=== PATIENT | female | born 1945 | race Caucasian/White ===

== ENCOUNTER → 2019-03-06 11:23 | Outpatient (CLI) | payer MEDICARE, OTHER, SELFPAY ==
--- NOTE | 2019-03-06 11:25 | DI.RAD.S_ITS ---
PROCEDURE: FL UPPER GI SERIES INDICATIONS: dysphagia COMPARISON: None. FINDINGS: Single contrast examination was performed due to limited patient mobility, body habitus and shortness of breath. KUB: Preprocedural histology specialist film demonstrates a normal bowel gas pattern. No suspicious abdominal calcifications. Visualized solid organ contours appear normal. Bony structures appear unremarkable. Esophagus: There is mildly decreased esophageal peristalsis. No strictures, extrinsic mass effects, or diverticula. There is gastroesophageal reflux to the level of the midesophagus. No hiatal hernia. Stomach: Stomach is normally distensible, without extrinsic mass effects. Pylorus and duodenal bulb demonstrate normal single-contrast morphology. There is ready transit of contrast through the gastric outlet into the small bowel. IMPRESSION: Spontaneous gastroesophageal reflux and mild esophageal dysmotility. No gross stricture identified. Dictated by: Gui Blair M.D. on 03/06/2019 at 13:25 Approved by: Gui Blair M.D. on 03/06/2019 at 13:26
[2019-03-06 12:00] LABS: Blood Urea Nitrogen 24 mg/dL (7-17); Estimated Glomerular Filt Rate > 60.0 mL/min (>60)
--- NOTE | 2019-03-06 12:08 | DI.CT.S_ITS ---
PROCEDURE: CT ABDOMEN PELVIS W CON INDICATIONS: dysphagia TECHNIQUE: After the administration of intravenous contrast, 5 mm thick sections acquired from the diaphragm to the symphysis. 5 mm coronal and sagittal reformats were acquired. For radiation dose reduction, the following was used: automated exposure control, adjustment of mA and/or kV according to patient size. COMPARISON: [facility], RG, CT ABDOMEN/PELVIS WITHOUT CONTRAST, 11/26/2015, 11:46. FINDINGS: Image quality: Excellent. ABDOMEN: Lung bases: No acute consolidation. Scattered subsegmental atelectasis and/or scarring. Heart size is normal. Solid organs: Hepatic steatosis. No focal hepatic lesion identified. Gallbladder unremarkable. Biliary system is non dilated. Pancreas enhances normally. Spleen is normal in size and enhancement. Multiple bilateral adrenal nodules measuring up to 1.5 cm on the left and 2.6 cm on the right, which are unchanged since 11/26/15. Therefore, statistically adenomas. No hydronephrosis. Bilateral renal cysts, with simple appearance although some of these are technically too small to characterize accurately. Peritoneum and bowel: No free fluid or free air. No evidence of bowel obstruction. There is question of distal stomach/proximal duodenal wall thickening however evaluation is suboptimal due to partially collapsed state. Also this may be grossly unchanged since 11/26/15 although difficult exact comparison of the presence of oral contrast material on the prior study. If necessary, upper endoscopy to could be performed to further investigate. Rectum is grossly unremarkable. Intra-abdominal postsurgical changes Nodes and vessels: No retroperitoneal or mesenteric adenopathy by size criteria. Infrarenal abdominal aortic aneurysm measuring 4.0 x 3.4 cm in cross-sectional dimensions and there is intraluminal thrombus. This has increased/developed since the prior study and consider surgical consultation/clinical management. Continued surveillance with ultrasound or CT recommended Miscellaneous: No ventral hernias. PELVIS: Genitourinary: Bladder wall thickness is normal. Miscellaneous: No inguinal hernias or adenopathy. Bones: No suspicious bony lesions. Lumbar vertebral body presumed bone island, unchanged No vertebral body compression fractures. IMPRESSION: Possible distal gastric and proximal duodenal wall thickening although technically uncertain clinical significance and etiology. If clinically necessary, this can be further investigated with upper endoscopy. Interval development of 4 cm infrarenal aortic aneurysm with intraluminal thrombus. Recommend surgical consultation/clinical management. Continued surveillance with ultrasound or CT could be performed. Bilateral renal cysts. Hepatic steatosis. Status post cholecystectomy. Unchanged bilateral adrenal adenomas Dictated by: Gui Blair M.D. on 03/06/2019 at 12:44 Approved by: Gui Blair M.D. on 03/06/2019 at 12:59
== END ==
PROVIDERS: PCP Nurse Practitioner Gerontology; Visit Provider Surgery
DX: R13.10 Dysphagia, unspecified (principal); N28.1 Cyst of kidney, acquired; K76.0 Fatty (change of) liver, not elsewhere classified; I71.4 Abdominal aortic aneurysm, without rupture; D35.02 Benign neoplasm of left adrenal gland; D35.01 Benign neoplasm of right adrenal gland; K21.9 Gastro-esophageal reflux disease without esophagitis; K22.4 Dyskinesia of esophagus; Z90.49 Acquired absence of other specified parts of digestive tract
CPT/HCPCS: 36415; 74177; 74240; 82565; 84520; Q9967

== ENCOUNTER 2019-05-22 13:51 | Day surgery (SDC) | payer MEDICARE, OTHER, SELFPAY ==
--- NOTE | 2019-05-22 | PATH_ITS ---
[facility] Accession Number: [id number] . 01 Material submitted: . PART A: gastrointestinal site - ANTRUM BIOPSIES PART B: esophagus - ESOPHAGEAL BIOPSIES PART C: colon - TRANSVERSE COLON PART D: colon - SPLENIC FLEXURE . 02 Diagnosis: A. Biopsies, Gastric Antrum: Mucosal hyperemia without associated significant inflammation involving the antral mucosa. Negative for evidence of Helicobacter on the H/E stain. Negative for intestinal metaplasia. Negative for dysplasia and malignancy. . B. Esophageal Biopsies: Fragments of squamocolumnar junction mucosa negative for specialized metaplasia of Jensen's-type esophagus. Negative for dysplasia and malignancy. Negative for squamous intraepithelial eosinophils. . C. Biopsy, Transverse Colon: Tubular adenoma. . D. Biopsy, Splenic Flexure: Tubular adenoma involving all biopsy fragments. [facility]/05/24/2019 . 02 Electronically signed: . Viraj Diego MD, Pathologist NPI- [id number] . 01 Gross description: . Part A: ANTRUM BIOPSIES: Received in formalin is 1 fragment(s) of ritchie, soft tissue measuring 0.5 x 0.3 x 0.1 cm submitted entirely in 1 cassette(s) Part B: ESOPHAGEAL BIOPSIES: Received in formalin are 2 fragment(s) of ritchie, soft tissue measuring 0.2 x 0.2 x 0.2 cm to 0.1 x 0.1 x 0.1 cm submitted entirely in 1 cassette(s) Part C: TRANSVERSE COLON: Received in formalin is 1 fragment(s) of ritchie, soft tissue measuring 0.7 x 0.4 x 0.3 cm submitted entirely in 1 cassette(s) Part D: SPLENIC FLEXURE: Received in formalin are multiple fragment(s) of ritchie, soft tissue measuring 0.7 x 0.4 x 0.1 cm in aggregate submitted entirely in 1 cassette(s) /CKI /CKI . 02 Pathologist provided ICD-10: D12.3 . 02 CPT . 858681, 671538, 617199, 738236 Performed at: 01 [facility] [address] [id number] MD Dawood Sosa MD Phone: [phone] Performed at: 02 [facility] [address] [place] [id number] MD Deb Luna MD Phone: [phone]
[2019-05-22 14:39] VITALS: BMI 34.4
[2019-05-22 14:46] VITALS: BP 168/90; PULSE 84; RESP 32; TEMP 36.7; O2SAT 94
--- NOTE | 2019-05-22 15:21 | P.HP_ITS ---
History of Present Illness Date Patient Seen: 05/22/19 Time Patient Seen: 15:21 Chief complaint: [id number] Narrative: 73yo F with extensive past medical and surgical history. She is an obese, active and adamant smoker. She has COPD and is s/p partial lung resection; on 2LNC at home. Has had cardiac bypass surgery. She has DM with a recent HbA1c of 6.7%. Her abd surgical history includes a remote DENA via midline laparotomy, tubal ligation via pfannenstiel incision, an apparent open cholecystectomy, an appendectomy, and two ventral hernia repairs using mesh. She says she has [address] currently. She also says she has had 'a lot of' her intestines removed but is unclear when or why. She says they always find polyps on her colonoscopies, last being in 2017 with a plan for 5 year follow up. Her current complaints are the 'ballooning' of her abdomen, increases as the day goes on, is uncomfortable and throws her off balance. She also says she feels food get stuck in her 'sternum, like it is hitting a wall' and it makes her worried to keep eating. Has never vomited or choked. This happens intermittently and she is not sure of any correlations. Does have a long- standing history of heartburn and takes a daily omeprazole which mostly but not entirely controls it. Does not recall having an EGD. No weight loss reported other than minimally because she is trying to improve her health. 03/22- FU after imaging. No current complaints of dysphagia or heartburn. UGI shows mild GERD and mild esophageal dysmotility. CT shows no hernia but diastasis of the abdominal wall. An infrarenal AAA with clot is noted, as is possible wall thickening of the distal stomach and proximal duodenum. When explaining that pt had no hernia, she asked what then was making 'the pain in my sternum' especially when laying supine. I explained this is likely due to reflux. When discussing endoscopy, she says she thinks she is due for a colonoscopy and last time 28 polyps were taken out. Mentions in passing as we end the interview that she is supposed to be on oxygen and is waiting for a mobile pack. 05/22- for procedures, no changes Patient History Family History Mother Hypertension Father Heart disease Grandmother Diabetes mellitus Grandfather Cancer Social History Smoking Status: Current every day smoker Family & Social History Family History Mother Hypertension Father Heart disease Grandmother Diabetes mellitus Grandfather Cancer Tobacco & Substance use: Smoking Status Current every day smoker Meds Home Medications Medication Instructions Recorded Confirmed Type aspirin 81 mg tablet,delayed 81 mg PO DAILY 02/14/19 05/22/19 History release atorvastatin 80 mg tablet 80 mg PO DAILY 02/14/19 05/22/19 History budesonide-formoterol HFA 160 2 puff INHALATION BID 02/14/19 05/22/19 History mcg-4.5 mcg/actuation aerosol inhaler cetirizine 10 mg capsule 10 mg PO DAILY cap 02/14/19 05/22/19 History ezetimibe 10 mg tablet 10 mg PO DAILY 02/14/19 05/22/19 History furosemide 40 mg tablet 40 mg PO DAILY 02/14/19 05/22/19 History insulin glargine (U-100) 100 35 unit SUBCUT DAILY 02/14/19 05/22/19 History unit/mL (3 mL) subcutaneous pen isosorbide mononitrate ER 30 mg 30 mg PO BID tab 02/14/19 05/22/19 History tablet,extended release 24 hr lorazepam 0.5 mg tablet 0.5 mg PO QD-BID PRN 02/14/19 05/22/19 History metoprolol succinate ER 50 mg 50 mg PO BID each 02/14/19 05/22/19 History capsule sprinkle, ext. release 24 hr insulin aspart U-100 [Novolog 3 unit SUBCUT QPM 05/22/19 05/22/19 History Flexpen U-100 Insulin] levalbuterol tartrate [Xopenex HFA] 1 puff INHALATION PRN PRN 05/22/19 05/22/19 History nitroglycerin 0.4 mg SUBLINGUAL Q5-15M PRN 05/22/19 05/22/19 History omeprazole 1 tab PO DAILY 05/22/19 05/22/19 History Allergies Allergy/AdvReac Type Severity Reaction Status Date / Time latex Allergy Unknown Rash Verified 05/22/19 14:52 Sulfa (Sulfonamide Allergy Unknown vomiting, Verified 05/22/19 14:52 Antibiotics) rash Review of Systems Constitutional Constitutional: Reports as per HPI Exam Vital Signs (past 8 hours): - 05/22/19 14:46 Temperature 98.1 F Pulse Rate 84 Respiratory Rate 32 H Blood Pressure 168/90 H Pulse Oximetry 94 Oxygen Delivery Method Room Air Narrative Exam Narrative: AAO, NAD, obese female EOMI, MMM, no scleral icterus mildly labored RA soft, nd has rolling walker Assessment & Plan (1) Dysphagia: Current visit: Yes Status: Acute Assessment & Plan narrative: - reflux and esophageal dysmotility, also wall thickening on CT --> plan for EGD with biopsies, hold PPI --> all R/B/A discussed and pt wishes to proceed --> propofol due to co-morbid conditions - due for surveillance colonoscopy per our records so will do at same time
[2019-05-22] MEDS: LACTATED RINGERS 1,000 ML 42 ML IV (15:44)
[2019-05-22] MEDS: TETRACAINE/BENZOCAINE/BUTAMBEN (CETACAINE) BOTTLE 1 SPRAY TOP (16:18)
[2019-05-22 17:01] VITALS: BP 111/38; PULSE 78; RESP 22; TEMP 36.2; O2SAT 95
--- NOTE | 2019-05-22 17:03 | P.OP.ENDO_ITS ---
Operative Date/Time/Diagnoses Date of procedure: 05/22/19 Time of procedure: 17:02 Pre-op diagnosis: 1. GERD 2. History of colon polyps Post-op diagnosis: same Procedure & Clinicians Study performed: 1. EGD with biopsies 2. Surveillance colonoscopy Same procedure as scheduled: Yes Indications: 73yo F with extensive medical co-morbid conditions including angina, COPD, AAA, and high smoking history with need for dx EGD for GERD and epigastric pain as well as a surveillance colonoscopy for history of 'extensive polyp removal.' I have asked anesthesia to be involved for her high risk sedation. Surgeon: Radha Caballero Procedure Notes SCOAP/Timeout: 1606 Procedure in detail: After obtaining informed consent, the patient was brought to the GI suite and placed in the right lateral decubitus position due to her comfort on the examination table. After placement of appropriate monitors, the patient was induced until an appropriate level of sedation was achieved. A time out was held per SCOAP protocol. A bite block was gently placed between the patient's teeth. The endoscope was lubricated and then passed into the patient's posterior oropharynx. Pt had a severe coughing response and had copious secretions requiring brief cessation of endoscopy and suctioning. Then the esophagus was cannulated under direct vision and the scope was passed to the second portion of the duodenum without difficulty. The scope was then withdrawn with careful examination of all areas of the upper GI tract and mucosa. In the stomach, the instrument was retroflexed and the GE junction examined. The scope was straightened and the procedure continued with examination of the remainder of the upper GI tract. Findings include chronic gastritis changes and an antral biopsy is sent for h pylori. Also noted is a 1cm discolored pale patch of mucosa at 15cm in the proximal esophagus- this was biopsied. Air was aspirated from the stomach and the endoscope gently removed from the esophagus. The examination table was tu rned, patient placed in left lateral decubitus, and we continued with the colonoscopy. A digital rectal examination was performed and did not reveal any masses or obstructing lesions. The colonoscope was gently passed into the patient's anus and the entire colon navigated to the level of the ileocolic anastomosis, which patient had not reported to us, with minimal difficulty. Prep was poor. Then the scope was slowly withdrawn being sure to go before and beyond all mucosal folds and prominences as able to get a thorough examination. Two 1cm polyps are noted, in the transverse colon (75cm) and the splenic flexure (65cm). The first was removed for biopsy and the second incompletely removed for biopsy. A diminutive rectal polyp is noted on retroflexion. At the level of the rectal vault, the scope was retroflexed and the internal anal canal was examined. The scope was straightened and air aspirated from the colon. The instrument was removed from the patient's body and the procedure was concluded. The patient was allowed to awaken from sedation without difficulty and taken to the post-anesthesia care unit in good condition. Scope withdrawal time: 18 min Sedation minutes: 47 Findings: gastritis, polyp (1. Transverse colon polyp- 75cm (<1cm), removed for biopsy 2. Splenic flexure polyp- 65cm (<1cm), incompletely removed for biopsy ) and other findings (1. proximal esophagus mucosal discoloration (at 15cm, 1cm patch of pale mucosa, soft on biopsy) ) Specimen(s): other (1. Antral biopsy for H pylor 2. Proximal esophageal biopsy 3. Transverse colon polyp- 75cm (<1cm), removed for biopsy 4. Splenic flexure polyp- 65cm (<1cm), incompletely removed for biopsy ) Complications: other (extensive coughing, secretions, and initial hypoxia at start of EGD which resolved with suctioning and anesthesia adjustments) Impression: 1. Chronic gastritis 2. Discolored mucosa in proximal esophagus- biopsied 3. Ileocolic anastomosis 4. Poor prep 5. Transverse colon polyp at 75cm- removed for biopsy 6. Splenic flexure polyp at 65 cm- incompletely removed for biopsy 7. Diminutive polyp in rectum noted on retroflexion, not removed Recommendations: Colonscopy in 5 years (pending path and medical condition ) and Continue medication(s) Follow up: weeks Disposition: PACU
[2019-05-22 17:06] VITALS: BP 108/69; PULSE 76; RESP 23; O2SAT 95
[2019-05-22 17:11] VITALS: BP 127/76; PULSE 74; RESP 36; O2SAT 96
[2019-05-22 17:52] VITALS: BP 121/79; PULSE 77; RESP 32; TEMP 36.4; O2SAT 95
== END 2019-05-22 17:45 | disposition home or self-care (01) ==
PROVIDERS: PCP Nurse Practitioner Gerontology; Visit Provider Surgery
PROC: 0DJ08ZZ Inspection of Upper Intestinal Tract, Via Natural or Artificial Opening Endoscopic (ICD-10-PCS; CPT 43235; principal; 2019-05-22 16:30)
PROC: 0DJD8ZZ Inspection of Lower Intestinal Tract, Via Natural or Artificial Opening Endoscopic (ICD-10-PCS; CPT 45378; 2019-05-22 16:30)
DX: Z86.010 Personal history of colon polyps (principal); K21.9 Gastro-esophageal reflux disease without esophagitis; F17.210 Nicotine dependence, cigarettes, uncomplicated; J44.9 Chronic obstructive pulmonary disease, unspecified; E11.9 Type 2 diabetes mellitus without complications; E66.9 Obesity, unspecified; Z79.4 Long term (current) use of insulin; K29.70 Gastritis, unspecified, without bleeding; R09.02 Hypoxemia; D12.3 Benign neoplasm of transverse colon
CPT/HCPCS: 45380; 43239; 88305; 99152; 99153; J2704; J3010

== ENCOUNTER → 2019-06-11 07:19 | Outpatient (CLI) | payer MEDICARE, OTHER, SELFPAY ==
--- NOTE | 2019-06-11 15:35 | PM.TREADMILL ---
Cardiac Stress Test Report Referral & Results Date Patient Seen: 06/11/19 Requesting provider: Ernst Moran Indication: Coronary disease Rest ECG: Unremarkable Procedure Note: After both written and verbal informed consent the patient had an IV started by the diagnostic imaging RN, and then was hooked up to the treadmill monitoring system. The Lexiscan material, and then the Cardiolite tracer, were administered sequentially. An additional 3 min was spent monitoring the patient while supine on the gurney. The patient had a normal response to all infused materials. She did become quite dyspneic with the Lexiscan infusion but this resolved (mostly resolved anyway) prior to the termination of the monitoring period. Impression: Response to infuse materials as above Please see perfusion imaging for details regarding possible ischemia Please note: Actual ECG tracings can be found in the PACS system.
--- NOTE | 2019-06-11 21:58 | DI.NM.S_ITS ---
DATE OF SERVICE: 06/11/2019 PROCEDURE: Pharmacological perfusion study. INDICATIONS: Interscapular pain with known history of coronary artery disease, status post single-vessel bypass surgery with GALEAS graft in 2001, hypertension, hyperlipidemia, diabetes mellitus, COPD, abdominal aortic aneurysm. RADIOPHARMACEUTICAL: 24.7 mCi technetium-99m Myoview IV was injected at stress and 14.9 mCi technetium-99m Myoview IV was injected at rest. CARDIAC STRESS: Patient underwent IV Lexiscan perfusion study under the supervision of an attending staff. Patient remained hemodynamically stable. Blood pressure is 180/100. Baseline rhythm was sinus with frequent PACs. I don't see obvious atrial fibrillation. There was asymmetrical anterolateral T- wave inversion. During stress, there was no new convincing ischemic changes. Patient remained to have frequent PACs as well as some PVCs without any ventricular tachycardia. RAW DATA: There was breast shadow seen. GATED STUDY: Stress LV ejection fraction 81% without any obvious wall motion abnormalities. I don't see any significant wall motion abnormalities. No transient ischemic dilatation. TID ratio is 0.93, which is within normal limits. Resting LV end-diastolic volume is 61 mL. Lung/heart ratio is 0.37, which is within normal limits. MYOCARDIAL PERFUSION SCAN: Please note that this patient does not have any prone images. Stress supine images were compared to with resting supine images. It appears to be that patient has predominantly fixed, moderate-sized severely decreased perfusion involving [id number] anterior wall and anterior apex without any reversible ischemia on visual inspection. CONCLUSION: 1. No obvious reversible ischemia. 2. Patient has predominantly fixed, moderate-sized severely decreased perfusion of [id number] anterior wall and anterior apex. On gated study, preserved left ventricular (LV) function without any wall motion abnormalities in those segments. On gated study, breast shadow was seen. In absence of prone images, difficult to distinguish whether it's a breast tissue attenuation artifact or previous myocardial infarction. Patient had perfusion study in 02/2015; at that time also she had similar perfusion defect. However, normal wall motion goes against the diagnosis of previous transmural myocardial infarction. Patient has baseline frequent premature atrial contractions (PACs). I don't see obvious atrial fibrillation. Baseline blood pressure was 180/100. Sum stress score is 6 and sum resting score is 4; however, on my visual inspection, I don't see any significant reversible ischemia. It's a predominantly fixed perfusion defect. Patient's weight is 230 pounds. Clinical correlation is recommended. Angie Swartz - JOANA/katherine/ doc#: [id number]/job#: [id number] dd: 06/11/2019 16:56:00 dt: 06/11/2019 17:42:00 DICTATING MD/COPIES TO: Festus Acevedo MD COPIES MNE: QUIN
== END ==
PROVIDERS: Family Provider Nurse Practitioner Gerontology; PCP Nurse Practitioner Gerontology; Visit Provider Internal Medicine Cardiovascular Disease
DX: I25.10 Atherosclerotic heart disease of native coronary artery without angina pectoris (principal); M25.519 Pain in unspecified shoulder; I10 Essential (primary) hypertension; E78.5 Hyperlipidemia, unspecified; E11.9 Type 2 diabetes mellitus without complications; J44.9 Chronic obstructive pulmonary disease, unspecified; I71.4 Abdominal aortic aneurysm, without rupture
CPT/HCPCS: 78452; 93016; 93017; 93018; A9502; J2785

== ENCOUNTER 2020-06-09 16:39 | Emergency (ER) | payer MEDICARE, OTHER, SELFPAY ==
[2020-06-09] VITALS (10 sets, daily range): BP systolic 144–167; BP diastolic 63–101; PULSE 73–103; RESP 20–39; TEMP 36.9; O2SAT 96–98
[2020-06-09] MEDS: ALBUTEROL HFA 200 PUFF/18 GM INH (COVID POS/VENT PTS) INH (17:17)
[2020-06-09 17:36] LABS: Add Manual Diff / Slide Review NO; Basophils Absolute Auto 100 /uL (0-100); Basophils Percent Auto 0.5 % (0-2); Eosinophils Absolute Auto 700 /uL (0-450); Eosinophils Percent Auto 4.8 % (2-4); Hematocrit 51.4 % (36-46); Hemoglobin 17.4 g/dL (12.0-16.0); Lymphocytes Absolute Auto 1600 /uL (1100-4500); Mean Corpuscular HGB Conc 33.9 % (30-36); Mean Corpuscular Hemoglobin 33.2 PG (26-34); Monocytes Absolute Auto 900 /uL (0-900); Monocytes Percent Auto 6.1 % (3-14); Neutrophils Absolute Auto 11100 /uL (1500-7000); Neutrophils Percent Auto 77.6 % (50-75); Platelet Count 191 X10^3/uL (150-400); Red Blood Cell Count 5.24 X10^6/uL (4.0-5.2); Red Cell Distribution Width 13.3 % (11.6-14.8); White Blood Cell Count 14.4 X10^3/uL (4.5-11.0)
[2020-06-09 18:06] LABS: Alanine Aminotransferase 34 IU/L (<35); Albumin 4.2 g/dL (3.5-5.0); Albumin Globulin Ratio 1.5 (1.0-2.8); Alkaline Phosphatase 136 U/L (38-126); Aspartate Aminotransferase 30 IU/L (14-36); BUN Creatinine Ratio 20.9 (6-22); Bilirubin Total 0.7 mg/dL (0.2-1.3); Blood Urea Nitrogen 24 mg/dL (7-17); Calcium 10.8 mg/dL (8.4-10.2); Carbon Dioxide 34 mmol/L (22-32); Chloride 101 mmol/L (98-107); Creatine Kinase 60 U/L (30-135); Globulin 2.8 g/dL (1.7-4.1); Glucose 131 mg/dL (80-110); HEMOLYSIS < 15 (0-50); Potassium 4.3 mmol/L (3.4-5.1); Sodium 140 mmol/L (137-145)
[2020-06-09 18:07] LABS: C-Reactive Protein Quant < 0.5 mg/dL (<1.0)
[2020-06-09 18:16] LABS: NT-proBNP (BNP-Adult 18+) 294 pg/mL (<450); Troponin I < 0.012 ng/mL (0.01-0.034)
[2020-06-09 18:20] LABS: Procalcitonin < 0.05 ng/mL (<0.5)
--- NOTE | 2020-06-09 18:30 | ED_ITS ---
HPI - SOB/Dyspnea General Chief Complaint: Shortness of Breath/Dyspnea Stated Complaint: shortness of breath w/ cough Time Seen by Provider: 06/09/20 16:47 Source: patient and EMS Mode of arrival: EMS Limitations: no limitations History of Present Illness HPI Narrative: Patient is a 74-year-old female. Has a history of COPD. Has oxygen at home. Uses 2-3 L at night and some oxygen during the day if needed. States that for the past couple days she has had some problems breathing and wheezing. She has been using her Symbicort and Xopenex and albuterol nebulizer. She states that earlier today she started coughing and despite all of these prior interventions could not catch her breath. Denies any fevers. Called EMS. Prior to arrival here in the emergency department she did receive Solu-Medrol IV by EMS and also albuterol nebs. Patient states she has had no contact with anyone that his presenting symptoms of COVID-19. She has been taking all the rest of her medications. She is still smoking. Denies any chest pain. The time my evaluation patient states she feels much better but this was after the interventions that I just described. Related Data Home Medications Medication Instructions Recorded Confirmed aspirin 81 mg tablet,delayed 81 mg PO DAILY 02/14/19 05/22/19 release atorvastatin 80 mg tablet 80 mg PO DAILY 02/14/19 05/22/19 budesonide-formoterol HFA 160 2 puff INHALATION BID 02/14/19 05/22/19 mcg-4.5 mcg/actuation aerosol inhaler cetirizine 10 mg capsule 10 mg PO DAILY cap 02/14/19 05/22/19 ezetimibe 10 mg tablet 10 mg PO DAILY 02/14/19 05/22/19 furosemide 40 mg tablet 40 mg PO DAILY 02/14/19 05/22/19 insulin glargine 100 unit/mL (3 35 unit SUBCUT DAILY 02/14/19 05/22/19 mL) subcutaneous pen isosorbide mononitrate 30 mg 30 mg PO BID tab 02/14/19 05/22/19 tablet,extended release 24 hr lorazepam 0.5 mg tablet 0.5 mg PO QD-BID PRN 02/14/19 05/22/19 metoprolol succinate 50 mg capsule 50 mg PO BID each 02/14/19 05/22/19 sprinkle, ext. release 24 hr Novolog Flexpen U-100 Insulin 3 unit SUBCUT QPM 05/22/19 05/22/19 levalbuterol tartrate 1 puff INHALATION PRN PRN 05/22/19 05/22/19 nitroglycerin 0.4 mg SUBLINGUAL Q5-15M PRN 05/22/19 05/22/19 omeprazole 1 tab PO DAILY 05/22/19 05/22/19 Previous Rx's Medication Instructions Recorded levofloxacin 750 mg PO DAILY 4 Days #4 tab 06/09/20 Allergies Allergy/AdvReac Type Severity Reaction Status Date / Time latex Allergy Unknown Rash Verified 05/22/19 14:52 Sulfa (Sulfonamide Allergy Unknown vomiting, Verified 05/22/19 14:52 Antibiotics) rash Review of Systems Constitutional Constitutional: Denies fever(s) and Denies headache(s) ENT Ears, Nose, Mouth, and Throat: Denies headache(s) Cardiovascular Cardiovascular: Denies chest pain and Reports dyspnea Respiratory Respiratory: Reports cough and Reports dyspnea Gastrointestinal Gastrointestinal: Denies abdominal pain, Denies nausea and Denies vomiting Musculoskeletal Musculoskeletal: Denies arthralgias and Denies myalgias Integumentary/Breasts Skin/Breast: Denies rash Neurologic Neurologic: Denies behavioral changes and Denies headache(s) Psychiatric Psychiatric: Denies behavioral changes Hematologic/Lymphatic Hematologic/Lymphatic: Denies easy bleeding and Denies easy bruising Allergic/Immunologic Allergic/Immunologic: Denies urticaria Patient History Medical History COPD (chronic obstructive pulmonary disease) (Acute) Diabetes (Acute) Family History Mother Hypertension Father Heart disease Grandmother Diabetes mellitus Grandfather Cancer Social History Smoking Status: Current every day smoker Smoking Status: Current every day smoker Exam Initial Vital Signs Initial Vital Signs: Vital Signs Temperature 98.4 F 06/09/20 17:27 Pulse Rate 73 06/09/20 17:27 Respiratory Rate 20 06/09/20 17:27 Blood Pressure 167/72 H 06/09/20 17:27 Pulse Oximetry 97 06/09/20 17:27 Const General: cooperative and comfortable Limitations: mental status not altered HENMT Head: normal to inspection and normocephalic Resp Effort & Inspection: normal respiratory effort, not labored and tachypneic Auscultation: clear to auscultation bilaterally and no wheezes Cardio Rate: regular rate Rhythm: regular rhythm GI Inspection: non-distended Palpation: soft Skin Lesions: no lesions Rashes: no rashes Neuro General: patient alert, patient awake and patient oriented x3 Cognition: normal cognition Speech: speech normal Extrem General: normal to inspection and capillary refill normal Psych Appearance: grossly normal and well kempt Scores GCS [place] coma scale eye opening: Spontaneous [place] coma scale verbal response: Orientated [place] coma scale motor response: Obey commands [place] coma scale total score: 15 Course Orders Ordered: ED Orders 06/09/20 16:47 Procalcitonin Stat 06/09/20 16:48 High flow/High humidity nasal NOW 06/09/20 17:10 C-Reactive Protein Quant Stat Complete Blood Count AUTO DIFF Stat Comprehensive Metabolic Panel Stat Ferritin Stat NT-proBNP (BNP-Adult 18+) Stat Troponin & CK Cardiac Panel Stat 06/09/20 18:30 XR chest 1V Stat Discontinued Medications Albuterol (Ventolin Hfa (Vent/Covid R/O)) 2 puff INH Q4H PRN PRN Reason: Shortness Of Breath Last Admin: 06/09/20 17:17 Dose: 2 puff Documented by: ROBIN Levofloxacin (Levaquin) 750 mg PO NOW ONE Stop: 06/09/20 19:23 Last Admin: 06/09/20 19:34 Dose: 750 mg Documented by: SAMMI Methylprednisolone (Solu-Medrol 125 Mg Vial) 125 mg IV NOW ONE Stop: 06/09/20 18:42 Last Admin: 06/09/20 19:53 Dose: Not Given Documented by: DESHAWN Vital Signs Vital signs: Vital Signs - 8 hr 06/09/20 17:27 06/09/20 17:28 06/09/20 18:07 Temperature 98.4 F Pulse Rate 73 103 H 96 H Respiratory Rate 20 22 24 Blood Pressure 167/72 H Pulse Oximetry 97 96 96 06/09/20 18:09 06/09/20 18:12 06/09/20 18:31 Temperature Pulse Rate 98 H 100 H 101 H Respiratory Rate 24 39 H 39 H Blood Pressure 152/66 H 152/66 H 148/101 H Pulse Oximetry 97 97 06/09/20 19:00 06/09/20 19:01 06/09/20 19:30 Temperature Pulse Rate 98 H 97 H 93 H Respiratory Rate 38 H 34 H 29 H Blood Pressure 144/78 H Pulse Oximetry 98 97 97 06/09/20 19:31 Temperature Pulse Rate 92 H Respiratory Rate 25 H Blood Pressure 149/63 H Pulse Oximetry 97 MDM - SOB/Dyspnea Medical Records Attestation: I reviewed the patient's medical records. Lab Data Attestation: I reviewed the patient's lab results. Result diagrams: 06/09/20 17:10 06/09/20 17:10 Labs: Lab Results 06/09/20 06/09/20 06/09/20 Range/Units 14:10 16:47 17:10 WBC 14.4 H (4.5-11.0) X10^3/uL RBC 5.24 H (4.0-5.2) X10^6/uL Hgb 17.4 H (12.0-16.0) g/dL Hct 51.4 H (36-46) % MCV 98.0 (80-100) fL MCH 33.2 (26-34) PG MCHC 33.9 (30-36) % RDW 13.3 (11.6-14.8) % Plt Count 191 (150-400) X10^3/uL Neut % (Auto) 77.6 H (50-75) % Lymph % (Auto) 11.0 L (25-40) % Meagher % (Auto) 6.1 (3-14) % Eos % (Auto) 4.8 H (2-4) % Baso % (Auto) 0.5 (0-2) % Neut # (Auto) 91014 H (2033-5969) /uL Lymph # (Auto) 1600 (0362-8615) /uL Meagher # (Auto) 900 (0-900) /uL Eos # (Auto) 700 H (0-450) /uL Baso # (Auto) 100 (0-100) /uL Sodium (137-145) mmol/L Potassium (3.4-5.1) mmol/L Chloride (98-107) mmol/L Carbon Dioxide (22-32) mmol/L BUN (7-17) mg/dL Creatinine (0.52-1.04) mg/dL Estimated GFR (>60) mL/min BUN/Creatinine Ratio (6-22) Glucose (80-110) mg/dL Calcium (8.4-10.2) mg/dL Ferritin (11-264) ng/mL Total Bilirubin (0.2-1.3) mg/dL AST (14-36) IU/L ALT (<35) IU/L Alkaline Phosphatase (38-126) U/L Total Creatine Kinase (30-135) U/L CK-MB (CK-2) CK-MB (CK-2) Rel Index Troponin I (0.01-0.034) ng/mL C-Reactive Protein (<1.0) mg/dL NT-Pro-B Natriuret Pep (<450) pg/mL Total Protein (6.3-8.2) g/dL Albumin (3.5-5.0) g/dL Globulin (1.7-4.1) g/dL Albumin/Globulin Ratio (1.0-2.8) Procalcitonin < 0.05 (<0.5) ng/mL COVID-19 PCR Cancelled 06/09/20 06/09/20 Range/Units 17:10 17:10 WBC (4.5-11.0) X10^3/uL RBC (4.0-5.2) X10^6/uL Hgb (12.0-16.0) g/dL Hct (36-46) % MCV (80-100) fL MCH (26-34) PG MCHC (30-36) % RDW (11.6-14.8) % Plt Count (150-400) X10^3/uL Neut % (Auto) (50-75) % Lymph % (Auto) (25-40) % Meagher % (Auto) (3-14) % Eos % (Auto) (2-4) % Baso % (Auto) (0-2) % Neut # (Auto) (8855-5174) /uL Lymph # (Auto) (0037-4084) /uL Meagher # (Auto) (0-900) /uL Eos # (Auto) (0-450) /uL Baso # (Auto) (0-100) /uL Sodium 140 (137-145) mmol/L Potassium 4.3 (3.4-5.1) mmol/L Chloride 101 (98-107) mmol/L Carbon Dioxide 34 H (22-32) mmol/L BUN 24 H (7-17) mg/dL Creatinine 1.15 H (0.52-1.04) mg/dL Estimated GFR 46.0 L (>60) mL/min BUN/Creatinine Ratio 20.9 (6-22) Glucose 131 H (80-110) mg/dL Calcium 10.8 H (8.4-10.2) mg/dL Ferritin 50 (11-264) ng/mL Total Bilirubin 0.7 (0.2-1.3) mg/dL AST 30 (14-36) IU/L ALT 34 (<35) IU/L Alkaline Phosphatase 136 H (38-126) U/L Total Creatine Kinase 60 (30-135) U/L CK-MB (CK-2) TNP CK-MB (CK-2) Rel Index TNP Troponin I < 0.012 (0.01-0.034) ng/mL C-Reactive Protein < 0.5 (<1.0) mg/dL NT-Pro-B Natriuret Pep 294 (<450) pg/mL Total Protein 7.0 (6.3-8.2) g/dL Albumin 4.2 (3.5-5.0) g/dL Globulin 2.8 (1.7-4.1) g/dL Albumin/Globulin Ratio 1.5 (1.0-2.8) Procalcitonin (<0.5) ng/mL COVID-19 PCR Negative Point of Care Testing Glucose POC 104 Imaging Data Chest x-ray: Radiologist's Impression: [address] [address] XRay Report Signed Patient: Angie Swartz RMR#: [id number] : 4Acct:[id number] Age/Sex: 74 / FDate of Service: 06/09/20 Loc: ED Accession Number: [id number] Procedure: XR chest 1V Ordering Provider: Jason Mccray D.O. PROCEDURE: XR CHEST 1V INDICATIONS: Shortness of breath TECHNIQUE: One view of the chest was acquired. COMPARISON: [facility], RG, CT THORAX WITH CONTRAST, 12/21/2018, 12:01. FINDINGS: Surgical changes and devices: Chain sutures in the left lung. Lungs and pleura: Small left pleural effusion with overlying atelectasis/consolidation. The right lung and pleural space are clear. Mediastinum: Aortic atherosclerosis. Mediastinal contours appear normal. Heart size is normal. Bones and chest wall: No suspicious bony lesions. Overlying soft tissues appear unremarkable. IMPRESSION: Small left pleural effusion with overlying atelectasis and consolidation. Dictated by: Alexsander Saleh M.D. on 06/09/2020 at 18:57 Approved by: Alexsander Saleh M.D. on 06/09/2020 at 18:58 ECG Data Attestation: I personally reviewed and interpreted this ECG as follows: Prior ECG tracings: not available for review Interpretation: Sinus rhythm Normal axis Ventricular rate of 99 Occasional PVC Normal QTC Nonspecific ST T wave changes MDM Narrative Medical decision making narrative: Patient's code was negative. The time my evaluation she had received albuterol nebs and also steroids. Patient reports that she was feeling much better. She was on less than 3 L of oxygen by nasal cannula which she has at home and uses occasionally. Chest x-ray does have some concerning findings for pneumonia however she reports no increasing cough or sputum production. She does have a leukocytosis. I do not think that this leukocytosis is secondary to the steroids that she received just a short time prior to arrival here in the ER. I feel that given the findings on the chest x- ray the coughing and the leukocytosis that treating her with antibiotics is not unreasonable. She is given a 1st dose here in the ER. Will send home with a prescription. Patient states she does have prednisone at home that she was given by her knurling machine operator to take if needed. She has not been taking these over the past couple days. I did advise her to start taking them as directed which is 40 mg a day for the next 5 days. Patient denies any chest pain. She is back to baseline with regard to her respiratory status. We did discuss steroids and healthy help in her disease process. She did not understand exactly how these medications helped her. We discussed return precautions and follow-up instructions. She expressed understanding and agreement. Discharge Plan Departure Patient Disposition: Home Clinical Impression: COPD exacerbation Pneumonia Qualifiers: Pneumonia type: due to unspecified organism Laterality: left Lung location: unspecified part of lung Qualified Code(s): J18.9 - Pneumonia, unspecified organism Discharge Date/Time: 06/09/20 20:20 Instructions: Chronic Obstructive Pulmonary Disease Activity Restrictions/Additional Instructions: Continue all of your medications as directed. I do recommend that tomorrow you start taking the prednisone that was prescribed to you by your lung doctor as directed. You were given your 1st dose of antibiotics here in the emergency department. Your next dose will be Tuesday06/10/20. Return to the emergency department for any new or worsening symptoms. Your prescription was electronically transmitted to [facility] pharmacy in [place]. Prescriptions: New levofloxacin 750 mg tablet 750 mg PO DAILY 4 Days Qty: 4 RF: 0 No Action ezetimibe [Zetia] 10 mg tablet 10 mg PO DAILY RF: 0 Symbicort 160-4.5 mcg/actuation HFA aerosol inhaler 2 puff INHALATION BID RF: 0 furosemide 40 mg tablet 40 mg PO DAILY RF: 0 metoprolol succinate 50 mg capelina,ER 24hr dose pack 50 mg PO BID RF: 0 isosorbide mononitrate 30 mg tablet extended release 24 hr 30 mg PO BID RF: 0 atorvastatin 80 mg tablet 80 mg PO DAILY RF: 0 lorazepam 0.5 mg tablet 0.5 mg PO QD-BID PRN (Reason: Anxiety) RF: 0 aspirin 81 mg tablet,delayed release (DR/EC) 81 mg PO DAILY RF: 0 cetirizine 10 mg capsule 10 mg PO DAILY RF: 0 Lantus Solostar U-100 Insulin 100 unit/mL (3 mL) insulin pen 35 unit SUBCUT DAILY RF: 0 omeprazole 20 mg capsule,delayed release(DR/EC) 1 tab PO DAILY RF: 0 nitroglycerin 0.4 mg Tablet, Sublingual 0.4 mg SUBLINGUAL Q5-15M PRN (Reason: Chest Pain) RF: 0 levalbuterol tartrate 45 mcg/actuation HFA aerosol inhaler 1 puff inhalation PRN PRN (Reason: Dyspnea) RF: 0 Novolog Flexpen U-100 Insulin 100 unit/mL (3 mL) Insulin Pen 3 unit SUBCUT QPM RF: 0 Referrals: Deb Martin ARNP [Primary Care Provider] -
[2020-06-09 18:38] LABS: Ferritin 50 ng/mL (11-264)
[2020-06-09 18:56] LABS: COVID19 -Nasal RAPID Negative (Negative)
[2020-06-09] MEDS: levoFLOXacin 250 MG TABLET 750 MG PO (19:34)
== END 2020-06-09 20:20 | disposition home or self-care (01) ==
PROVIDERS: Emergency Medicine; Emergency Provider Emergency Medicine; Family Provider Nurse Practitioner Gerontology; PCP Nurse Practitioner Gerontology
DX: J44.1 Chronic obstructive pulmonary disease with (acute) exacerbation (principal); J18.9 Pneumonia, unspecified organism
CPT/HCPCS: 36415; 71045; 80053; 82550; 82728; 83880; 84145; 84484; 85025; 86140; 87635; 93005; 93010; 94640; 99284; 99285; A9270

== ENCOUNTER 2020-06-19 16:54 | Observation (INO) | payer MEDICARE, OTHER, SELFPAY ==
[2020-06-19] VITALS (14 sets, daily range): BP systolic 133–186; BP diastolic 66–86; PULSE 66–80; RESP 16–31; TEMP 36.1–36.9; O2SAT 91–97; BMI 33.3; BMI 34.5
--- NOTE | 2020-06-19 17:07 | DI.RAD.S_ITS ---
PROCEDURE: XR CHEST 2V INDICATIONS: shortness of breath TECHNIQUE: 2 views of the chest were acquired. COMPARISON: [facility], , XR CHEST 1V, 06/09/2020, 18:43. FINDINGS: Surgical changes and devices: None. Lungs and pleura: Lungs are clear. No pleural effusions or pneumothorax. Pleural scar is redemonstrated at the left costophrenic sulcus. Mediastinum: Mediastinal contours are normal. Heart size is enlarged, as before. Atheromatous calcifications are present at the thoracic aortic arch. Bones and chest wall: No suspicious bony abnormalities. Soft tissues appear unremarkable. IMPRESSION: No acute cardiopulmonary findings. Dictated by: Tricia Gastelum M.D. on 06/19/2020 at 16:58 Approved by: Tricia Gastelum M.D. on 06/19/2020 at 16:59
[2020-06-19 17:23] LABS: Add Manual Diff / Slide Review NO; Basophils Absolute Auto 0 /uL (0-100); Basophils Percent Auto 0.3 % (0-2); Eosinophils Absolute Auto 400 /uL (0-450); Eosinophils Percent Auto 3.8 % (2-4); Hematocrit 47.3 % (36-46); Hemoglobin 16.3 g/dL (12.0-16.0); Lymphocytes Absolute Auto 1000 /uL (1100-4500); Lymphocytes Percent Auto 9.8 % (25-40); Mean Corpuscular HGB Conc 34.6 % (30-36); Mean Corpuscular Hemoglobin 33.6 PG (26-34); Monocytes Absolute Auto 900 /uL (0-900); Neutrophils Absolute Auto 7800 /uL (1500-7000); Neutrophils Percent Auto 77.1 % (50-75); Platelet Count 152 X10^3/uL (150-400); Red Blood Cell Count 4.87 X10^6/uL (4.0-5.2); Red Cell Distribution Width 13.8 % (11.6-14.8); White Blood Cell Count 10.1 X10^3/uL (4.5-11.0)
--- NOTE | 2020-06-19 17:25 | ED.SOB ---
HPI - SOB/Dyspnea General Chief Complaint: Shortness of Breath/Dyspnea Stated Complaint: States Pnuemonia not getting better Time Seen by Provider: 06/19/20 17:06 Source: patient Mode of arrival: Wheelchair Limitations: no limitations History of Present Illness HPI Narrative: The patient is a 74-year-old female history of COPD presenting with increasing shortness of breath. She was seen evaluated here 06/09/2020 diagnosed with pneumonia and a small left pleural effusion. She was placed on antibiotics followed up with her primary care provider who then extended the antibiotics for longer. She presented today to his office for re-evaluation in he said she continues to have increasing shortness of breath with exertion. She has been using Xopenex inhaler at home and albuterol nebulizers at home as well without any relief. She continues to have significant sputum production she says is abnormal for her. And she feels like her chest is tight and she cannot take a deep breath. Patient denies any fever. She does have oxygen at home however they are trying to get an oxygen concentrator for her for some reason the company is unable to do so. She has been on Levaquin and 5 day course of prednisone. MD Complaint: shortness of breath Context: recent illness Relieving factors: rest and bronchodilators Known history of: COPD Related Data Home oxygen amount: 2 liters Home Medications Medication Instructions Recorded Confirmed aspirin 81 mg tablet,delayed 81 mg PO DAILY 02/14/19 05/22/19 release atorvastatin 80 mg tablet 80 mg PO DAILY 02/14/19 05/22/19 budesonide-formoterol HFA 160 2 puff INHALATION BID 02/14/19 05/22/19 mcg-4.5 mcg/actuation aerosol inhaler cetirizine 10 mg capsule 10 mg PO DAILY cap 02/14/19 05/22/19 ezetimibe 10 mg tablet 10 mg PO DAILY 02/14/19 05/22/19 furosemide 40 mg tablet 40 mg PO DAILY 02/14/19 05/22/19 insulin glargine 100 unit/mL (3 35 unit SUBCUT DAILY 02/14/19 05/22/19 mL) subcutaneous pen isosorbide mononitrate 30 mg 30 mg PO BID tab 02/14/19 05/22/19 tablet,extended release 24 hr lorazepam 0.5 mg tablet 0.5 mg PO QD-BID PRN 02/14/19 05/22/19 metoprolol succinate 50 mg capsule 50 mg PO BID each 02/14/19 05/22/19 sprinkle, ext. release 24 hr Novolog Flexpen U-100 Insulin 3 unit SUBCUT QPM 05/22/19 05/22/19 levalbuterol tartrate 1 puff INHALATION PRN PRN 05/22/19 05/22/19 nitroglycerin 0.4 mg SUBLINGUAL Q5-15M PRN 05/22/19 05/22/19 omeprazole 1 tab PO DAILY 05/22/19 05/22/19 Allergies Allergy/AdvReac Type Severity Reaction Status Date / Time latex Allergy Unknown Rash Verified 06/19/20 17:05 Sulfa (Sulfonamide Allergy Unknown vomiting, Verified 06/19/20 17:05 Antibiotics) rash Review of Systems Constitutional Constitutional: Denies chills, Denies fever(s), Denies lethargy and Denies weakness Eyes Eyes: Denies change in vision, Denies eye discharge, Denies irritation and Denies loss of vision Cardiovascular Cardiovascular: Reports chest pain (thightness), Reports dyspnea and Reports dyspnea on exertion Respiratory Respiratory: Reports cough, Reports excessive phlegm production, Reports dyspnea, Reports dyspnea on exertion and Reports wheezing Gastrointestinal Gastrointestinal: Denies abdominal pain, Denies change in bowel habits, Denies diarrhea, Denies nausea and Denies vomiting Musculoskeletal Musculoskeletal: Denies back pain and Denies deformity Integumentary/Breasts Skin/Breast: Denies pruritus, Denies erythema, Denies rash and Denies wounds Neurologic Neurologic: Denies loss of vision and Denies weakness Allergic/Immunologic Allergic/Immunologic: Reports wheezing Patient History Medical History COPD (chronic obstructive pulmonary disease) (Acute) Coronary artery disease (Acute) Diabetes (Acute) Family History Mother Hypertension Father Heart disease Grandmother Diabetes mellitus Grandfather Cancer Social History Smoking Status: Current every day smoker Smoking Status: Current every day smoker Exam Initial Vital Signs Initial Vital Signs: Vital Signs Temperature 98.5 F 06/19/20 17:05 Pulse Rate 80 06/19/20 17:05 Respiratory Rate 18 06/19/20 17:05 Pulse Oximetry 95 06/19/20 17:05 GENERAL: Alert female and in no acute distress. HEENT: Head atraumatic,EOMI, pupils reactive, face symmetric, moist mucous membranes CARDIOVASCULAR: Regular rate and rhythm without murmurs, rubs or gallops. RESPIRATORY: Decreased breath sounds by laterally speaks in full sentences without any respiratory distress ABDOMEN: Soft, nontender. Normoactive bowel sounds all 4 quadrants. No guarding or rebound. EXTREMITIES: Normal range of motion, no clubbing or edema. Neurovascularly intact NEUROLOGICAL: Alert and oriented x4.Normal gait and speech. Cranial nerves II through XII grossly intact. SKIN: Warm, dry, no laceration, no petechiae, no rashes or lesions. Course Orders Ordered: ED Orders 06/19/20 17:06 EKG-12 Lead Stat 06/19/20 17:07 XR chest 2V Stat RT Consult Eval and Treat Now 06/19/20 17:10 Complete Blood Count AUTO DIFF Stat Comprehensive Metabolic Panel Stat 06/19/20 17:49 Lactate (Lactic Acid) Stat NT-proBNP (BNP-Adult 18+) Stat Procalcitonin Stat Troponin & CK Cardiac Panel Stat 06/19/20 19:34 Arterial Blood Gas Stat Discontinued Medications Albuterol (Ventolin Hfa Prepack) 1 box MISC SEEINSTR ONE Stop: 06/19/20 17:22 Last Admin: 06/19/20 17:26 Dose: 1 box Documented by: DAVONTE Ceftriaxone Sodium/Dextrose (Rocephin) 2 gm in 50 mls @ 100 mls/hr IV NOW ONE Stop: 06/19/20 19:15 Last Admin: 06/19/20 19:05 Dose: 100 mls/hr Documented by: GIUSEPPE Azithromycin 500 mg/ Dextrose 250 mls @ 250 mls/hr IV NOW ONE Stop: 06/19/20 18:47 Last Admin: 06/19/20 19:32 Dose: 250 mls/hr Documented by: GIUSEPPE Methylprednisolone (Solu-Medrol 125 Mg Vial) 125 mg IV NOW ONE Stop: 06/19/20 17:23 Last Admin: 06/19/20 17:44 Dose: 125 mg Documented by: KEVIN Ondansetron HCl (Zofran) 4 mg IV NOW ONE Stop: 06/19/20 18:18 Last Admin: 06/19/20 18:21 Dose: 4 mg Documented by: GIUSEPPE Vital Signs Vital signs: Vital Signs - 8 hr 06/19/20 17:05 06/19/20 17:08 06/19/20 17:30 Temperature 98.5 F Pulse Rate 80 74 66 Respiratory Rate 18 24 Blood Pressure Pulse Oximetry 95 94 93 06/19/20 17:31 06/19/20 17:58 06/19/20 18:00 Temperature Pulse Rate 71 69 70 Respiratory Rate 20 Blood Pressure 161/75 H 170/80 H 172/86 H Pulse Oximetry 93 94 95 06/19/20 18:30 Temperature Pulse Rate 66 Respiratory Rate Blood Pressure 153/72 H Pulse Oximetry 93 MDM - SOB/Dyspnea Lab Data Attestation: I reviewed the patient's lab results. Result diagrams: 06/19/20 17:10 06/19/20 17:10 Labs: Lab Results 06/19/20 06/19/20 06/19/20 Range/Units 17:10 17:10 17:49 WBC 10.1 (4.5-11.0) X10^3/uL RBC 4.87 (4.0-5.2) X10^6/uL Hgb 16.3 H (12.0-16.0) g/dL Hct 47.3 H (36-46) % MCV 97.0 (80-100) fL MCH 33.6 (26-34) PG MCHC 34.6 (30-36) % RDW 13.8 (11.6-14.8) % Plt Count 152 (150-400) X10^3/uL Neut % (Auto) 77.1 H (50-75) % Lymph % (Auto) 9.8 L (25-40) % [place] % (Auto) 9.0 (3-14) % Eos % (Auto) 3.8 (2-4) % Baso % (Auto) 0.3 (0-2) % Neut # (Auto) 7800 H (4403-1242) /uL Lymph # (Auto) 1000 L (4644-8641) /uL [place] # (Auto) 900 (0-900) /uL Eos # (Auto) 400 (0-450) /uL Baso # (Auto) 0 (0-100) /uL Sodium 137 (137-145) mmol/L Potassium 3.7 (3.4-5.1) mmol/L Chloride 101 (98-107) mmol/L Carbon Dioxide 30 (22-32) mmol/L BUN 18 H (7-17) mg/dL Creatinine 0.88 (0.52-1.04) mg/dL Estimated GFR > 60.0 (>60) mL/min BUN/Creatinine Ratio 20.5 (6-22) Glucose 133 H (80-110) mg/dL Lactate 1.0 (0.7-2.1) mmol/L Calcium 10.0 (8.4-10.2) mg/dL Total Bilirubin 0.6 (0.2-1.3) mg/dL AST 23 (14-36) IU/L ALT 28 (<35) IU/L Alkaline Phosphatase 108 (38-126) U/L Total Creatine Kinase (30-135) U/L CK-MB (CK-2) CK-MB (CK-2) Rel Index Troponin I (0.01-0.034) ng/mL NT-Pro-B Natriuret Pep (<450) pg/mL Total Protein 6.4 (6.3-8.2) g/dL Albumin 3.6 (3.5-5.0) g/dL Globulin 2.8 (1.7-4.1) g/dL Albumin/Globulin Ratio 1.3 (1.0-2.8) Procalcitonin (<0.5) ng/mL 06/19/20 06/19/20 Range/Units 17:49 17:49 WBC (4.5-11.0) X10^3/uL RBC (4.0-5.2) X10^6/uL Hgb (12.0-16.0) g/dL Hct (36-46) % MCV (80-100) fL MCH (26-34) PG MCHC (30-36) % RDW (11.6-14.8) % Plt Count (150-400) X10^3/uL Neut % (Auto) (50-75) % Lymph % (Auto) (25-40) % [place] % (Auto) (3-14) % Eos % (Auto) (2-4) % Baso % (Auto) (0-2) % Neut # (Auto) (4430-5553) /uL Lymph # (Auto) (7762-5711) /uL [place] # (Auto) (0-900) /uL Eos # (Auto) (0-450) /uL Baso # (Auto) (0-100) /uL Sodium (137-145) mmol/L Potassium (3.4-5.1) mmol/L Chloride (98-107) mmol/L Carbon Dioxide (22-32) mmol/L BUN (7-17) mg/dL Creatinine (0.52-1.04) mg/dL Estimated GFR (>60) mL/min BUN/Creatinine Ratio (6-22) Glucose (80-110) mg/dL Lactate (0.7-2.1) mmol/L Calcium (8.4-10.2) mg/dL Total Bilirubin (0.2-1.3) mg/dL AST (14-36) IU/L ALT (<35) IU/L Alkaline Phosphatase (38-126) U/L Total Creatine Kinase 34 (30-135) U/L CK-MB (CK-2) TNP CK-MB (CK-2) Rel Index TNP Troponin I < 0.012 (0.01-0.034) ng/mL NT-Pro-B Natriuret Pep 479 H (<450) pg/mL Total Protein (6.3-8.2) g/dL Albumin (3.5-5.0) g/dL Globulin (1.7-4.1) g/dL Albumin/Globulin Ratio (1.0-2.8) Procalcitonin < 0.05 (<0.5) ng/mL Imaging Data Chest x-ray: Radiologist's Impression: PROCEDURE: XR CHEST 2V INDICATIONS: shortness of breath TECHNIQUE: 2 views of the chest were acquired. COMPARISON: [facility], CR, XR CHEST 1V, 06/09/2020, 18:43. FINDINGS: Surgical changes and devices: None. Lungs and pleura: Lungs are clear. No pleural effusions or pneumothorax. Pleural scar is redemonstrated at the left costophrenic sulcus. Mediastinum: Mediastinal contours are normal. Heart size is enlarged, as before. Atheromatous calcifications are present at the thoracic aortic arch. Bones and chest wall: No suspicious bony abnormalities. Soft tissues appear unremarkable. IMPRESSION: No acute cardiopulmonary findings. Dictated by: Tricia Gastelum M.D. on 06/19/2020 at 16:58 Approved by: Tricia Gastelum M.D. on 06/19/2020 at 16:59 ECG Data Attestation: I personally reviewed and interpreted this ECG as follows: Prior ECG tracings: available for review Interpretation: Normal sinus rhythm rate 78 p.r. interval [address] changes or T-wave inversions MDM Narrative Medical decision making narrative: Failed outpatient treatment with Levaquin and steroids. She had some improvement with albuterol inhaler. She continues to have symptoms of significant sputum production. Patient accepted to [facility]. Discharge Plan Departure Prescriptions: No Action ezetimibe [Zetia] 10 mg tablet 10 mg PO DAILY RF: 0 Symbicort 160-4.5 mcg/actuation HFA aerosol inhaler 2 puff INHALATION BID RF: 0 furosemide 40 mg tablet 40 mg PO DAILY RF: 0 metoprolol succinate 50 mg capelina,ER 24hr dose pack 50 mg PO BID RF: 0 isosorbide mononitrate 30 mg tablet extended release 24 hr 30 mg PO BID RF: 0 atorvastatin 80 mg tablet 80 mg PO DAILY RF: 0 lorazepam 0.5 mg tablet 0.5 mg PO QD-BID PRN (Reason: Anxiety) RF: 0 aspirin 81 mg tablet,delayed release (DR/EC) 81 mg PO DAILY RF: 0 cetirizine 10 mg capsule 10 mg PO DAILY RF: 0 Lantus Solostar U-100 Insulin 100 unit/mL (3 mL) insulin pen 35 unit SUBCUT DAILY RF: 0 omeprazole 20 mg capsule,delayed release(DR/EC) 1 tab PO DAILY RF: 0 nitroglycerin 0.4 mg Tablet, Sublingual 0.4 mg SUBLINGUAL Q5-15M PRN (Reason: Chest Pain) RF: 0 levalbuterol tartrate 45 mcg/actuation HFA aerosol inhaler 1 puff inhalation PRN PRN (Reason: Dyspnea) RF: 0 Novolog Flexpen U-100 Insulin 100 unit/mL (3 mL) Insulin Pen 3 unit SUBCUT QPM RF: 0
[2020-06-19] MEDS: ALBUTEROL HFA PREPACK 1 BOX MISC (17:26)
[2020-06-19 17:36] LABS: Alanine Aminotransferase 28 IU/L (<35); Albumin 3.6 g/dL (3.5-5.0); Albumin Globulin Ratio 1.3 (1.0-2.8); Alkaline Phosphatase 108 U/L (38-126); Aspartate Aminotransferase 23 IU/L (14-36); BUN Creatinine Ratio 20.5 (6-22); Bilirubin Total 0.6 mg/dL (0.2-1.3); Blood Urea Nitrogen 18 mg/dL (7-17); Carbon Dioxide 30 mmol/L (22-32); Chloride 101 mmol/L (98-107); Estimated Glomerular Filt Rate > 60.0 mL/min (>60); Globulin 2.8 g/dL (1.7-4.1); Glucose 133 mg/dL (80-110); HEMOLYSIS < 15 (0-50); Potassium 3.7 mmol/L (3.4-5.1); Sodium 137 mmol/L (137-145); Total Protein 6.4 g/dL (6.3-8.2)
[2020-06-19] MEDS: methylPREDNISolone 125 MG/2 ML VIAL IV (17:44)
[2020-06-19 18:14] LABS: Creatine Kinase 34 U/L (30-135)
[2020-06-19] MEDS: ONDANSETRON 4 MG/2 ML INJ IV (18:21)
[2020-06-19 18:26] LABS: NT-proBNP (BNP-Adult 18+) 479 pg/mL (<450); Troponin I < 0.012 ng/mL (0.01-0.034)
[2020-06-19 18:31] LABS: Procalcitonin < 0.05 ng/mL (<0.5)
[2020-06-19] MEDS: CEFTRIAXONE 2 GM/50 ML FROZ.PIGGY IV (19:05)
[2020-06-19] MEDS: AZITHROMYCIN 500 MG in DEXTROSE 5% IN WATER 250 ML IV (19:32)
[2020-06-19] MEDS: METOCLOPRAMIDE 10 MG/2 ML INJ IV (19:47)
[2020-06-19 20:16] LABS: HCO3 ABG 31 mmol/L (22-26); PO2 ABG 62 mmHg (80-100); pH ABG 7.39 (7.35-7.45)
[2020-06-19 20:17] LABS: Fractionated Inspired Oxygen 21; Oxygen Saturation ABG 91 % (95-100); TCO2 ABG 33 mmol/L (21-31)
[2020-06-19 20:34] LABS: COVID19 -Nasal RAPID Negative (Negative)
--- NOTE | 2020-06-19 21:52 | PC.NURSE ---
2039 - Pt to room from ER. Able to stand pivot transfer to bed. Denies hx of falls. Pt with a large purple area to left thigh/buttock area. She has a similar area to left elbow. Pt states it's a pressure ulcer, it doesn't go away. Pt got into bed and positioned herself on her left side. Pt reports that she always rests on that side. Discussed skin integrity, pt declined to off-load area. She reports feeling SOB with some dizziness. She wears home O2, intermittently throughout the day, it depends. and always at night. She reports a smoking history that began when she was 5 years old, she smoked up to 4 packs per day and now currently smokes 2 packs per day. She declines desire to quit. Pt oriented to room and routine. Educated to safety and call light use. Call light in reach.
--- NOTE | 2020-06-19 22:18 | PM.HP.1 ---
History of Present Illness History of Present Illness Date Patient Seen: 06/19/20 Time Patient Seen: 21:00 Chief complaint: States Pnuemonia not getting better Narrative: Alina Swartz is a 74-year-old female on home O2 and also a smoker who does not intend to quit, who was treated 10 days ago for a left lower lobe pneumonia with an x-ray that was positive for left pleural effusion. At that time she was discharged from the emergency department on 5 day course of Levaquin and instructed to follow-up with her PCP. She saw her PCP who extended her course of Levaquin and she continued to have shortness of breath so she presented to the emergency department today for further evaluation. She has a large oxygen concentrator at home when has a portable one that has not been working when she needs to leave her home. She states that she has been arguing with [employer]na about obtaining one that will not run out of air over 45 minutes. She states that they are holding her to a 5 year contract with her current equipment. She denies fevers sweats or chills, she does have postnasal drip the causes a dry cough, she denies palpitations or chest pain, she did have some nausea after taking the Levaquin, she denies dysuria or abdominal pain, she does have right-sided shoulder pain that she is seeing her PCP for. After being informed that today's chest x-ray was normal, the patient was asking whether she will be able to go home in the morning. In the emergency department they started her on IV ceftriaxone and IV azithromycin and 1 dose of IV Solu-Medrol 125 mg. Repeat chest x-ray was negative for any similar findings than the previous x-ray. Patient is afebrile, blood pressure 133/69, heart rate 75, respiratory rate 16, oxygen saturation 97% on 3 L, she weighs 103 kg with a BMI of 34.5. WBC 10.1 was previously 14 on June 09, RBC 4.87, hemoglobin 16.3, hematocrit 47.3, platelet count of 152, ABG is normal with mild CO2 retention with a pCO2 of 52 and an ABG total of 33, both slightly elevated, sodium 137, potassium 3.7, chloride 101, bicarb 30, BUN 18, creatinine 0.8, GFR greater than 60, glucose 133, lactate normal at 1.0, liver enzymes are within normal limits, proBNP is 479, procalcitonin 0.05, COVID-19 is negative. Patient History Medical History COPD (chronic obstructive pulmonary disease) (Acute) Coronary artery disease (Chronic) Diabetes (Acute) Diabetes type 2, controlled (Acute) GERD (gastroesophageal reflux disease) (Chronic) Hyperlipidemia (Chronic) Skin lesion of back (Chronic) Tobacco dependency (Acute) Surgical History History of bilateral inguinal hernia repair (Acute) History of bowel resection (Acute) History of coronary artery bypass graft (Acute) Family & Social History Family History Mother Hypertension Father Heart disease Grandmother Diabetes mellitus Grandfather Cancer Social History: household members children Prior Living Arrangements House Safety & Behavioral: Feels Safe in Current Yes Environment Been Physically Hurt or No Threatened By a Person Suicidal Ideation Description None Tobacco & Substance use: Tobacco type cigarettes Smoking Status Current every day smoker Smoking packs per day 2 alcohol intake never Substance Use Type does not use Meds Home Medications and Allergies Home Medications Medication Instructions Recorded Confirmed Type aspirin 81 mg tablet,delayed 81 mg PO BEDTIME 02/14/19 06/19/20 History release atorvastatin 80 mg tablet 80 mg PO 219902/14/19 06/19/20 History budesonide-formoterol HFA 160 2 puff INHALATION BID 02/14/19 06/19/20 History mcg-4.5 mcg/actuation aerosol inhaler cetirizine 10 mg capsule 10 mg PO DAILY cap 02/14/19 06/19/20 History ezetimibe 10 mg tablet 10 mg PO 219902/14/19 06/19/20 History furosemide 40 mg tablet 40 mg PO DAILY 02/14/19 06/19/20 History insulin glargine 100 unit/mL (3 42 unit SUBCUT 219902/14/19 06/19/20 History mL) subcutaneous pen isosorbide mononitrate 30 mg 30 mg PO BID tab 02/14/19 06/19/20 History tablet,extended release 24 hr lorazepam 0.5 mg tablet 0.5 mg PO QD-BID PRN 02/14/19 06/19/20 History metoprolol succinate 50 mg capsule 50 mg PO BID each 02/14/19 06/19/20 History sprinkle, ext. release 24 hr insulin aspart U-100 [Novolog 3 unit SUBCUT 1500 05/22/19 06/19/20 History Flexpen U-100 Insulin] levalbuterol tartrate [Xopenex HFA] 2 puff INHALATION PRN PRN 05/22/19 06/19/20 History nitroglycerin 0.4 mg SUBLINGUAL Q5-15M PRN 05/22/19 06/19/20 History omeprazole 1 tab PO DAILY 05/22/19 06/19/20 History Allergies Allergy/AdvReac Type Severity Reaction Status Date / Time latex Allergy Unknown Rash Verified 06/19/20 17:05 Sulfa (Sulfonamide Allergy Unknown vomiting, Verified 06/19/20 17:05 Antibiotics) rash Review of Systems Review of Systems ROS: Yes All systems reviewed with the patient and are negative except as otherwise documented Exam Vital Signs (past 8 hours): - 06/19/20 17:05 06/19/20 17:08 06/19/20 17:30 Temperature 98.5 F Pulse Rate 80 74 66 Respiratory Rate 18 24 Blood Pressure Pulse Oximetry 95 94 93 06/19/20 17:31 06/19/20 17:58 06/19/20 18:00 Temperature Pulse Rate 71 69 70 Respiratory Rate 20 Blood Pressure 161/75 H 170/80 H 172/86 H Pulse Oximetry 93 94 95 06/19/20 18:30 06/19/20 19:00 06/19/20 19:01 Temperature Pulse Rate 66 74 68 Respiratory Rate 31 H 26 H Blood Pressure 153/72 H 161/70 H Pulse Oximetry 93 92 92 06/19/20 19:30 06/19/20 19:31 Temperature Pulse Rate 72 70 Respiratory Rate 24 24 Blood Pressure 186/66 H Pulse Oximetry 91 92 Oxygen Delivery Method Room Air Narrative Exam Narrative: Gen: Alert, oriented, ill appearing 74 y.o. female, mildly anxious HEENT: normocephalic, atraumatic, conjunctiva clear, sclera non-icteric, oral mucosa pink and moist Neck: supple, full ROM, no JVD, trachea is midline Resp: Lungs sounds are tight, non-labored breathing CV: RRR, no murmur or rubs Abd: soft, non-tender, normoactive BTs Skin: round nodular lesion 1 cm diameter X 3mm high with a pigmented center appears to be a sebecous cyst with a nevus, dry and intact Neuro: Alert and oriented X 4 w/no focal deficits. Speech clear and coherent. Extremities: moves all 4 extremities, is ambulatory, negative Elmer?s sign Psyche: normal mood and affect. Objective Labs Result Diagrams: 06/19/20 17:10 06/19/20 17:10 Labs: Laboratory Results - last 24 hr 06/19/20 06/19/20 06/19/20 17:10 17:10 17:49 WBC 10.1 RBC 4.87 Hgb 16.3 H Hct 47.3 H MCV 97.0 MCH 33.6 MCHC 34.6 RDW 13.8 Plt Count 152 Neut % (Auto) 77.1 H Lymph % (Auto) 9.8 L [place] % (Auto) 9.0 Eos % (Auto) 3.8 Baso % (Auto) 0.3 Neut # (Auto) 7800 H Lymph # (Auto) 1000 L [place] # (Auto) 900 Eos # (Auto) 400 Baso # (Auto) 0 ABG pH ABG pCO2 ABG pO2 ABG HCO3 ABG Total CO2 ABG O2 Saturation ABG Base Excess FiO2 Sodium 137 Potassium 3.7 Chloride 101 Carbon Dioxide 30 BUN 18 H Creatinine 0.88 Estimated GFR > 60.0 BUN/Creatinine Ratio 20.5 Glucose 133 H Lactate 1.0 Calcium 10.0 Total Bilirubin 0.6 AST 23 ALT 28 Alkaline Phosphatase 108 Total Creatine Kinase CK-MB (CK-2) CK-MB (CK-2) Rel Index Troponin I NT-Pro-B Natriuret Pep Total Protein 6.4 Albumin 3.6 Globulin 2.8 Albumin/Globulin Ratio 1.3 Procalcitonin COVID-19 PCR 06/19/20 06/19/20 06/19/20 17:49 17:49 19:26 WBC RBC Hgb Hct MCV MCH MCHC RDW Plt Count Neut % (Auto) Lymph % (Auto) [place] % (Auto) Eos % (Auto) Baso % (Auto) Neut # (Auto) Lymph # (Auto) [place] # (Auto) Eos # (Auto) Baso # (Auto) ABG pH ABG pCO2 ABG pO2 ABG HCO3 ABG Total CO2 ABG O2 Saturation ABG Base Excess FiO2 Sodium Potassium Chloride Carbon Dioxide BUN Creatinine Estimated GFR BUN/Creatinine Ratio Glucose Lactate Calcium Total Bilirubin AST ALT Alkaline Phosphatase Total Creatine Kinase 34 CK-MB (CK-2) TNP CK-MB (CK-2) Rel Index TNP Troponin I < 0.012 NT-Pro-B Natriuret Pep 479 H Total Protein Albumin Globulin Albumin/Globulin Ratio Procalcitonin < 0.05 COVID-19 PCR Negative 06/19/20 19:48 WBC RBC Hgb Hct MCV MCH MCHC RDW Plt Count Neut % (Auto) Lymph % (Auto) [place] % (Auto) Eos % (Auto) Baso % (Auto) Neut # (Auto) Lymph # (Auto) [place] # (Auto) Eos # (Auto) Baso # (Auto) ABG pH 7.39 ABG pCO2 52.0 H ABG pO2 62 L ABG HCO3 31 H ABG Total CO2 33 H ABG O2 Saturation 91 L ABG Base Excess 6.0 H FiO2 21 Sodium Potassium Chloride Carbon Dioxide BUN Creatinine Estimated GFR BUN/Creatinine Ratio Glucose Lactate Calcium Total Bilirubin AST ALT Alkaline Phosphatase Total Creatine Kinase CK-MB (CK-2) CK-MB (CK-2) Rel Index Troponin I NT-Pro-B Natriuret Pep Total Protein Albumin Globulin Albumin/Globulin Ratio Procalcitonin COVID-19 PCR Assessment & Plan Assessment & Plan narrative: Angie Swartz is a 74-year-old smoker and home oxygen dependent female with a post infectious COPD exacerbation who will be placed into observation for further evaluation and treatment. Post infectious COPD exacerbation, acute, present on admission -she will receive DuoNebs and albuterol nebulizers as needed -will continue oral azithromycin for inflammatory benefit -RT consult requested Coronary artery disease, chronic -continue home dose of isosorbide mononitrate ER 30 mg p.o. b.i.d. -continue home dose of metoprolol 50 mg p.o. b.i.d. -Continue home dose of aspirin 81 mg p.o. daily Diabetes type 2 with a stated hemoglobin A1c of 6.8 -normally takes Lantus 42 units at bedtime, however there is a notation in the chart that she has not been taking this since April, the patient does state she takes it. I have given an initial 10 units and if for subsequent glucose indicates a very high glucose level will give her the balance and resume that home dose in the morning Tobacco dependence -Patient was counseled on continued COPD exacerbations and worsening trajectory of her disease burden, she is aware and does not want to quit smoking. Hyperlipidemia, chronic -continue home dose of atorvastatin 80 mg p.o. daily -Continue Zetia 10 mg p.o. Abnormal skin lesion, present on admission -patient wanted us to notify her PCP to address this Consults: none Patient is observation status as her stay is not likely to exceed 2 midnights. FEN: IV saline lock, carb control diet, BMP and magnesium in the am. VTE prophylaxis: Enoxaparin 40 mg subQ daily Dispo: probable discharge to home Code Status: DNR/DNI as discussed with patient COVID-19 COVID-19 status: Negative Result date/Date tested (Pos, Neg/Pending): 06/19/20 Quality VTE Deep Vein Thrombosis/Pulmonary Embolism Present on Admission: No
[2020-06-19] MEDS: INSULIN ASPART 100 UNIT/ML INSULN PEN SUBCUT (22:58)
[2020-06-19] MEDS: ISOSORBIDE MONONITRATE ER 30 MG TABLET PO (23:00)
[2020-06-20] VITALS (7 sets, daily range): BP systolic 114–153; BP diastolic 59–72; PULSE 65–87; RESP 12–20; TEMP 36.1–36.3; O2SAT 92–97
[2020-06-20] MEDS: INSULIN GLARGINE 100 UNIT/ML 3ML PEN 10 UNIT SUBCUT (01:00)
[2020-06-20] MEDS: METOPROLOL ER 50 MG TABLET PO ×2 (01:01→08:13)
[2020-06-20] MEDS: ASPIRIN EC 81 MG TABLET PO (01:02)
[2020-06-20] MEDS: ATORVASTATIN 20 MG TABLET 80 MG PO (01:02)
--- NOTE | 2020-06-20 04:51 | PC.NURSE ---
Pt rested well all shift. No c/o of SOB or BYRD or dizziness. Pt continues to exclusively rest on her left side despite educating her on the importance of moving her position. Pt states that areas on her back that look like pressure injury are in fact old scars from a lobectomy.
[2020-06-20 05:42] LABS: Add Manual Diff / Slide Review NO; Basophils Absolute Auto 0 /uL (0-100); Basophils Percent Auto 0.5 % (0-2); Eosinophils Absolute Auto 0 /uL (0-450); Hemoglobin 15.2 g/dL (12.0-16.0); Lymphocytes Absolute Auto 600 /uL (1100-4500); Lymphocytes Percent Auto 7.1 % (25-40); Mean Corpuscular HGB Conc 33.6 % (30-36); Mean Corpuscular Volume 98.2 fL (80-100); Monocytes Absolute Auto 200 /uL (0-900); Monocytes Percent Auto 2.3 % (3-14); Neutrophils Absolute Auto 7900 /uL (1500-7000); Neutrophils Percent Auto 90.1 % (50-75); Platelet Count 136 X10^3/uL (150-400); Red Blood Cell Count 4.59 X10^6/uL (4.0-5.2); Red Cell Distribution Width 13.8 % (11.6-14.8); White Blood Cell Count 8.8 X10^3/uL (4.5-11.0)
[2020-06-20 05:52] LABS: Blood Urea Nitrogen 20 mg/dL (7-17); Calcium 10.1 mg/dL (8.4-10.2); Carbon Dioxide 31 mmol/L (22-32); Chloride 101 mmol/L (98-107); Estimated Glomerular Filt Rate > 60.0 mL/min (>60); Glucose 192 mg/dL (80-110); HEMOLYSIS < 15 (0-50); Potassium 4.1 mmol/L (3.4-5.1); Sodium 135 mmol/L (137-145)
[2020-06-20] MEDS: PANTOPRAZOLE 20 MG TABLET PO (05:54)
[2020-06-20] MEDS: ALBUTEROL/IPRATROPIUM 3 ML AMPUL INH ×3 (06:01→12:54)
[2020-06-20] MEDS: INSULIN ASPART 100 UNIT/ML INSULN PEN SUBCUT ×2 (08:12→12:20)
[2020-06-20] MEDS: ISOSORBIDE MONONITRATE ER 30 MG TABLET PO (08:13)
[2020-06-20] MEDS: predniSONE 20 MG TABLET 40 MG PO (08:13)
[2020-06-20] MEDS: ENOXAPARIN 40 MG/0.4 ML SYRINGE SUBCUT (08:15)
[2020-06-20] MEDS: AZITHROMYCIN 250 MG TABLET 500 MG PO (08:25)
--- NOTE | 2020-06-20 13:48 | CM.IDA ---
Initial DCP Assessment Note Patient is a 74 yo female, resident of [place]. Patient presents w/SOB-COPD exacerbation, home O2 user and current everyday smoker. PCP: Dr Maura Marcelo: THOMAS/Damion lozano [facility] Met w/patient during morning multidisciplinary rounds, introduced role. Patient lives at home alone, mostly indp at baseline, and is eager to return home today. Returned this afternoon to complete more thorough of an assessment and patient was getting dressed to leave, stated a friend was going to pick her up. Patient denied needs from this RESIDENT MEDICAL OFFICER. Dr Sierra agrees, no barriers to return home, outpatient f/u recommended. ADEOLA Patterson
--- NOTE | 2020-06-20 14:38 | PC.NURSE ---
Day shift: Pt taken to car driven by family member. Taken by AMAIRANI Zimmerman in . Paperwork is signed and all questions answered. MD olivier called into her pharmacy per MD by this narrative writer. Scripts should be ready for pickup by the time she gets there. She has all her personal belongings.
--- NOTE | 2020-06-21 11:29 | P.DS_ITS ---
History of Present Illness History of Present Illness Date Patient Seen: 06/20/20 Chief complaint: States Pnuemonia not getting better Narrative: Alina Swartz is a 74-year-old female on home O2 and also a smoker who does not intend to quit, who was treated 10 days ago for a left lower lobe pneumonia with an x-ray that was positive for left pleural effusion. At that time she was discharged from the emergency department on 5 day course of Levaquin and instructed to follow-up with her PCP. She saw her PCP who extended her course of Levaquin and she continued to have shortness of breath so she presented to the emergency department today for further evaluation. She has a large oxygen concentrator at home when has a portable one that has not been working when she needs to leave her home. She states that she has been arguing with [facility] [place] about obtaining one that will not run out of air over 45 minutes. She states that they are holding her to a 5 year contract with her current equipment. She denies fevers sweats or chills, she does have postnasal drip the causes a dry cough, she denies palpitations or chest pain, she did have some nausea after taking the Levaquin, she denies dysuria or abdominal pain, she does have right-sided shoulder pain that she is seeing her PCP for. After being informed that today's chest x-ray was normal, the patient was asking whether she will be able to go home in the morning. In the emergency department they started her on IV ceftriaxone and IV azithromycin and 1 dose of IV Solu-Medrol 125 mg. Repeat chest x-ray was negative for any similar findings than the previous x-ray. Patient is afebrile, blood pressure 133/69, heart rate 75, respiratory rate 16, oxygen saturation 97% on 3 L, she weighs 103 kg with a BMI of 34.5. WBC 10.1 was previously 14 on June 09, RBC 4.87, hemoglobin 16.3, hematocrit 47.3, platelet count of 152, AB G is normal with mild CO2 retention with a pCO2 of 52 and an ABG total of 33, both slightly elevated, sodium 137, potassium 3.7, chloride 101, bicarb 30, BUN 18, creatinine 0.8, GFR greater than 60, glucose 133, lactate normal at 1.0, liver enzymes are within normal limits, proBNP is 479, procalcitonin 0.05, COVID-19 is negative. Discharge Providers Provider Date of admission: 06/19/20 19:46 Discharge Date: 06/20/20 Primary care physician: LAURE Tay Discharge provider: Alysha Sierra MD Summary Hospital Course Discharge Diagnosis: 1. Acute on Chronic Respiratory Failure 2. COPD 3. Acute Bronchitis 4. Tobacco Dependence 5. Type 2 Diabetes Mellitus 6 GERD Hospital Course: The patient was admitted to the hospital and placed on Ceftriaxone/Azithryomycin. She received 125 mg IV solumedrol in the ED. The following day her shortness of breath had improved, cough had improved, and she felt overall better. Her Chest Xray was clear. The patient was counselled about smoking cessation which she adamantly refused to quit. She had decreased breath sounds but overall was felt to be improved and deemed appropriate for discharge home. Exam Vital Signs (past 8 hours): Oxygen Delivery Method Room Air Oxygen Flow Rate 0 Narrative Exam Narrative: Pleasant female in no acute distress Lungs: decreased breath sounds bilaterally CV: RRR nl S1S2 Abd: soft/ non tender/ non distended Ext: no edema Objective Labs Result Diagrams: 06/20/20 05:10 06/20/20 05:10 Discharge Assessment & Plan Assessment and Plan Assessment: 1. Acute on Chronic Respiratory Failure 2. COPD 3. Acute bronchitis 4. Type 2 Diabetes mellitus 5. GERD 6. Hyperlipidemia Plan of Treatment: continue Zpack for 5 days Continue prednisone for 5 days Advised to quit smoking Follow up with PCP next week Discharge Plan Discharge Plan Patient Disposition: Home Discharge orders & Medications Prescriptions: New prednisone 20 mg Tablet 40 mg PO DAILY Qty: 5 RF: 0 azithromycin 250 mg tablet 250 mg PO DAILY 5 Days RF: 0 Continued ezetimibe [Zetia] 10 mg tablet 10 mg PO 2199 RF: 0 Symbicort 160-4.5 mcg/actuation HFA aerosol inhaler 2 puff INHALATION BID RF: 0 furosemide 40 mg tablet 40 mg PO DAILY RF: 0 metoprolol succinate 50 mg cap,sprinkle,ER 24hr dose pack 50 mg PO BID RF: 0 isosorbide mononitrate 30 mg tablet extended release 24 hr 30 mg PO BID RF: 0 atorvastatin 80 mg tablet 80 mg PO 2199 RF: 0 lorazepam 0.5 mg tablet 0.5 mg PO QD-BID PRN (Reason: Anxiety) RF: 0 aspirin 81 mg tablet,delayed release (DR/EC) 81 mg PO BEDTIME RF: 0 cetirizine 10 mg capsule 10 mg PO DAILY RF: 0 Lantus Solostar U-100 Insulin 100 unit/mL (3 mL) insulin pen 42 unit SUBCUT 2200 RF: 0 omeprazole 20 mg capsule,delayed release(DR/EC) 1 tab PO DAILY RF: 0 nitroglycerin 0.4 mg Tablet, Sublingual 0.4 mg SUBLINGUAL Q5-15M PRN (Reason: Chest Pain) RF: 0 levalbuterol tartrate [Xopenex HFA] 45 mcg/actuation HFA aerosol inhaler 2 puff inhalation PRN PRN (Reason: Dyspnea) RF: 0 insulin aspart U-100 [Novolog Flexpen U-100 Insulin] 100 unit/mL (3 mL) Insulin Pen 3 unit SUBCUT 1500 RF: 0 Follow up/Referrals: Deb Martin ARNP [Primary Care Provider] - Discharge Health Status Multidrug resistant organism: No MDRO Diet/Activity/Treatments Diet: Low-fat and Low-sodium Activity: as tolerated Skin/Wound/Dressing Care Report to your healthcare provider any signs of infection, such as:: chills, fever Visit Report/Discharge Packet Instructions: Chronic Obstructive Pulmonary Disease, DI for Chronic Obstructive Pulmonary Disease, DI for Pneumonia -- Adult, How to Prevent Falls, Prednisone, Azithromycin Visit Report Forms: Patient Portal/API, Stroke Signs & Symptoms Discharge Data Primary Care Provider: Deb Martin Attending Provider: Candis Blair Admit Date/Time: 06/19/20 19:46 Discharges patient from system. Discharge Date/Time: 06/20/20 14:40 Quality VTE Deep Vein Thrombosis/Pulmonary Embolism Present on Admission: No
== END 2020-06-20 14:40 | disposition home or self-care (01) ==
LOC: ED 19:01 → AC 19:57
PROVIDERS: Admitting Provider Nurse Practitioner Family; Emergency Provider Emergency Medicine; Family Provider Nurse Practitioner Gerontology; PCP Nurse Practitioner Gerontology; Referring Provider Emergency Medicine; Visit Provider Nurse Practitioner Family
DX: J96.20 Acute and chronic respiratory failure, unspecified whether with hypoxia or hypercapnia (principal); J44.0 Chronic obstructive pulmonary disease with (acute) lower respiratory infection; J20.9 Acute bronchitis, unspecified; F17.210 Nicotine dependence, cigarettes, uncomplicated; E11.9 Type 2 diabetes mellitus without complications; K21.9 Gastro-esophageal reflux disease without esophagitis; I25.10 Atherosclerotic heart disease of native coronary artery without angina pectoris; E78.5 Hyperlipidemia, unspecified; Z79.4 Long term (current) use of insulin; Z99.81 Dependence on supplemental oxygen; Z11.59 Encounter for screening for other viral diseases
CPT/HCPCS: 36415; 36600; 71046; 80048; 80053; 82550; 82805; 82962; 83605; 83735; 83880; 84145; 84484; 85025; 87635; 93005; 94640; 94760; 94762; 96365; 96367; 96372; 96375; 99284; G0378; J0696; J1650; J2405; J2765; J2930

== ENCOUNTER 2024-09-19 17:21 | Inpatient (IN) | payer MEDICARE, OTHER, SELFPAY ==
[2020-06-19 20:57] VITALS: BMI 34.5
[2024-09-19] VITALS (24 sets, daily range): BP systolic 136–199; BP diastolic 74–91; PULSE 78–90; RESP 18–46; TEMP 36.9; O2SAT 91–96; BMI 29.2; BMI 29.4
--- NOTE | 2024-09-19 17:48 | DI.RAD.S_ITS ---
PROCEDURE: XR CHEST 1V INDICATIONS: Shortness of breath TECHNIQUE: One view of the chest was acquired. COMPARISON: [facility], [place], XR CHEST 2V, 06/19/2020, 17:39. [facility], CR, XR CHEST 1V, 06/09/2020, 18:43. FINDINGS: Surgical changes and devices: None. Lungs and pleura: Lungs are clear. No pleural effusions or pneumothorax. Mediastinum: Mediastinal contours appear normal. Heart size is enlarged. Bones and chest wall: No suspicious bony lesions. Overlying soft tissues appear unremarkable. IMPRESSION: Patient is angulated, limiting evaluation. Cardiomegaly. No definite focal pulmonary consolidation. Dictated by: Aman Nunez M.D. on 09/19/2024 at 18:08 Approved by: Aman Nunez M.D. on 09/19/2024 at 18:08
[2024-09-19 17:56] LABS: Add Manual Diff / Slide Review NO; Basophils Absolute Auto 0 /uL (0-100); Basophils Percent Auto 0.5 % (0-2); Eosinophils Absolute Auto 100 /uL (0-450); Eosinophils Percent Auto 0.9 % (2-4); Hematocrit 48.1 % (36-46); Hemoglobin 16.2 g/dL (12.0-16.0); Lymphocytes Absolute Auto 700 /uL (1100-4500); Lymphocytes Percent Auto 6.5 % (25-40); Mean Corpuscular HGB Conc 33.6 % (30-36); Mean Corpuscular Volume 101.3 fL (80-100); Monocytes Absolute Auto 700 /uL (0-900); Monocytes Percent Auto 6.5 % (3-14); Neutrophils Absolute Auto 8900 /uL (1500-7000); Neutrophils Percent Auto 85.6 % (50-75); Platelet Count 151 X10^3/uL (150-400); Red Blood Cell Count 4.75 X10^6/uL (4.0-5.2); Red Cell Distribution Width 13.5 % (11.6-14.8); White Blood Cell Count 10.4 X10^3/uL (4.5-11.0)
[2024-09-19 18:01] LABS: Alanine Aminotransferase 24 IU/L (<35); Albumin 3.8 g/dL (3.5-5.0); Albumin Globulin Ratio 1.3 (1.0-2.8); Alkaline Phosphatase 118 U/L (38-126); Aspartate Aminotransferase 27 IU/L (14-36); BUN Creatinine Ratio 20.5 (6-22); Bilirubin Total 0.4 mg/dL (0.2-1.3); Blood Urea Nitrogen 24 mg/dL (7-17); Calcium 11.2 mg/dL (8.4-10.2); Carbon Dioxide 35 mmol/L (22-32); Chloride 102 mmol/L (98-107); Estimated Glomerular Filt Rate 47 mL/min (>60); Glucose 167 mg/dL (80-110); HEMOLYSIS < 15 (0-50); Lactate (Lactic Acid) 1.1 mmol/L (0.7-2.1); Sodium 140 mmol/L (137-145); Total Protein 6.8 g/dL (6.3-8.2)
[2024-09-19 18:05] LABS: Prothrombin Time 10.8 SECONDS (9.4-12.5)
[2024-09-19] MEDS: ALBUTEROL/IPRATROPIUM 3 ML AMPUL INH (18:09)
[2024-09-19 18:13] LABS: NT-proBNP (BNP-Adult 18+) 1720 pg/mL (<450); Troponin I < 0.012 ng/mL (0.01-0.034)
--- NOTE | 2024-09-19 18:44 | EKG_ITS ---
[facility] [address] [place] [address] Test Date: 2024-09-19 Pat Name: Angie Swartz Department: [facility] Room: Gender: Female Retail Account Executive: SHANTEL : 1945 Requested By: Order Number: [id number] Reading MD: John Pat Measurements Intervals [place] Rate: 87 P: 93 AR: 130 QRS: 77 QRSD: 76 T: 102 QT: 346 QTc: 416 Interpretive Statements Sinus rhythm with occasional premature ventricular complexes Minimal voltage criteria for LVH, may be normal variant ( Sokolow-Mathew ) Nonspecific ST and T wave abnormality Electronically Signed On 09-20-2024 17:32:22 PST by John Pat
--- NOTE | 2024-09-19 18:53 | ED.GENADULT ---
HPI - General Adult General Chief complaint: Shortness of Breath/Dyspnea Stated complaint: SOB Time Seen by Provider: 09/19/24 18:00 Source: patient and EMS Mode of arrival: EMS History of Present Illness HPI narrative: patient was an 79-year-old female. Is a smoker. Has a history of COPD. Is on oxygen at 3 L at baseline. Has had progressive worsening shortness of breath with exertion and a productive cough over the past several weeks. Was seen at an outside walk-in clinic at the end of last week. Had a chest x-ray. Was told that she had a nodule on her lung and needed a follow-up CT scan. She was also prescribed Amoxicillin. She has been taking the amoxicillin. She states her symptoms are not improving. She was a productive cough. No fevers. Short of breath when she was sitting but very short of breath when she was up moving around. Decreased exercise tolerance from her baseline. No lower extremity swelling. No chest pain. No vomiting. Related Data Home Medications Medication Instructions Recorded Confirmed aspirin 81 mg tablet,delayed 81 mg PO BEDTIME 02/14/19 06/19/20 release atorvastatin 80 mg tablet 80 mg PO 219902/14/19 06/19/20 budesonide-formoterol HFA 160 2 puff inhalation BID 02/14/19 06/19/20 mcg-4.5 mcg/actuation aerosol inhaler (Symbicort) cetirizine 10 mg capsule 10 mg PO DAILY 02/14/19 06/19/20 ezetimibe 10 mg tablet (Zetia) 10 mg PO 0 02/14/19 06/19/20 furosemide 40 mg tablet 40 mg PO DAILY 02/14/19 06/19/20 insulin glargine 100 unit/mL (3 42 unit SUBCUT 219902/14/19 06/19/20 mL) subcutaneous pen (Lantus Solostar U-100 Insulin) isosorbide mononitrate 30 mg 30 mg PO BID 02/14/19 06/19/20 tablet,extended release 24 hr lorazepam 0.5 mg tablet 0.5 mg PO QD-BID PRN Anxiety 02/14/19 06/19/20 metoprolol succinate 50 mg capsule 50 mg PO BID 02/14/19 06/19/20 sprinkle, ext. release 24 hr insulin aspart U-100 100 unit/mL 3 unit SUBCUT 1500 05/22/19 06/19/20 (3 mL) subcutaneous pen (Novolog FlexPen U-100 Insulin aspart) levalbuterol tartrate 45 2 puff inhalation PRN PRN Dyspnea 05/22/19 06/19/20 mcg/actuation aerosol inhaler (Xopenex HFA) nitroglycerin 0.4 mg sublingual 0.4 mg sublingual Q5-15M PRN Chest 05/22/19 06/19/20 tablet Pain omeprazole 20 mg capsule,delayed 1 tab PO DAILY 05/22/19 06/19/20 release Previous Rx's Medication Instructions Recorded prednisone 20 mg tablet 40 mg (2 x 20 mg) PO DAILY #5 tabs 06/20/20 Allergies Allergy/AdvReac Type Severity Reaction Status Date / Time latex Allergy Unknown Rash Verified 06/19/20 17:05 Sulfa (Sulfonamide Allergy Unknown vomiting, Verified 06/19/20 17:05 Antibiotics) rash Review of Systems Review of Systems ROS Unobtainable: All systems reviewed & are unremarkable except as noted in HPI and below Patient History Medical History GERD (gastroesophageal reflux disease) Skin lesion of back Hyperlipidemia Coronary artery disease Tobacco dependency Diabetes type 2, controlled Diabetes COPD (chronic obstructive pulmonary disease) Surgical History History of bilateral inguinal hernia repair History of bowel resection History of coronary artery bypass graft Family History Mother Hypertension Father Heart disease Grandmother Diabetes mellitus Grandfather Cancer Social History household members: children Smoking Status: Current every day smoker alcohol intake: never Smoking Status: Current every day smoker Substance Use Type: does not use Exam Initial Vital Signs Initial Vital Signs: Vital Signs Temperature 98.4 F 09/19/24 17:25 Pulse Rate 90 09/19/24 17:25 Respiratory Rate 30 H 09/19/24 17:25 Blood Pressure 199/91 H 09/19/24 17:25 Pulse Oximetry 91 09/19/24 17:25 Oxygen Delivery Method Room Air 09/19/24 17:25 Const General: cooperative and No ill appearing HENTX Head: normal to inspection and normocephalic Resp Effort & Inspection: cough, labored, no nasal flaring, pursed lip breathing, no retractions and tachypneic Auscultation: rhonchi and wheezes Cardio Rate: regular rate Rhythm: regular rhythm GI Inspection: normal to inspection and non-distended Skin General: no rashes or lesions noted Neuro General: patient alert, patient awake, patient oriented x3 and moves all extremities Extrem General: normal to inspection Course Orders Ordered: ED Orders 09/19/24 17:32 Complete Blood Count AUTO DIFF Stat Comprehensive Metabolic Panel Stat Lactate (Lactic Acid) Stat NT-proBNP (BNP-Adult 18+) Stat Prothrombin Time INR Stat Troponin I Stat 09/19/24 17:48 XR chest 1V Stat EKG-12 Lead Stat Measure peak expiratory flow ONCE RT Consult Eval and Treat NOW 09/19/24 18:30 Respiratory Panel (Film Array) Stat 09/19/24 18:34 Sputum Culture Stat 09/19/24 18:53 CT angio chest PE protocol Stat Levofloxacin (Levaquin) 500 mg in 100 mls @ 100 mls/hr IV NOW ONE Stop: 09/19/24 21:32 Last Admin: 09/19/24 20:48 Dose: 100 mls/hr Documented By: ROSAMARIA Discontinued Medications Albuterol/Ipratropium (Albuterol/Ipratropium 3 Ml Ampul) 3 ml INH NOW ONE Stop: 09/19/24 18:01 Last Admin: 09/19/24 18:09 Dose: 3 ml Documented By: DS Furosemide (Furosemide 40 Mg/4 Ml Vial) 40 mg IV NOW ONE Stop: 09/19/24 20:48 Last Admin: 09/19/24 21:17 Dose: 40 mg Documented By: ROSAMARIA Lorazepam (Lorazepam 0.5 Mg Tablet) 0.5 mg PO NOW ONE Stop: 09/19/24 18:54 Last Admin: 09/19/24 19:09 Dose: 0.5 mg Documented By: MARIAN Methylprednisolone (Methylprednisolone 125 Mg/2 Ml Vial) 125 mg IV NOW ONE Stop: 09/19/24 20:32 Last Admin: 09/19/24 20:47 Dose: 125 mg Documented By: ROSAMARIA Vital Signs Vital signs: Vital Signs - 8 hr 09/19/24 17:25 09/19/24 17:30 09/19/24 17:31 Temperature 98.4 F Pulse Rate 90 88 Respiratory Rate 30 H Blood Pressure 199/91 H Pulse Oximetry 91 94 93 Oxygen Delivery Method Room Air Oxygen Flow Rate 09/19/24 17:31 09/19/24 18:00 09/19/24 18:10 Temperature Pulse Rate 86 86 Respiratory Rate 18 33 H Blood Pressure 199/91 H Pulse Oximetry 96 96 Oxygen Delivery Method Nasal Cannula Oxygen Flow Rate 3 09/19/24 18:12 09/19/24 18:12 09/19/24 18:30 Temperature Pulse Rate 84 86 Respiratory Rate 18 32 H Blood Pressure 171/82 H Pulse Oximetry 96 96 Oxygen Delivery Method Oxygen Flow Rate 09/19/24 18:31 09/19/24 18:31 09/19/24 19:00 Temperature Pulse Rate 85 85 Respiratory Rate 39 H 18 Blood Pressure 183/86 H Pulse Oximetry 96 96 Oxygen Delivery Method Oxygen Flow Rate 09/19/24 19:01 09/19/24 19:01 09/19/24 19:30 Temperature Pulse Rate 84 85 Respiratory Rate 20 18 Blood Pressure 168/74 H Pulse Oximetry 96 91 Oxygen Delivery Method Oxygen Flow Rate Medical Decision Making Lab Data Lab results reviewed: Yes I reviewed the patient's lab results. 09/19/24 17:32 09/19/24 17:32 Labs: Lab Results 09/19/24 09/19/24 Range/Units 17:32 18:30 WBC 10.4 (4.5-11.0) X10^3/uL RBC 4.75 (4.0-5.2) X10^6/uL Hgb 16.2 H (12.0-16.0) g/dL Hct 48.1 H (36-46) % MCV 101.3 H (80-100) fL MCH 34.0 (26-34) PG MCHC 33.6 (30-36) % RDW 13.5 (11.6-14.8) % Plt Count 151 (150-400) X10^3/uL Neut % (Auto) 85.6 H (50-75) % Lymph % (Auto) 6.5 L (25-40) % [place] % (Auto) 6.5 (3-14) % Eos % (Auto) 0.9 L (2-4) % Baso % (Auto) 0.5 (0-2) % Neut # (Auto) 8900 H (5215-7381) /uL Lymph # (Auto) 700 L (0899-8333) /uL [place] # (Auto) 700 (0-900) /uL Eos # (Auto) 100 (0-450) /uL Baso # (Auto) 0 (0-100) /uL PT 10.8 (9.4-12.5) SECONDS INR 1.0 (0.9-1.3) Sodium 140 (137-145) mmol/L Potassium 4.0 (3.4-5.1) mmol/L Chloride 102 (98-107) mmol/L Carbon Dioxide 35 H (22-32) mmol/L BUN 24 H (7-17) mg/dL Creatinine 1.17 H (0.52-1.04) mg/dL Estimated GFR 47 L (>60) mL/min BUN/Creatinine Ratio 20.5 (6-22) Glucose 167 H (80-110) mg/dL Lactate 1.1 (0.7-2.1) mmol/L Calcium 11.2 H (8.4-10.2) mg/dL Total Bilirubin 0.4 (0.2-1.3) mg/dL AST 27 (14-36) IU/L ALT 24 (<35) IU/L Alkaline Phosphatase 118 (38-126) U/L Troponin I < 0.012 (0.01-0.034) ng/mL NT-Pro-B Natriuret Pep 1720 H (<450) pg/mL Total Protein 6.8 (6.3-8.2) g/dL Albumin 3.8 (3.5-5.0) g/dL Globulin 3.0 (1.7-4.1) g/dL Albumin/Globulin Ratio 1.3 (1.0-2.8) Chlamy pneumoniae PCR Not detected (Not Detect) Adenovirus (PCR) Not detected (Not Detect) B. pertussis DNA (PCR) Not detected (Not Detect) B.parapertussis DNA PCR Not detected (Not Detecte) Coronavirus OC43 (PCR) Not detected (Not Detect) Coronavirus HKU1 (PCR) Not detected (Not Detect) Coronavirus 229E (PCR) Not detected (Not Detect) SARS-CoV-2 (PCR) Not detected (Not Detecte) Coronavirus NL63 (PCR) Not detected (Not Detect) Human Metapneumovir PCR Not detected (Not Detect) Influenza Type A (PCR) Not detected (Not Detect) Influenza Type B (PCR) Not detected (Not Detect) M. pneumoniae (PCR) Not detected (Not Detect) Parainfluenza 1 (PCR) Not detected (Not Detect) Parainfluenza 2 (PCR) Not detected (Not Detect) Parainfluenza 3 (PCR) Not detected (Not Detect) Parainfluenza 4 (PCR) Not detected (Not Detect) RSV (PCR) Not detected (Not Detect) Entero/Rhino (PCR) Not detected (Not Detect) Imaging Data Chest x-ray: Radiologist's Impression: PROCEDURE: XR CHEST 1V INDICATIONS: Shortness of breath TECHNIQUE: One view of the chest was acquired. COMPARISON: [facility], , XR CHEST 2V, 06/19/2020, 17:39. [facility], XR CHEST 1V, 06/09/2020, 18:43. FINDINGS: Surgical changes and devices: None. Lungs and pleura: Lungs are clear. No pleural effusions or pneumothorax. Mediastinum: Mediastinal contours appear normal. Heart size is enlarged. Bones and chest wall: No suspicious bony lesions. Overlying soft tissues appear unremarkable. IMPRESSION: Patient is angulated, limiting evaluation. Cardiomegaly. No definite focal pulmonary consolidation. CT scan - chest: Radiologist's Impression: ROCEDURE: CT ANGIO CHEST PE PROTOCOL INDICATIONS: eval for PE TECHNIQUE: After the administration of intravenous contrast, 2 mm thick sections acquired from the pulmonary apices to the posterior costophrenic angles. 3-dimensional maximum intensity projection (MIP) coronal and sagittal reformats were then acquired through the thorax. For radiation dose reduction, the following was used: automated exposure control, adjustment of mA and/or kV according to patient size. COMPARISON: [facility], , CT THORAX WITH CONTRAST, 12/21/2018, 12:01. [facility], XR CHEST 1V, 09/19/2024, 17:51. FINDINGS: Image quality: Diagnostic Lungs and pleura: There are emphysematous changes. Scattered scarring and atelectasis, especially with pleural thickening along the left lower lobe, with possible round atelectasis measuring up to 1.5 cm. No drainable pleural effusions. Mediastinum, heart, and esophagus: No acute pulmonary embolism. Coronary and annular cardiac calcifications. No pathologic lymph nodes by size criteria. There are atherosclerotic calcifications. There is a slight outpouching at the left ventricle apex. Chest wall and thyroid: Unremarkable. Upper abdomen: Partially visualized bilateral adrenal nodules again seen, which may be slightly enlarged from prior imaging. This measures up to 2.6 cm on the right and 1.7 cm on the left. Partially visualized aortic stent graft. Bones: There are degenerative changes. Sternal deformity likely chronic IMPRESSION: No acute pulmonary embolism. No dense airspace consolidation or pleural effusions. A pulmonary nodular region at the left costophrenic angle with adjacent atelectasis is seen, probably round atelectasis, consider 3 month follow-up to ensure stability. This measures up to 1.5 cm. Partially visualized adrenal nodules, probably larger than prior, consider dedicated adrenal protocol follow-up non urgently. Partially seen abdominal aortic stent graft. 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 ECG Data Attestation: I personally reviewed and interpreted this ECG as follows: Interpretation: Sinus rhythm Ventricular rate of 87 Occasional PVC Normal QRS LVH Nonspecific ST T wave changes Artifact noted V4 V5 V6 MDM Narrative Medical decision making narrative: Patient was tachypneic at baseline on her baseline 3 L of oxygen by nasal cannula however with ambulation she became hypoxic and more tachypneic and lightheaded. It did take her a while to recover once lying back in bed. Her chest x-ray today does not have an indication of pneumonia. CT scan of the chest does not show any focal consolidation. There was a nodular region in the lung kimbrough which requires follow-up in 3-6 months. I did inform the patient of this. Also informed her of the abnormal finding of the coronary vasculature and recommended a echocardiogram by her primary doctor as well. Patient does have an elevation in her BNP. There was no echocardiogram noted in the EMR. She was on Lasix. I feel that her presentation today is more COPD and less likely CHF. She was given Lasix. She feels somewhat better after breathing treatment. She does have a productive cough and were able to obtain a sputum sample. Given the patient's increased need for oxygen above her baseline admission to the hospital as needed. Discussed the case with Dr. Montoya hospitalist on-call. Patient was given steroids and Levaquin. Discussed the need for admission with the patient expressed understanding and agreement as well. Discharge Plan Departure Patient Disposition: Admitted As Inpatient Clinical Impression: COPD exacerbation Admit Date/Time: 09/19/24 20:53 Admit Provider: Erasmo Montoya
[2024-09-19] MEDS: LORazepam 0.5 MG TABLET PO (19:09)
[2024-09-19 19:37] LABS: Adenovirus Not Detected (Not Detect); B. parapertussis Not Detected (Not Detecte); Bordetella pertussis Not Detected (Not Detect); Chlamydophila pneumoniae Not Detected (Not Detect); Coronavirus 229E Not Detected (Not Detect); Coronavirus HKU1 Not Detected (Not Detect); Coronavirus NL 63 Not Detected (Not Detect); Coronavirus OC43 Not Detected (Not Detect); Human Metapneumovirus Not Detected (Not Detect); Human Rhinovirus/Enterovirus Not Detected (Not Detect); Influenza A Not Detected (Not Detect); Influenza B Not Detected (Not Detect); Mycoplasma pneumoniae Not Detected (Not Detect); Parainfluenza Virus 1 Not Detected (Not Detect); Parainfluenza Virus 2 Not Detected (Not Detect); Parainfluenza Virus 3 Not Detected (Not Detect); Parainfluenza Virus 4 Not Detected (Not Detect); Respiratory Syncytial Virus Not Detected (Not Detect); SARS- CoV-2 Not Detected (Not Detecte)
--- NOTE | 2024-09-19 20:23 | PC.NURSE ---
VIDEO CAMERA OPERATOR note: Attempted ambulation trial. Patient was on 3L of oxygen, with pulse oximeter on. Patient was able to walk maybe 15 steps, but complained of being dizzy, pursed lips breathing, and holding her side. She wanted to go back to her room. Upon getting back to her gurney patient had a hard time catching her breath and needed cueing on getting into bed. Immediately took patient's blood pressure and put her back on pulse oximetery. Let Doctor Mahendra know.
[2024-09-19] MEDS: methylPREDNISolone 125 MG/2 ML VIAL IV (20:47)
[2024-09-19] MEDS: levoFLOXacin 500 MG/100 ML PIGGYBACK 100 MG IV (20:48)
[2024-09-19] MEDS: FUROSEMIDE 40 MG/4 ML VIAL IV (21:17)
[2024-09-19] MEDS: ATORVASTATIN 20 MG TABLET 80 MG PO (23:21)
[2024-09-19] MEDS: ASPIRIN EC 81 MG TABLET PO (23:21)
[2024-09-19] MEDS: EZETIMIBE 10 MG TABLET PO (23:22)
[2024-09-19] MEDS: ISOSORBIDE MONONITRATE ER 30 MG TABLET PO (23:22)
[2024-09-19] MEDS: METOPROLOL ER 50 MG TABLET PO (23:22)
[2024-09-19] MEDS: INSULIN GLARGINE 100 UNIT/ML 3ML PEN 35 UNIT SUBCUT (23:23)
[2024-09-19 23:59] LABS: MRSA (Nasal) PCR NOT DETECTED (Not Detect)
[2024-09-20] VITALS (67 sets, daily range): BP systolic 136–174; BP diastolic 67–102; PULSE 72–102; RESP 9–47; TEMP 30.8–36.9; O2SAT 92–98
[2024-09-20] MEDS: cloNIDine 0.1 MG TABLET PO ×3 (00:34→20:15)
[2024-09-20] MEDS: levoFLOXacin 500 MG/100 ML PIGGYBACK 100 MG IV (00:34)
--- NOTE | 2024-09-20 02:18 | P.HP_ITS ---
History of Present Illness History of Present Illness Chief complaint: SOB Narrative: 79-year-old female with past medical history of COPD on 3 L of oxygen at baseline, hyperlipidemia, CHF, insulin-dependent diabetes and GERD presents with complain a shortness of breath. Per the patient's report, over the last few weeks, the patient has been having progressively increasing shortness of breath. The patient was diagnosed with pneumonia and started on amoxicillin a week ago. The patient was told that she had a incidental nodule on chest x-ray and needed a follow up with a CT scan of a chest. Despite taking the antibiotic and her home inhalers the patient continues to have a productive cough with increasing shortness of breath and wheezing. The patient denies any lower extremities edema. Denies any fever, chills, nausea, vomiting or diarrhea. In our emergency room, the patient was hemodynamically stable. Chest x-ray did not show a clear sign of pneumonia. CT of the chest shows a pulmonary nodule but again did not show any clear sign of pneumonia or pulmonary edema. BMP however was elevated at 1700. IV Solumedrol well as IV Lasix 40 mg times x1 was given. Levaquin given. Patient was still saturating relatively well on 3 to 4L of oxygen. FORMERLY [facility] Medical History GERD (gastroesophageal reflux disease) Skin lesion of back Hyperlipidemia Coronary artery disease Tobacco dependency Diabetes type 2, controlled Diabetes COPD (chronic obstructive pulmonary disease) Surgical History History of bilateral inguinal hernia repair History of bowel resection History of coronary artery bypass graft Family History Mother Hypertension Father Heart disease Grandmother Diabetes mellitus Grandfather Cancer Social History household members: children Smoking Status: Current every day smoker alcohol intake: never Meds Home Medications and Allergies Home Medications Medication Instructions Recorded Confirmed Type aspirin 81 mg tablet,delayed 81 mg PO BEDTIME 02/14/19 09/19/24 History release atorvastatin 80 mg tablet 80 mg PO 2200 02/14/19 09/19/24 History budesonide-formoterol HFA 160 2 puff inhalation BID 02/14/19 09/19/24 History mcg-4.5 mcg/actuation aerosol inhaler (Symbicort) cetirizine 10 mg capsule 10 mg PO DAILY 02/14/19 09/19/24 History ezetimibe 10 mg tablet (Zetia) 10 mg PO 219902/14/19 09/19/24 History furosemide 40 mg tablet 40 mg PO BID 02/14/19 09/19/24 History insulin glargine 100 unit/mL (3 35 unit SUBCUT 0 02/14/19 09/19/24 History mL) subcutaneous pen (Lantus Solostar U-100 Insulin) isosorbide mononitrate 30 mg 30 mg PO BID 02/14/19 09/19/24 History tablet,extended release 24 hr lorazepam 0.5 mg tablet 0.5 mg PO QD-BID PRN Anxiety 02/14/19 09/19/24 History metoprolol succinate 50 mg capsule 50 mg PO BID 02/14/19 09/19/24 History sprinkle, ext. release 24 hr insulin aspart U-100 100 unit/mL 3 unit SUBCUT 1500 05/22/19 09/19/24 History (3 mL) subcutaneous pen (Novolog FlexPen U-100 Insulin aspart) levalbuterol tartrate 45 2 puff inhalation PRN PRN Dyspnea 05/22/19 09/19/24 History mcg/actuation aerosol inhaler (Xopenex HFA) nitroglycerin 0.4 mg sublingual 0.4 mg sublingual Q5-15M PRN Chest 05/22/19 09/19/24 History tablet Pain omeprazole 20 mg capsule,delayed 1 tab PO DAILY 05/22/19 09/19/24 History release clonidine HCl 0.1 mg tablet 0.1 mg PO BID 09/19/24 09/19/24 History Allergies Allergy/AdvReac Type Severity Reaction Status Date / Time latex Allergy Unknown Rash Verified 06/19/20 17:05 Sulfa (Sulfonamide Allergy Unknown vomiting, Verified 06/19/20 17:05 Antibiotics) rash Review of Systems Review of Systems ROS: Yes All systems reviewed with the patient and are negative except as otherwise documented Exam Vital Signs (past 8 hours): - 09/19/24 18:30 09/19/24 18:31 09/19/24 18:31 Pulse Rate 86 85 Respiratory Rate 32 H 39 H Blood Pressure 183/86 H Pulse Oximetry 96 96 Oxygen Delivery Method Oxygen Flow Rate 09/19/24 19:00 09/19/24 19:01 09/19/24 19:01 Pulse Rate 85 84 Respiratory Rate 18 20 Blood Pressure 168/74 H Pulse Oximetry 96 96 Oxygen Delivery Method Oxygen Flow Rate 09/19/24 19:30 09/19/24 20:00 09/19/24 20:21 Pulse Rate 85 78 90 Respiratory Rate 18 23 18 Blood Pressure Pulse Oximetry 91 96 92 Oxygen Delivery Method Oxygen Flow Rate 3 3 09/19/24 20:21 09/19/24 20:30 09/19/24 21:00 Pulse Rate 83 78 Respiratory Rate 46 H 24 Blood Pressure 180/79 H Pulse Oximetry 96 95 Oxygen Delivery Method Oxygen Flow Rate 3 3 09/19/24 21:30 09/19/24 21:35 09/19/24 22:02 Pulse Rate 78 83 Respiratory Rate 21 27 H Blood Pressure Pulse Oximetry 96 96 96 Oxygen Delivery Method Nasal Cannula Oxygen Flow Rate 3 3 09/19/24 22:04 09/19/24 22:04 09/19/24 22:30 Pulse Rate 83 87 Respiratory Rate 32 H 33 H Blood Pressure 136/79 Pulse Oximetry 96 95 Oxygen Delivery Method Oxygen Flow Rate 3 09/19/24 23:00 09/19/24 23:22 09/19/24 23:52 Pulse Rate 83 83 80 Respiratory Rate 25 H Blood Pressure 136/79 Pulse Oximetry 96 Oxygen Delivery Method Oxygen Flow Rate 09/20/24 00:34 09/20/24 01:28 Pulse Rate 80 Respiratory Rate Blood Pressure 136/79 Pulse Oximetry 97 Oxygen Delivery Method Nasal Cannula Oxygen Flow Rate 3 Oxygen Delivery Method Nasal Cannula Oxygen Flow Rate 3 Narrative Exam Narrative: GENERAL: The patient is not in any acute distressed. Awake and alert. HEENT: Nonicteric sclerae, PERRLA, EOMI. Oropharynx clear. Moist mucous membranes. Conjunctivae appear well perfused. HEART: Regular rate and rhythm without murmurs. No lower extremities edema. LUNGS: Clear to auscultation bilaterally. No wheezing, crackles or rhonchi ABDOMEN: Soft, positive bowel sounds, nontender. SKIN: No rash, no excessive bruising, petechiae, or purpura. NEUROLOGIC: AxO x 3. Cranial nerves II-XII intact without motor/sensory deficit. Objective Labs 09/19/24 17:32 09/19/24 17:32 Labs: Laboratory Results - last 24 hr 09/19/24 09/19/24 09/19/24 17:32 18:30 22:30 WBC 10.4 RBC 4.75 Hgb 16.2 H Hct 48.1 H MCV 101.3 H MCH 34.0 MCHC 33.6 RDW 13.5 Plt Count 151 Neut % (Auto) 85.6 H Lymph % (Auto) 6.5 L [place] % (Auto) 6.5 Eos % (Auto) 0.9 L Baso % (Auto) 0.5 Neut # (Auto) 8900 H Lymph # (Auto) 700 L [place] # (Auto) 700 Eos # (Auto) 100 Baso # (Auto) 0 PT 10.8 INR 1.0 Sodium 140 Potassium 4.0 Chloride 102 Carbon Dioxide 35 H BUN 24 H Creatinine 1.17 H Estimated GFR 47 L BUN/Creatinine Ratio 20.5 Glucose 167 H Lactate 1.1 Calcium 11.2 H Total Bilirubin 0.4 AST 27 ALT 24 Alkaline Phosphatase 118 Troponin I < 0.012 NT-Pro-B Natriuret Pep 1720 H Total Protein 6.8 Albumin 3.8 Globulin 3.0 Albumin/Globulin Ratio 1.3 Nasal Screen MRSA (PCR) Not detected Chlamy pneumoniae PCR Not detected Adenovirus (PCR) Not detected B. pertussis DNA (PCR) Not detected B.parapertussis DNA PCR Not detected Coronavirus OC43 (PCR) Not detected Coronavirus HKU1 (PCR) Not detected Coronavirus 229E (PCR) Not detected SARS-CoV-2 (PCR) Not detected Coronavirus NL63 (PCR) Not detected Human Metapneumovir PCR Not detected Influenza Type A (PCR) Not detected Influenza Type B (PCR) Not detected M. pneumoniae (PCR) Not detected Parainfluenza 1 (PCR) Not detected Parainfluenza 2 (PCR) Not detected Parainfluenza 3 (PCR) Not detected Parainfluenza 4 (PCR) Not detected RSV (PCR) Not detected Entero/Rhino (PCR) Not detected Assessment & Plan Assessment & Plan narrative: COPD exacerbation. Admit the patient to medical telemetry is inpatient. Continue Solu-Medrol, duonebs and empiric antibiotics Levaquin. Mild CHF exacerbation. s/p IV Lasix in ER. Resume home oral Lasix in AM. Continue to monitor renal function and respiratory status. Chronic respiratory failure with hypoxia. Patient still on 3 L of oxygen and saturating well. Treat as above and monitor respiratory status. Incidental lung nodule 1.5cm. Follow up with repeat imaging as reccomended in 3 months. Hyperlipidemia resume Home statin. Dependent diabetes insulin. SQ insulin and monitor glucose. DVT prophylaxis heparin sub Code status is full code. Disosition likely home in two days. Time-Based Coding :: [TOTAL MINUTES] spent with patient and on the chart (including review of chart, obtaining history, exam, reviewing outside data, placing orders, documenting exam and treatment plan, and counseling patient) on [DATE]. Quality VTE Deep Vein Thrombosis/Pulmonary Embolism Present on Admission: No
[2024-09-20 05:37] LABS: Add Manual Diff / Slide Review NO; Basophils Absolute Auto 0 /uL (0-100); Basophils Percent Auto 0.3 % (0-2); Eosinophils Absolute Auto 0 /uL (0-450); Hemoglobin 15.5 g/dL (12.0-16.0); Lymphocytes Absolute Auto 300 /uL (1100-4500); Lymphocytes Percent Auto 3.9 % (25-40); Mean Corpuscular HGB Conc 33.7 % (30-36); Mean Corpuscular Volume 100.8 fL (80-100); Monocytes Absolute Auto 200 /uL (0-900); Neutrophils Absolute Auto 7800 /uL (1500-7000); Neutrophils Percent Auto 93.8 % (50-75); Platelet Count 141 X10^3/uL (150-400); Red Blood Cell Count 4.56 X10^6/uL (4.0-5.2); Red Cell Distribution Width 13.3 % (11.6-14.8); White Blood Cell Count 8.3 X10^3/uL (4.5-11.0)
[2024-09-20 05:49] LABS: BUN Creatinine Ratio 21.9 (6-22); Blood Urea Nitrogen 28 mg/dL (7-17); Calcium 11.1 mg/dL (8.4-10.2); Carbon Dioxide 36 mmol/L (22-32); Chloride 99 mmol/L (98-107); Estimated Glomerular Filt Rate 42 mL/min (>60); Glucose 229 mg/dL (80-110); HEMOLYSIS < 15 (0-50); Potassium 3.9 mmol/L (3.4-5.1); Sodium 136 mmol/L (137-145)
[2024-09-20] MEDS: ALBUTEROL 2.5 MG/3 ML NEB (ADULT) INH ×3 (07:14→18:36)
[2024-09-20] MEDS: ALBUTEROL 2.5 MG/3 ML NEB (ADULT) 5 MG INH ×2 (07:51→14:03)
[2024-09-20] MEDS: BUDESONIDE 0.5 MG/2 ML NEB INH ×2 (08:10→18:36)
[2024-09-20] MEDS: LORATADINE 10 MG TABLET PO (08:28)
[2024-09-20] MEDS: METOPROLOL ER 50 MG TABLET PO ×2 (08:28→20:15)
[2024-09-20] MEDS: ISOSORBIDE MONONITRATE ER 30 MG TABLET PO ×2 (08:28→20:15)
[2024-09-20] MEDS: PANTOPRAZOLE DR 20 MG TABLET PO (08:28)
[2024-09-20] MEDS: FUROSEMIDE 40 MG TABLET PO (08:31)
[2024-09-20] MEDS: HEPARIN 5,000 UNIT/ML VIAL 5000 UNIT SUBCUT ×2 (08:31→20:16)
[2024-09-20] MEDS: predniSONE 20 MG TABLET 40 MG PO (10:02)
--- NOTE | 2024-09-20 11:06 | OT.IP.EVAL ---
Current Diagnoses Chronic obstructive pulmonary disease with (acute) exacerbation (09/19/24) Past Medical History (Last Reviewed 09/19/24 @ 21:33 by Jason Mccray DO) COPD (chronic obstructive pulmonary disease) Coronary artery disease Diabetes Diabetes type 2, controlled GERD (gastroesophageal reflux disease) Hyperlipidemia Skin lesion of back Tobacco dependency Surgical History (Last Reviewed 06/20/20 @ 00:23 by LAURE Gaspar) History of bilateral inguinal hernia repair History of bowel resection History of coronary artery bypass graft Occupational Therapy Inpatient Evaluation/Re-Eval M1 PT/OT-IP Prior Functional Status Start: 09/20/24 09:04 Freq: NEEDED Status: Active Protocol: Document 09/20/24 13:23 CGR (Rec: 09/20/24 13:44 CGR [id number]) Medical Review Prior Functional Status Medical History Reviewed Yes Diet/Fluid Consistency Regular Communication WNLs, easily BYRD with talking and activity Mobility and Gait Pt reports mod I with cane short distances and that she does not always use her O2. She wears 3L O2 at night and has been wearing it more during the day lately Activities of Daily Living and IADL's Pts reports mod I with use of shower chair and SPC in the home. She uses the moterized w /c for longer distances. Pt states her son does the cooking and cleaning. Pt does not drive but states that she takes paratransit. Prior Functional Level (Other details) She uses scooter when going to doctor's appointments and she takes [employer] in town in [place] for appointments Social History Household Members children,other Living Arrangements House Number of Floors (Floors) Two Floors Number of Stairs To Enter/Railing? 2 sets of 3 steps to enter, one set has B rails and second steps has left rail, flight of steps to second floor Home Environment High Toilet,Walk in Shower Home Equipment Straight Cane,Power Wheelchair /Scooter,Shower Seat with Backrest,Hand Held Shower,Grab Bars Near Toilet,Grab Bars In Shower Employment Status Retired Additional Social History Comment 3L O2 M2 OT-IP Current Condition Start: 09/20/24 13:23 Freq: Status: Active Protocol: Document 09/20/24 13:23 CGR (Rec: 09/20/24 13:44 CGR [id number]) Occupational Therapy Current Condition Current Condition Evaluation Date 09/20/24 Treatment Diagnosis COPD exacerbation, Mild CHF Diagnosis Onset Date 09/19/24 M3 OT- IP Subjective and Pain Start: 09/20/24 13:23 Freq: Status: Active Protocol: Document 09/20/24 13:23 CGR (Rec: 09/20/24 13:44 CGR [id number]) OT- Subjective Occupational Therapy Visit Type Type Initial Evaluation Visit Start Time 10:43 Visit Stop Time 11:06 Notes Partial co-treat OT Pain Assessment Pain Present Pain Present Denied Pain M4 OT- IP ADL's Start: 09/20/24 13:23 Freq: Status: Active Protocol: Document 09/20/24 13:23 CGR (Rec: 09/20/24 13:44 CGR [id number]) OT [id number] Comments OT Self-Feeding Comments not meal time OT ADL-Grooming Comments OT Grooming Comments not performed OT ADL-Oral Care Comments Oral Care Comments pt declined OT ADL-Dressing General Eval Lower Body Dressing Ability Standby Assistance Areas Needing Assistance Socks Comments OT Dressing Comments Pt donned sock to the LLE but declined to don to the RLE and instead donned slip on shoes. OT ADL-Toileting Comments OT Toileting Comments not performed OT ADL-Bathing Comments OT Bathing Comments not performed M5 OT- IP IADL's Start: 09/20/24 13:23 Freq: Status: Active Protocol: Document 09/20/24 13:23 CGR (Rec: 09/20/24 13:44 CGR [id number]) OT-Instrumental Activities of Daily Living Deficits IADL Deficits Identified No Deficits Home Safety Awareness Awareness of Need for Assistance at Home Good Awareness Ability to Problem Solve Emergency Able to Problem Solve Situations Medication Management Medication Management No Deficits Identified Money Management Money Management No Deficits Identified Meal Preparation Meal Preparation Caregiver Provides Assist Help Desk Administrator Help Desk Administrator Caregiver Provides Assist Driving Driving Comments Pt does not drive. M6 OT- IP Functional Cognition Start: 09/20/24 13:23 Freq: Status: Active Protocol: Document 09/20/24 13:23 CGR (Rec: 09/20/24 13:44 CGR [id number]) Cognitive Factors Limiting Selfcare Function Cognitive Ability Level of Alertness Alert Patient Orientation Name,Age,Birthday,Month,Date, Year,Day of Week,Place, Situation Attention Span Ability Capable of Focused Attention, Capable of Sustained Attention OT- Vision and Hearing OT- Hearing Assessment OT- Hearing Assessment WFL OT- Vision Assessment Visual Acuity Glasses All The Time Visual Attentiveness WFL Occular Pursuits WFL Visual Convergence WFL M7 OT- IP Mobility and Balance Start: 09/20/24 13:23 Freq: Status: Active Protocol: Document 09/20/24 13:23 CGR (Rec: 09/20/24 13:44 CGR [id number]) OT- Bed Mobility Assessment Supine to Sit Supine to Sit Assist Standby Assistance Scooting Scooting to Edge of Bed Standby Assistance OT-Transfer Assessment Sit to and From Stand Sit to and from Stand Standby Assistance Transfers Transfer Ability Contact Guard Assistance Technique Transfer Destination Bed,Chair Transfer Technique Stand Step Pivot Devices Transfer Assistive Devices Gait Belt,Straight Cane Comments Mobility Comments Pt transfered to chair but is very SOB with all activity and requires extra time. OT- Gait Assessment Comments Gait Ability Comments Not performed d/t dyspnea OT- Balance Assessment Sitting Balance and Reactions Static Sitting Balance Ability Normal Dynamic Sitting Balance Ability Normal M8 OT- IP Objective Assessments Start: 09/20/24 13:23 Freq: Status: Active Protocol: Document 09/20/24 13:23 CGR (Rec: 09/20/24 13:44 CGR [id number]) OT Gross Range of Motion Upper Extremity Range of Motion Assessment Within Functional Limits OT Strength Comments Strength Comments not tested d/t dyspnea OT- Coordination Assessment Upper Extremity Finger to Nose Test Within Functional Limits Finger Tapping Test Within Functional Limits OT-Muscle Tone Assessment Muscle Tone WNL Yes OT Sensation Assessment Edema Edema Absent M9 OT- IP Assessment and Plan Start: 09/20/24 13:23 Freq: Status: Active Protocol: Document 09/20/24 13:23 CGR (Rec: 09/20/24 13:44 CGR [id number]) OT Summary Assessment and Plan Potential Rehabilitation Potential Good Analytic Complexity at Evaluation Low Summary OT Impairments Functional Mobility,Grooming, Dressing,Toileting,Bathing, Toilet Transfers,Shower Transfers,Activity Tolerance Progress Towards Goals Slow Progress due to Activity Tolerance Assessment Summary Pt presents as a low complexity evaluation s/p admit for dyspnea. Pt is significantly labored in breathing after minimal activity and requires significant time to catch her breath. Pt states that at baseline she is only on O2 at night. Pt will benefit from energy conservation education and increased activity tolerance. Goals Grooming Goal Independent Dressing Goal Independent Toileting Goal Independent Bathing Goal Independent Toilet Transfer Goal Independent Shower Transfer Goal Independent Days to Meet Goals 10 Frequency of Treatment Other frequency 5x per week. Treatment Plan OT Treatment Plan ADL Training,Functional Mobility,Patient/Family Education,Discharge Planning Other Treatment Recommendations and Next energy conservation education. Treatment Focus Discharge Recommendations OT Discharge Recommendations Home with Assistance Transportation Needs at Discharge Private Vehicle
--- NOTE | 2024-09-20 11:14 | PT.IIE ---
Current Diagnoses Chronic obstructive pulmonary disease with (acute) exacerbation (09/19/24) Surgical History (Last Reviewed 06/20/20 @ 00:23 by LAURE Gaspar) History of bilateral inguinal hernia repair History of bowel resection History of coronary artery bypass graft Medical History (Last Reviewed 09/19/24 @ 21:33 by Jason Mccray DO) COPD (chronic obstructive pulmonary disease) Coronary artery disease Diabetes Diabetes type 2, controlled GERD (gastroesophageal reflux disease) Hyperlipidemia Skin lesion of back Tobacco dependency Physical Therapy Inpatient Evaluation/Re-Eval M1 PT/OT-IP Prior Functional Status Start: 09/20/24 09:04 Freq: NEEDED Status: Active Protocol: Document 09/20/24 10:43 MB (Rec: 09/20/24 11:14 MB [id number]) Medical Review Prior Functional Status Medical History Reviewed Yes Diet/Fluid Consistency Regular Communication WNLs, easily BYRD with talking and activity Mobility and Gait Pt reports mod I with cane short distances and that she does not always use her O2. She wears 3L O2 at night and has been wearing it more during the day lately Activities of Daily Living and IADL's Pts reports mod I Prior Functional Level (Other details) She uses scooter when going to doctor's appointments and she takes [employer] in town in [place] for appointments Social History Household Members children,other Living Arrangements House Number of Floors (Floors) Two Floors Number of Stairs To Enter/Railing? 2 sets of 3 steps to enter, one set has B rails and second steps has left rail, flight of steps to second floor Home Environment High Toilet,Walk in Shower Home Equipment Straight Cane,Power Wheelchair /Scooter,Shower Seat with Backrest,Hand Held Shower,Grab Bars Near Toilet,Grab Bars In Shower Employment Status Retired Additional Social History Comment 3L O2 M2 PT-IP Current Condition Start: 09/20/24 09:04 Freq: NEEDED Status: Active Protocol: Document 09/20/24 10:43 MB (Rec: 09/20/24 11:14 MB [id number]) Physical Therapy Current Condition Current Condition Evaluation Date 09/20/24 Treatment Diagnosis COPD exacerbation, SOB M3 PT-IP Subjective Start: 09/20/24 09:04 Freq: NEEDED Status: Active Protocol: Document 09/20/24 10:43 MB (Rec: 09/20/24 11:14 MB [id number]) Subjective Physical Therapy Visit Type Type Initial Evaluation Visit Start Time 10:43 Visit Stop Time 11:02 Number of OFFICE SERVICES ASSISTANT Visits 0 Physical Therapy Visit Comments Patient Comments Pt is agreeable to PT Therapy Pain Assessment Pain When Pain Assessed At Rest Pain Present Pain Present Pain Reported M4 PT-IP Mobility and Gait Start: 09/20/24 09:04 Freq: NEEDED Status: Active Protocol: Document 09/20/24 10:43 MB (Rec: 09/20/24 11:14 MB [id number]) PT-Bed Mobility Assessment Supine to Sit Supine to Sit Contact Guard Assistance,1 Person Assistance,Head of Bed Elevated Scooting Scooting to Edge of Bed Contact Guard Assistance PT-Transfer Assessment Sit to and From Stand Sit to and from Stand Contact Guard Assistance,1 Person Assistance,Use of Upper Extremities Equipment Transfer Assistive Device Gait Belt,Straight Cane Orthotic/Prosthetic Devices or Brace: No Transfers Transfer Destination Chair Transfer Technique Stepping Transfer Ability Level of Assist Contact Guard Assistance,1 Person Assistance,Use of Upper Extremities Comments Mobility Comments Frequent rest breaks d/t BYRD. O2 sats on 1L O2 remain in the low 90s except for one drop to 89% once up in chair. Tele reads frequent PVCs and HR increases to 128 BPM. PT attempts to check radial pulse and right wrist has IV and wrist tag and watch is tight on left wrist and PT doffs and places in pt's edmond pack with pt and OT observing and pt states she wishes to keep in room and not in hospital safe. PT is able to palpate left radial pulse and HR decreases to the 90s and remains in the 80s and 90s throughout short mobility. RR rate increases with activity and dyspnea scale is 4/4 with activity. Gait Assessment Gait Gait Assistance Required: Contact Guard Assist Distance (Feet) 2 Able to Maintain Weight Bearing Status Yes During Gait Assistive Devices Assistive Device Gait Belt,Straight Cane Orthotic/Prosthetic Devices or Brace: No Gait Deviations General Gait Pattern Decreased Stride Length, Decreased Feet Clearance, Flexed Trunk,Step-to Gait,Wide Based Gait Factors Limiting Gait Function Factors Limiting Gait Function Decreased Activity Tolerance, Pain,Poor Balance Comments Gait Comments B feet with skin changes: flaky skin that is pinker than other skin tone and pt dons slippers I sitting EOB PT-Balance Assessment Sitting Balance and Reactions Static Sitting Balance Ability Good Dynamic Sitting Balance Ability Fair Standing Balance and Reactions Static Standing Balance Ability Fair Dynamic Standing Balance Ability Fair Device Used SPC right hand M5 PT-IP Objective Assessments Start: 09/20/24 09:04 Freq: NEEDED Status: Active Protocol: Document 09/20/24 10:43 MB (Rec: 09/20/24 11:14 MB [id number]) Orientation Orientation/Cognition Level of Alertness Alert Orientation Name,Age,Birthday,Month,Date, Place,Situation Language Function Ability No Deficits Noted Safety Awareness Decreased Safety Awareness Memory Description No Deficits Noted Gross Range of Motion Upper Extremity ROM Impairments Defer to OT Lower Extremity ROM Impairments Decreased hip extension noted in postural changes, functional mobility in stooped posture presentation Strength Comments Strength Comments See ROM comments for LEs Coordination Assessment Assessment Coordination Comments Slow and effort-full mobility and tasks Sensation Assessment Comments Sensation Comments Did not test Muscle Tone Muscle Tone WNL Yes M6 PT-IP Treatment Start: 09/20/24 09:04 Freq: NEEDED Status: Active Protocol: Document 09/20/24 10:43 MB (Rec: 09/20/24 11:14 MB [id number]) Physical Therapy Treatment Education Education Provided Safety M7 PT-IP Assessment and Plan Start: 09/20/24 09:04 Freq: NEEDED Status: Active Protocol: Document 09/20/24 10:43 MB (Rec: 09/20/24 11:14 MB [id number]) PT Summary Assessment and Plan Potential Rehabilitation Potential Fair Status of Condition at Evaluation Unstable Summary Impairments Pain,ROM,Strength,Balance, Coordination,Bed Mobility, Transfers,Gait,Activity Tolerance Progress Towards Goals Slow Progress due to Activity Tolerance Assessment Summary Pt is an 79 y/o lady who reports good support from son and friend at home. They assist with home tasks and pt reports mod I with mobility and self-care with use of SPC short distance and scooter when leaving the home. Pt presents with severe BYRD with dyspnea scale 4/4 with minimal mobility on 1L O2 and she requires frequent rest breaks with minimal functional activities of scooting to EOB (HOB already increased), transfers, and a few steps. As pt tolerates, increase gait distance and check stair mobility. Recommend up to chair with nsg all meals. Goals Bed Mobility Goal Independent Transfer Goal Standby Assistance,Cane,Front Wheeled Walker,Four Wheeled Walker Gait Goal Standby Assistance,Cane,Front Wheel Walker,Four Wheel Walker Gait Distance 50 Other Goals Pt will ascend and descend 3 steps with left rail and LRAD (likely cane) and no more than CGA to allow safe home entry. LRAD training if SPC is not appropriate: RW vs 4WRW given pulmonary presentation Days to Meet Goals 5 Frequency of Treatment Frequency Of Treatment Once a Day Treatment Plan Physical Therapy Treatment Plan Bed Mobility Training,Transfer Training,Gait Training, Therapeutic Exercise,Balance Retraining,Discharge Planning, Hot or Cold Pack,Neuromuscular Re-ed,Coordination Retraining ,Manual Therapy Precautions Other Precautions O2 needs, BYRD Recommendations To Nursing Amount of Assist Needed 1 Person Assist Discharge Recommendations PT Discharge Recommendations Home with 16/05 Assist Available,Home Health Transportation Needs at Discharge Private Vehicle
--- NOTE | 2024-09-20 11:30 | PM.PN.1 ---
Subjective Subjective Interval history: 79 year old female admitted with acute respiratory admitted with COPD exacerbation. She is on less than her usual amount of oxygen this morning, feels short of breath and is still quite wheezy. Continues to have cough, no fever, feels very dry and thirsty. Exam Vital Signs (past 8 hours): - 09/20/24 05:00 09/20/24 07:51 09/20/24 08:10 Pulse Rate 86 90 Respiratory Rate 34 H 24 Blood Pressure 161/70 H Pulse Oximetry 97 95 94 Oxygen Delivery Method Nasal Cannula Nasal Cannula Oxygen Flow Rate 3 3 1 09/20/24 08:28 09/20/24 08:31 09/20/24 09:00 Pulse Rate 89 90 Respiratory Rate Blood Pressure 161/70 H 161/70 H Pulse Oximetry 94 Oxygen Delivery Method Nasal Cannula Oxygen Flow Rate 1 09/20/24 11:01 Pulse Rate Respiratory Rate Blood Pressure Pulse Oximetry Oxygen Delivery Method Nasal Cannula Oxygen Flow Rate Oxygen Delivery Method Nasal Cannula Oxygen Flow Rate 1 Narrative Exam Narrative: GENERAL: The patient is not in any acute distressed. Awake and alert. HEENT: Nonicteric sclerae, PERRLA, EOMI. Oropharynx clear. Dry mucous membrance with chelitis Conjunctivae appear well perfused. HEART: Regular rate and rhythm without murmurs. No lower extremities edema. LUNGS: Clear to auscultation bilaterally. No wheezing, crackles or rhonchi ABDOMEN: Soft, positive bowel sounds, nontender. SKIN: No rash, no excessive bruising, petechiae, or purpura. NEUROLOGIC: AxO x 3. Cranial nerves II-XII intact without motor/sensory deficit. Objective Labs 09/20/24 04:20 09/20/24 04:20 Labs: Laboratory Results - last 24 hr 09/19/24 09/19/24 09/19/24 17:32 18:30 22:30 WBC 10.4 RBC 4.75 Hgb 16.2 H Hct 48.1 H MCV 101.3 H MCH 34.0 MCHC 33.6 RDW 13.5 Plt Count 151 Neut % (Auto) 85.6 H Lymph % (Auto) 6.5 L Cache % (Auto) 6.5 Eos % (Auto) 0.9 L Baso % (Auto) 0.5 Neut # (Auto) 8900 H Lymph # (Auto) 700 L Cache # (Auto) 700 Eos # (Auto) 100 Baso # (Auto) 0 PT 10.8 INR 1.0 Sodium 140 Potassium 4.0 Chloride 102 Carbon Dioxide 35 H BUN 24 H Creatinine 1.17 H Estimated GFR 47 L BUN/Creatinine Ratio 20.5 Glucose 167 H Lactate 1.1 Calcium 11.2 H Total Bilirubin 0.4 AST 27 ALT 24 Alkaline Phosphatase 118 Troponin I < 0.012 NT-Pro-B Natriuret Pep 1720 H Total Protein 6.8 Albumin 3.8 Globulin 3.0 Albumin/Globulin Ratio 1.3 Nasal Screen MRSA (PCR) Not detected Chlamy pneumoniae PCR Not detected Adenovirus (PCR) Not detected B. pertussis DNA (PCR) Not detected B.parapertussis DNA PCR Not detected Coronavirus OC43 (PCR) Not detected Coronavirus HKU1 (PCR) Not detected Coronavirus 229E (PCR) Not detected SARS-CoV-2 (PCR) Not detected Coronavirus NL63 (PCR) Not detected Human Metapneumovir PCR Not detected Influenza Type A (PCR) Not detected Influenza Type B (PCR) Not detected M. pneumoniae (PCR) Not detected Parainfluenza 1 (PCR) Not detected Parainfluenza 2 (PCR) Not detected Parainfluenza 3 (PCR) Not detected Parainfluenza 4 (PCR) Not detected RSV (PCR) Not detected Entero/Rhino (PCR) Not detected 09/20/24 04:20 WBC 8.3 RBC 4.56 Hgb 15.5 Hct 46.0 MCV 100.8 H MCH 34.0 MCHC 33.7 RDW 13.3 Plt Count 141 L Neut % (Auto) 93.8 H Lymph % (Auto) 3.9 L Cache % (Auto) 2.0 L Eos % (Auto) 0.0 L Baso % (Auto) 0.3 Neut # (Auto) 7800 H Lymph # (Auto) 300 L Cache # (Auto) 200 Eos # (Auto) 0 Baso # (Auto) 0 PT INR Sodium 136 L Potassium 3.9 Chloride 99 Carbon Dioxide 36 H BUN 28 H Creatinine 1.28 H Estimated GFR 42 L BUN/Creatinine Ratio 21.9 Glucose 229 H Lactate Calcium 11.1 H Total Bilirubin AST ALT Alkaline Phosphatase Troponin I NT-Pro-B Natriuret Pep Total Protein Albumin Globulin Albumin/Globulin Ratio Nasal Screen MRSA (PCR) Chlamy pneumoniae PCR Adenovirus (PCR) B. pertussis DNA (PCR) B.parapertussis DNA PCR Coronavirus OC43 (PCR) Coronavirus HKU1 (PCR) Coronavirus 229E (PCR) SARS-CoV-2 (PCR) Coronavirus NL63 (PCR) Human Metapneumovir PCR Influenza Type A (PCR) Influenza Type B (PCR) M. pneumoniae (PCR) Parainfluenza 1 (PCR) Parainfluenza 2 (PCR) Parainfluenza 3 (PCR) Parainfluenza 4 (PCR) RSV (PCR) Entero/Rhino (PCR) [facility] Medical History GERD (gastroesophageal reflux disease) Skin lesion of back Hyperlipidemia Coronary artery disease Tobacco dependency Diabetes type 2, controlled Diabetes COPD (chronic obstructive pulmonary disease) Surgical History History of bilateral inguinal hernia repair History of bowel resection History of coronary artery bypass graft Family History Mother Hypertension Father Heart disease Grandmother Diabetes mellitus Grandfather Cancer Social History household members: children and other Smoking Status: Current every day smoker alcohol intake: never Assessment & Plan Assessment & Plan narrative: COPD w/ exacerbation. - change IV solumedrol to oral prednisone today - still wheezy and subjective dyspnea. - sputum culture pending. Possible acute on chronic diastolic heart failure. - s/p IV Lasix in ER though patient appears quite dry this morning. With slight hypercalcemia. - hold furosemide, though did receive morning dose. - probnp elevation likely due to chronic atrial dilatation from underlying COPD. Hypercalcemia - mild with calcium 11.1, likely slight dehydration will hold home furosemide today. - continue to follow. Elevated creatinine - unknown baseline Cr currently. 1.28 today, likely elevated due to diuresis. - hold furosemide - continue to follow BMP. Chronic respiratory failure with hypoxia. - titrate oxygen to 89-96% while on supplemental therapy, down to 1L today. Incidental lung nodule 1.5cm. Follow up with repeat imaging as reccomended in 3 months. Hyperlipidemia resume Home statin. Dependent diabetes insulin. Continue home glargine 35 U nightly, sliding scale. DVT prophylaxis heparin sub Code status is full code. Disosition, likely home in 1-2 more days. Time-Based Coding :: [TOTAL MINUTES] spent with patient and on the chart (including review of chart, obtaining history, exam, reviewing outside data, placing orders, documenting exam and treatment plan, and counseling patient) on [DATE]. Quality VTE Deep Vein Thrombosis/Pulmonary Embolism Present on Admission: No
[2024-09-20] MEDS: ACETAMINOPHEN 325 MG TABLET 650 MG PO (13:52)
[2024-09-20] MEDS: LORazepam 0.5 MG TABLET PO ×2 (13:52→21:28)
[2024-09-20] MEDS: NICOTINE 21 MG PATCH TOP (14:25)
[2024-09-20 14:31] LABS: Base Excess VBG 10.1 mmol/L (0-4); HCO3 VBG 38 mmol/L (24-28); Oxygen Saturation VBG 91 % (70-75); PCO2 VBG 59.6 mmHg (45-50); PO2 VBG 62 mmHg (35-45); Total CO2 VBG 39 mmol/L (24-29); pH VBG 7.41 (7.33-7.43)
--- NOTE | 2024-09-20 14:31 | DI.RAD.S_ITS ---
PROCEDURE: XR CHEST 1V INDICATIONS: shortness of breath TECHNIQUE: One view of the chest was acquired. COMPARISON: [facility], CR, XR CHEST 1V, 09/19/2024, 17:51. FINDINGS: Surgical changes and devices: None. Lungs and pleura: Chronic blunting of the left costophrenic sulcus. Diffuse interstitial thickening appears chronic. No acute consolidations or pneumothorax. Biapical calcified pleural plaquing. Mediastinum: Mediastinal contours appear normal. Heart size is stable, slightly enlarged. Bones and chest wall: No suspicious bony lesions. Overlying soft tissues appear unremarkable. IMPRESSION: Stable left pleural effusion or pleural plaquing. Stable borderline cardiomegaly. Dictated by: Emmie Martinez M.D. on 09/20/2024 at 14:55 Approved by: Emmie Martinez M.D. on 09/20/2024 at 14:57
--- NOTE | 2024-09-20 14:33 | DI.ECHO.S_ITS ---
[facility] : : [id number] : [place] : : [id number] : : Phone: [phone] Echocardiogram Report + + :Name: MARCIA CONNELL Study Date: 09/21/2024 Height: 70 in : :[facility] ReadingLocation: Weight: 205 lb : : Gender: Female BSA: 2.1 m2 : :: 1945 Age: 79 yrs BP: 133/61 mmHg: :Reason For Study: SHORTNESS OF BREATH : :Ordering Physician: LETTY, : :RONAK GARCIA Performed By: Felipa Kam : :Referring: RONAK SAENZ : + + Interpretation Summary The left ventricle is normal in size. Left ventricular systolic function is low normal. The ejection fraction is estimated to be 50-55%. Diastolic parameters suggest a pseudonormalization pattern, consistent with probable elevated filling pressures. Borderline right ventricular enlargement. Right ventricular systolic function is borderline reduced. The right ventricular systolic pressure is estimated to be at least 46 mmHg based on an estimated right atrial pressure of 8 mm Hg. The left atrium is borderline dilated. There is mild mitral regurgitation. There is mild to moderate tricuspid regurgitation. The aortic root is normal size. Procedure: A two-dimensional transthoracic echocardiogram with color flow and Doppler was performed. The study quality was technically adequate. There is no prior echocardiogram noted for this patient. The heart rate ranged between 67-86 bpm during the study. Left Ventricle: The left ventricle is normal in size. There is mild concentric left ventricular hypertrophy. Left ventricular systolic function is low normal. The ejection fraction is estimated to be 50-55%. There are no focal wall motion abnormalities. Diastolic parameters suggest a pseudonormalization pattern, consistent with probable elevated filling pressures. Right Ventricle: Borderline right ventricular enlargement. Right ventricular systolic function is borderline reduced. Atria: The left atrium is borderline dilated. Right atrial size is normal. There is no Doppler evidence for an interatrial shunt. Mitral Valve: The mitral valve is normal in structure and function. There is mild mitral regurgitation. Aortic Valve: The aortic valve is trileaflet. The aortic valve opens well. There is no aortic valve stenosis. No aortic regurgitation is present. Tricuspid Valve: The tricuspid valve is normal in structure but is abnormal in function. There is mild to moderate tricuspid regurgitation. The right ventricular systolic pressure is estimated to be at least 46 mmHg based on an estimated right atrial pressure of 8 mm Hg. Pulmonic Valve: The pulmonic valve leaflets are thin and pliable; valve motion is normal. There is trace pulmonic regurgitation. Great Vessels: The aortic root is normal size. The dimensions of the ascending aorta are normal. The IVC is dilated (diameter is greater than 2.1 cm) yet it collapses greater than 50% with a sniff. This suggests a right atrial pressure of 8 mm Hg. Pericardium/ Pleura There is no pericardial effusion. There is no pleural effusion. MMode/2D Measurements & Calculations LVIDd: 5.4 cm LVOT diam: 1.8 cm LVIDs: 3.6 cm Ao root diam: 2.3 cm FS: 34.0 % asc Aorta Diam: 2.9 cm IVSd: 1.2 cm LVPWd: 1.2 cm LV escamilla. diameter/BSA (cm/m^2): 2.6 LV sys. diameter/BSA (cm/m^2): 1.7 LA A2 area: 22.2 cm2 RA long axis: 4.0 cm LA A4 area: 20.7 cm2 RA area: 12.3 cm2 LA length (vol): 5.4 cm RA vol: 31.9 ml LA vol: 71.8 ml RA : 15.1 ml/m2 LA vol index: 34.0 ml/m2 IVC diam: 3.1 cm RVD1 (basal): 3.9 cm RVD2 (mid): 3.0 cm TAPSE: 1.7 cm Doppler Measurements & Calculations Ao V2 max: 168.3 cm/sec LVOT Max Aurelio: 109.7 cm/sec Ao V2 mean: 120.7 cm/sec LV V1 max P.8 mmHg Ao max P.3 mmHg LV V1 VTI: 25.1 cm Ao mean P.2 mmHg JOHN(I,D): 1.7 cm2 Ao V2 VTI: 36.3 cm JOHN(V,D): 1.6 cm2 sev ratio: 0.69 JOHN indexed to BSA (cm^2/m^2): 0.82 MV E max aurelio: 95.7 cm/sec TR max aurelio: 307.0 cm/sec MV A max aurelio: 85.5 cm/sec TR max P.7 mmHg MV E/A: 1.1 PA V2 max: 82.4 cm/sec Med Peak E' Aurelio: 5.3 cm/sec PA V2 mean: 55.5 cm/sec E/E' med: 18.1 PA mean P.4 mmHg Lat Peak E' Aurelio: 6.1 cm/sec PA pr(Accel): 29.3 mmHg E/E' lat: 15.7 E/e' average: 16.9 MV dec time: 0.16 sec SV(OT): 63.0 ml Reading Physician:11:34 AM
[2024-09-20 14:35] LABS: Add Manual Diff / Slide Review NO; Basophils Absolute Auto 100 /uL (0-100); Basophils Percent Auto 0.5 % (0-2); Eosinophils Absolute Auto 0 /uL (0-450); Eosinophils Percent Auto 0.1 % (2-4); Hematocrit 47.2 % (36-46); Hemoglobin 15.8 g/dL (12.0-16.0); Lymphocytes Absolute Auto 400 /uL (1100-4500); Lymphocytes Percent Auto 3.5 % (25-40); Mean Corpuscular HGB Conc 33.6 % (30-36); Mean Corpuscular Hemoglobin 33.9 PG (26-34); Mean Corpuscular Volume 100.9 fL (80-100); Monocytes Absolute Auto 300 /uL (0-900); Monocytes Percent Auto 2.7 % (3-14); Neutrophils Absolute Auto 10500 /uL (1500-7000); Neutrophils Percent Auto 93.2 % (50-75); Platelet Count 152 X10^3/uL (150-400); Red Blood Cell Count 4.68 X10^6/uL (4.0-5.2); Red Cell Distribution Width 13.5 % (11.6-14.8); White Blood Cell Count 11.3 X10^3/uL (4.5-11.0)
[2024-09-20] MEDS: LORazepam 2 MG/ML INJ IV (14:40)
[2024-09-20 14:44] LABS: BUN Creatinine Ratio 24.4 (6-22); Blood Urea Nitrogen 31 mg/dL (7-17); Carbon Dioxide 35 mmol/L (22-32); Chloride 97 mmol/L (98-107); Estimated Glomerular Filt Rate 43 mL/min (>60); Glucose 294 mg/dL (80-110); HEMOLYSIS 18 (0-50); Magnesium 1.9 mg/dL (1.6-2.3); Potassium 4.4 mmol/L (3.4-5.1); Sodium 136 mmol/L (137-145)
--- NOTE | 2024-09-20 15:00 | PC.NURSE ---
Pt care passed onto this RN. Pt increased work of breathing, RT and provider at bedside. New orders received. Lorazepam administered per order (see MAR), BiPAP placed by RT. Pt resting comfortably, BiPAP in place, vitals WDL. Care ongoing.
[2024-09-20] MEDS: INSULIN LISPRO 100 UNIT/ML 3ML VIAL SUBCUT (15:41)
--- NOTE | 2024-09-20 15:44 | RT ---
MD at bedside, pt placed on AVAPS and jo ann well. Pt becoming more comfortable and SOB subsiding. Mild sob noted, pt asleep and jo ann well.
[2024-09-20] MEDS: OXYCODONE IR 5 MG TABLET PO ×2 (17:59→21:29)
[2024-09-20] MEDS: ASPIRIN EC 81 MG TABLET PO (20:15)
[2024-09-20] MEDS: levoFLOXacin 250 MG/50 ML PIGGYBACK 50 MG IV (20:16)
[2024-09-20] MEDS: ATORVASTATIN 20 MG TABLET 80 MG PO (21:29)
[2024-09-20] MEDS: EZETIMIBE 10 MG TABLET PO (21:29)
[2024-09-20] MEDS: INSULIN GLARGINE 100 UNIT/ML 3ML PEN 35 UNIT SUBCUT (21:29)
[2024-09-20] MEDS: dexmedeTOMIDine in 0.9 % NaCL 400 MCG/100 ML PLAST..BAG IV (21:36)
[2024-09-21] VITALS (65 sets, daily range): BP systolic 93–175; BP diastolic 49–111; PULSE 62–106; RESP 15–54; TEMP 31–37.1; O2SAT 77–98
[2024-09-21] MEDS: ALBUTEROL/IPRATROPIUM 3 ML AMPUL INH (00:44)
[2024-09-21 05:08] LABS: Add Manual Diff / Slide Review NO; Basophils Absolute Auto 0 /uL (0-100); Basophils Percent Auto 0.4 % (0-2); Eosinophils Absolute Auto 0 /uL (0-450); Eosinophils Percent Auto 0.4 % (2-4); Hematocrit 42.6 % (36-46); Hemoglobin 14.2 g/dL (12.0-16.0); Lymphocytes Absolute Auto 800 /uL (1100-4500); Lymphocytes Percent Auto 9.4 % (25-40); Mean Corpuscular HGB Conc 33.4 % (30-36); Mean Corpuscular Hemoglobin 33.7 PG (26-34); Mean Corpuscular Volume 100.8 fL (80-100); Monocytes Absolute Auto 900 /uL (0-900); Neutrophils Absolute Auto 6900 /uL (1500-7000); Neutrophils Percent Auto 79.8 % (50-75); Platelet Count 129 X10^3/uL (150-400); Red Blood Cell Count 4.22 X10^6/uL (4.0-5.2); Red Cell Distribution Width 13.2 % (11.6-14.8); White Blood Cell Count 8.7 X10^3/uL (4.5-11.0)
[2024-09-21 05:40] LABS: BUN Creatinine Ratio 28.8 (6-22); Blood Urea Nitrogen 38 mg/dL (7-17); Carbon Dioxide 36 mmol/L (22-32); Estimated Glomerular Filt Rate 41 mL/min (>60); HEMOLYSIS 21 (0-50)
[2024-09-21 05:45] LABS: Calcium 10.7 mg/dL (8.4-10.2); Chloride 96 mmol/L (98-107); Glucose 120 mg/dL (80-110); Magnesium 2.1 mg/dL (1.6-2.3); Potassium 3.7 mmol/L (3.4-5.1); Sodium 134 mmol/L (137-145)
--- NOTE | 2024-09-21 05:58 | PC.NURSE ---
Poultry Culler Note-Patient was on 3L NC most of the night, only had tachypnea during activity. Intermittent wheezing treated with nebs tx. Agreed to wear Bipap for few hours, medicated with PO Ativan and minimal Precedex 0.2mcg/kg/hr. SR with frequent PACs and intermittent trigeminal PVCs.
[2024-09-21] MEDS: BUDESONIDE 0.5 MG/2 ML NEB INH ×2 (07:44→20:10)
[2024-09-21] MEDS: ALBUTEROL 2.5 MG/3 ML NEB (ADULT) INH ×4 (07:44→20:09)
--- NOTE | 2024-09-21 08:06 | CM.DANOTE ---
Initial DCP Assessment Visit Note Late Entry: Visit was 09/20/24 Reviewed EMR and team rounds for status updates. Pt was found to be very SOB, appearing very tired, and was not able to communicate without significant difficulty due to exertion w/speaking. Pt resides in her own home modified independently with use of a cane, and uses a scooter when going to medical appointments. Pt has 2-local sons and a dtr in [place] who are all able to assist her when needed. She shares that one of her sons will come to transport her once she's medically cleared for home d/c. Payor: Medicare PCP: Deb Martin Pt is a 79 year-old F with a hx of COPD, is an active smoker, and is on 3LO2 at night, and at least 1-L during the day at baseline. She states that she's had worsening SOB with exertion, and a productive cough for several weeks. She showed a chest CT OP recently which showed an incidental lung nodule, and was encouraged to f/u OP for further evaluation for this. She was also given a course of Amoxicillin with no benefit. Chest x-ray at that time was negative for pneumonia. In the ED, it was questionable whether or not it was positive for pneumonia, however she was given a dose of IV Levaquin and a breathing tx with good improvement. ED dx includes: COPD exacerbation, mild CHF exacerbation, chronic respiratory failure w/hypoxia, and was started on IV diuresis. DCP will continue to monitor for final d/c needs, depending on her improvement, she will likely need Home Health post discharge. Discharge Planning/Care Management CM Discharge Assessment Start: 09/21/24 07:58 Freq: Status: Active Protocol: Document 09/21/24 07:58 DPL (Rec: 09/21/24 08:06 DPL [id number]) Discharge Planning Assessment Assigned Gear Shaper ADEOLA Chu Advance Directives? Yes: DPOA For Health Care; Living Will/Directive To Physicians; POL Advance Directives on File Yes History Provided By Patient,Medical Record Prior Living Arrangements House Household Members children,other Type of transporation used prior to Relies on Others admit Independent with ADL's No: modified independent w/son 's assistance Is patient alert and oriented? Yes Needs Assistance With Home Chores / Shopping Caregiver for Another No Community Services used prior to Oxygen Therapy admission: Comment Pt is on 3LO2 at baseline. DME Already Rented / Owned FWW / Walker,Oxygen Comment No identified home d/c needs at this time. Monitoring for final recs. Barriers to Discharge No Discharge Plan Home Community Services Oxygen Therapy Referrals Initiated None needed Whiteboard Updated in Patient Room with Yes name and ext. # of Gear Shaper Review Status In Process Please Provide Date Initial DC 09/21/24 Assessment Was Performed
[2024-09-21] MEDS: HEPARIN 5,000 UNIT/ML VIAL 5000 UNIT SUBCUT ×2 (08:22→20:19)
[2024-09-21] MEDS: NICOTINE 21 MG PATCH TOP (08:22)
[2024-09-21] MEDS: PANTOPRAZOLE DR 20 MG TABLET PO (08:24)
[2024-09-21] MEDS: predniSONE 20 MG TABLET 40 MG PO (08:24)
[2024-09-21] MEDS: METOPROLOL ER 50 MG TABLET PO ×2 (08:24→20:19)
[2024-09-21] MEDS: cloNIDine 0.1 MG TABLET PO ×2 (08:25→20:20)
[2024-09-21] MEDS: LORATADINE 10 MG TABLET PO (08:25)
[2024-09-21] MEDS: ISOSORBIDE MONONITRATE ER 30 MG TABLET PO ×2 (08:25→20:19)
[2024-09-21] MEDS: OXYCODONE IR 5 MG TABLET PO ×2 (08:37→20:19)
[2024-09-21] MEDS: LORazepam 0.5 MG TABLET PO ×2 (08:37→20:20)
--- NOTE | 2024-09-21 09:19 | OT.IP.TRT ---
Current Diagnoses Chronic obstructive pulmonary disease with (acute) exacerbation (09/19/24) Occupational Therapy Treatment Note M2 OT-IP Current Condition Start: 09/20/24 13:23 Freq: Status: Active Protocol: Document 09/20/24 13:23 CGR (Rec: 09/20/24 13:44 CGR [id number]) Occupational Therapy Current Condition Current Condition Evaluation Date 09/20/24 Treatment Diagnosis COPD exacerbation, Mild CHF Diagnosis Onset Date 09/19/24 M3 OT- IP Subjective and Pain Start: 09/20/24 13:23 Freq: Status: Active Protocol: Document 09/21/24 11:43 CGR (Rec: 09/21/24 11:51 CGR [id number]) OT- Subjective Occupational Therapy Visit Type Type Treatment Note Visit Start Time 09:00 Visit Stop Time 09:19 Notes This assembly instructions writer dropped off the energy conservation handout yesterday. Pt states she read it and it was helpful and would like to discuss more on Tuesday. OT Pain Assessment Pain When Pain Assessed At Rest Pain Present Pain Present Denied Pain M4 OT- IP ADL's Start: 09/20/24 13:23 Freq: Status: Active Protocol: Document 09/21/24 11:43 CGR (Rec: 09/21/24 11:51 CGR [id number]) OT [id number] Comments OT Self-Feeding Comments not meal time but nursing states she ate breakfast this morning. OT ADL-Grooming Comments OT Grooming Comments not performed d/t fatigue OT ADL-Oral Care Comments Oral Care Comments not performed d/t fatigue OT ADL-Dressing General Eval Lower Body Dressing Ability Standby Assistance Areas Needing Assistance Shoes Comments OT Dressing Comments slip on shoes OT ADL-Toileting General Evaluation Toileting Ability Standby Assistance Devices Toileting Assistive Devices Commode Comments OT Toileting Comments BSC OT ADL-Bathing Comments OT Bathing Comments not performed d/t fatigue M5 OT- IP IADL's Start: 09/20/24 13:23 Freq: Status: Active Protocol: Document 09/20/24 13:23 CGR (Rec: 09/20/24 13:44 CGR [id number]) OT-Instrumental Activities of Daily Living Deficits IADL Deficits Identified No Deficits Home Safety Awareness Awareness of Need for Assistance at Home Good Awareness Ability to Problem Solve Emergency Able to Problem Solve Situations Medication Management Medication Management No Deficits Identified Money Management Money Management No Deficits Identified Meal Preparation Meal Preparation Caregiver Provides Assist Soft Boarder Soft Boarder Caregiver Provides Assist Driving Driving Comments Pt does not drive. M6 OT- IP Functional Cognition Start: 09/20/24 13:23 Freq: Status: Active Protocol: Document 09/20/24 13:23 CGR (Rec: 09/20/24 13:44 CGR [id number]) Cognitive Factors Limiting Selfcare Function Cognitive Ability Level of Alertness Alert Patient Orientation Name,Age,Birthday,Month,Date, Year,Day of Week,Place, Situation Attention Span Ability Capable of Focused Attention, Capable of Sustained Attention OT- Vision and Hearing OT- Hearing Assessment OT- Hearing Assessment WFL OT- Vision Assessment Visual Acuity Glasses All The Time Visual Attentiveness WFL Occular Pursuits WFL Visual Convergence WFL M7 OT- IP Mobility and Balance Start: 09/20/24 13:23 Freq: Status: Active Protocol: Document 09/21/24 11:43 CGR (Rec: 09/21/24 11:51 CGR [id number]) OT- Bed Mobility Assessment Supine to Sit Supine to Sit Assist Contact Guard Assistance Sit to Supine Sit to Supine Assist Contact Guard Assistance Scooting Scooting to Edge of Bed Contact Guard Assistance OT-Transfer Assessment Sit to and From Stand Sit to and from Stand Contact Guard Assistance,1 Person Assistance Transfers Transfer Ability Contact Guard Assistance,1 Person Assistance Technique Transfer Destination Bed,Bedside Commode Transfer Technique Stand Step Pivot Devices Transfer Assistive Devices Gait Belt Comments Mobility Comments Pt transfered to [facility] without AD and uses SPC for returning to bed. Pt with significant breathing difficulty with any activity. OT- Gait Assessment Comments Gait Ability Comments not performed d/t fatigue OT- Balance Assessment Sitting Balance and Reactions Static Sitting Balance Ability Good Dynamic Sitting Balance Ability Good M8 OT- IP Objective Assessments Start: 09/20/24 13:23 Freq: Status: Active Protocol: Document 09/20/24 13:23 CGR (Rec: 09/20/24 13:44 CGR [id number]) OT Gross Range of Motion Upper Extremity Range of Motion Assessment Within Functional Limits OT Strength Comments Strength Comments not tested d/t dyspnea OT- Coordination Assessment Upper Extremity Finger to Nose Test Within Functional Limits Finger Tapping Test Within Functional Limits OT-Muscle Tone Assessment Muscle Tone WNL Yes OT Sensation Assessment Edema Edema Absent M9 OT- IP Assessment and Plan Start: 09/20/24 13:23 Freq: Status: Active Protocol: Document 09/21/24 11:43 CGR (Rec: 09/21/24 11:51 CGR [id number]) OT Summary Assessment and Plan Potential Rehabilitation Potential Good Analytic Complexity at Evaluation Low Summary OT Impairments Functional Mobility,Grooming, Dressing,Toileting,Bathing, Toilet Transfers,Shower Transfers,Activity Tolerance Progress Towards Goals Slow Progress due to Activity Tolerance Assessment Summary Pt presents as a low complexity evaluation s/p admit for dyspnea. Pt is significantly labored in breathing after minimal activity and requires significant time to catch her breath. Pt initially wanted to discuss energy conservation today but requested to go to the [facility] and was so fatigued after the activity that she requests to discuss on Tuesday when this assembly instructions writer returns. Pt will benefit from energy conservation education and increased activity tolerance. Goals Grooming Goal Independent Dressing Goal Independent Toileting Goal Independent Bathing Goal Independent Toilet Transfer Goal Independent Shower Transfer Goal Independent Days to Meet Goals 10 Frequency of Treatment Other frequency 5x per week. Treatment Plan OT Treatment Plan ADL Training,Functional Mobility,Patient/Family Education,Discharge Planning Other Treatment Recommendations and Next energy conservation education. Treatment Focus Discharge Recommendations OT Discharge Recommendations Home with Assistance Transportation Needs at Discharge Private Vehicle
--- NOTE | 2024-09-21 11:31 | PM.PN.1 ---
Subjective Subjective Interval history: 79 year old female admitted with acute respiratory failure and COPD exacerbation. She is on less than her usual amount of oxygen this morning, still with cough but improved dyspnea. Last night she was very tachypnic, required bipap overnight and precedex infusion to tolerate in the ICU. Given improvement in breathing today and her appearance, she is stable for regular floor again. Exam Vital Signs (past 8 hours): - 09/21/24 04:00 09/21/24 04:01 09/21/24 04:01 Temperature Pulse Rate 63 63 Respiratory Rate 16 16 Blood Pressure 138/65 Pulse Oximetry 98 98 Oxygen Delivery Method Oxygen Flow Rate 09/21/24 04:30 09/21/24 05:00 09/21/24 05:00 Temperature Pulse Rate 63 65 Respiratory Rate 18 27 H Blood Pressure Pulse Oximetry 97 95 Oxygen Delivery Method Nasal Cannula Oxygen Flow Rate 09/21/24 05:01 09/21/24 05:01 09/21/24 05:30 Temperature Pulse Rate 67 62 Respiratory Rate 36 H 16 Blood Pressure 147/65 H Pulse Oximetry 96 97 Oxygen Delivery Method Oxygen Flow Rate 09/21/24 06:00 09/21/24 06:01 09/21/24 06:01 Temperature Pulse Rate 62 62 Respiratory Rate 18 16 Blood Pressure 133/61 Pulse Oximetry 97 97 Oxygen Delivery Method Oxygen Flow Rate 09/21/24 06:30 09/21/24 07:00 09/21/24 07:00 Temperature Pulse Rate 63 67 Respiratory Rate 18 28 H Blood Pressure 144/106 H Pulse Oximetry 97 96 Oxygen Delivery Method Oxygen Flow Rate 09/21/24 07:30 09/21/24 07:44 09/21/24 08:00 Temperature Pulse Rate 71 76 73 Respiratory Rate 32 H 30 H 33 H Blood Pressure Pulse Oximetry 97 96 96 Oxygen Delivery Method Nasal Cannula Oxygen Flow Rate 3 09/21/24 08:00 09/21/24 08:01 09/21/24 08:01 Temperature 98.7 F Pulse Rate 74 Respiratory Rate 26 H Blood Pressure 175/85 H Pulse Oximetry 97 Oxygen Delivery Method Oxygen Flow Rate 09/21/24 08:24 09/21/24 08:25 09/21/24 08:30 Temperature Pulse Rate 92 H 92 H 88 Respiratory Rate 39 H Blood Pressure 175/85 H 175/85 H Pulse Oximetry 93 Oxygen Delivery Method Oxygen Flow Rate 09/21/24 09:00 09/21/24 09:00 09/21/24 09:00 Temperature Pulse Rate 85 82 Respiratory Rate 33 H Blood Pressure 144/108 H Pulse Oximetry 94 Oxygen Delivery Method Nasal Cannula Oxygen Flow Rate 09/21/24 09:01 09/21/24 09:01 09/21/24 09:16 Temperature Pulse Rate 82 Respiratory Rate 40 H Blood Pressure 173/111 H 144/108 H Pulse Oximetry 94 Oxygen Delivery Method Oxygen Flow Rate 09/21/24 09:16 09/21/24 09:30 09/21/24 10:00 Temperature Pulse Rate 89 81 73 Respiratory Rate 29 H 18 16 Blood Pressure Pulse Oximetry 96 94 95 Oxygen Delivery Method Oxygen Flow Rate 09/21/24 10:01 09/21/24 10:01 09/21/24 10:30 Temperature Pulse Rate 72 75 Respiratory Rate 15 19 Blood Pressure 93/49 L Pulse Oximetry 96 96 Oxygen Delivery Method Oxygen Flow Rate 09/21/24 10:55 09/21/24 10:55 09/21/24 11:00 Temperature Pulse Rate 75 75 Respiratory Rate 21 19 Blood Pressure 107/51 L Pulse Oximetry 97 97 Oxygen Delivery Method Oxygen Flow Rate 09/21/24 11:00 Temperature Pulse Rate Respiratory Rate Blood Pressure 105/52 L Pulse Oximetry Oxygen Delivery Method Oxygen Flow Rate Fraction of Inspired Oxygen 28 Oxygen Delivery Method Nasal Cannula Oxygen Flow Rate 3 Narrative Exam Narrative: GENERAL: The patient is not in any acute distress. Awake and alert. HEENT: Nonicteric sclerae, PERRLA, EOMI. Oropharynx clear. MMM today. Conjunctivae appear well perfused. HEART: Regular rate and rhythm without murmurs. No lower extremities edema. LUNGS: slight diffuse wheezing, improved from yesterday. ABDOMEN: Soft, positive bowel sounds, nontender. SKIN: No rash, no excessive bruising, petechiae, or purpura. NEUROLOGIC: AxO x 3. Cranial nerves II-XII intact without motor/sensory deficit. Objective Labs 09/21/24 04:25 09/21/24 04:25 Labs: Laboratory Results - last 24 hr 09/20/24 09/20/24 09/21/24 14:25 14:26 04:25 WBC 11.3 H 8.7 RBC 4.68 4.22 Hgb 15.8 14.2 Hct 47.2 H 42.6 MCV 100.9 H 100.8 H MCH 33.9 33.7 MCHC 33.6 33.4 RDW 13.5 13.2 Plt Count 152 129 L Neut % (Auto) 93.2 H 79.8 H Lymph % (Auto) 3.5 L 9.4 L [place] % (Auto) 2.7 L 10.0 Eos % (Auto) 0.1 L 0.4 L Baso % (Auto) 0.5 0.4 Neut # (Auto) 96646 H 6900 Lymph # (Auto) 400 L 800 L [place] # (Auto) 300 900 Eos # (Auto) 0 0 Baso # (Auto) 100 0 VBG pH 7.41 VBG pCO2 59.6 H VBG pO2 62 H VBG HCO3 38 H VBG Total CO2 39 H VBG O2 Saturation 91 H VBG Base Excess 10.1 H Sodium 136 L 134 L Potassium 4.4 3.7 Chloride 97 L 96 L Carbon Dioxide 35 H 36 H BUN 31 H 38 H Creatinine 1.27 H 1.32 H Estimated GFR 43 L 41 L BUN/Creatinine Ratio 24.4 H 28.8 H Glucose 294 H 120 H D Calcium 11.0 H 10.7 H Magnesium 1.9 2.1 PFSH Medical History GERD (gastroesophageal reflux disease) Skin lesion of back Hyperlipidemia Coronary artery disease Tobacco dependency Diabetes type 2, controlled Diabetes COPD (chronic obstructive pulmonary disease) Surgical History History of bilateral inguinal hernia repair History of bowel resection History of coronary artery bypass graft Family History Mother Hypertension Father Heart disease Grandmother Diabetes mellitus Grandfather Cancer Social History household members: children and other Smoking Status: Current every day smoker alcohol intake: never Assessment & Plan Assessment & Plan narrative: COPD w/ exacerbation. - changed IV solumedrol to oral prednisone, continue 40 mg daily. - improving dyspnea, but required BiPAP overnight yesterday and changed to ICU. Will continue to monitor today now off bipap okay for regular floor status. - sputum culture pending. - PT / OT to continue, recommending home with assistance. Possible acute on chronic diastolic heart failure. - s/p IV Lasix in ER though patient appeared dehydrated after. Cr slightly up again today again. - Continue to hold home furosemide today. - probnp elevation likely due to chronic atrial dilatation from underlying COPD. Hypercalcemia - mild with calcium 11.1, likely slight dehydration. Improved to 10.7 today holding furosemide. - continue to follow. Elevated creatinine - unknown baseline Cr currently. 1.32 today, likely elevated due to diuresis. - hold furosemide as above - continue to follow BMP. Chronic respiratory failure with hypoxia. - titrate oxygen to 89-96% while on supplemental therapy, down to 1L today. Incidental lung nodule 1.5cm. Follow up with repeat imaging as reccomended in 3 months. Hyperlipidemia resume Home statin. Dependent diabetes insulin. Continue home glargine 35 U nightly, sliding scale. DVT prophylaxis heparin sub Code status is full code. Disosition, likely home in 1-2 more days. I spent 30 minutes providing critical care management this patient. This excludes time spent in performing separately billed procedures. Time-Based Coding :: [TOTAL MINUTES] spent with patient and on the chart (including review of chart, obtaining history, exam, reviewing outside data, placing orders, documenting exam and treatment plan, and counseling patient) on [DATE]. Quality VTE Deep Vein Thrombosis/Pulmonary Embolism Present on Admission: No
--- NOTE | 2024-09-21 13:16 | PT-IP ANOTE ---
PT attempted to see pt at 1315. Pt is supine in bed. Pt declines to participate in PT at this time, states that she just got up and is now finally back in bed; she just wants to eat her lunch and is too tired right now. Therapy will follow up with pt if time permits.
--- NOTE | 2024-09-21 13:34 | PT-IP ANOTE ---
STRUCTURAL METAL FABRICATOR APPRENTICE attempted to work with pt for PT treatment at 1330. Pt was elevate in bed and stated was out of bed with staff using the commode and to tired to work with therapy. STRUCTURAL METAL FABRICATOR APPRENTICE provided education on benefits of continued mobility with nursing and therapies for progression of mobility strength with every opportunity toward her goal/plan to return home. Pt verbalized understanding, I am just to tired right now and don't have the energy to get up again. Pt asked for STRUCTURAL METAL FABRICATOR APPRENTICE to return tomorrow, did not participate today. Will continue to assess progress tomorrow.
[2024-09-21] MEDS: INSULIN LISPRO 100 UNIT/ML 3ML VIAL SUBCUT (14:58)
[2024-09-21] MEDS: levoFLOXacin 250 MG/50 ML PIGGYBACK 50 MG IV (20:21)
[2024-09-21] MEDS: EZETIMIBE 10 MG TABLET PO (21:32)
[2024-09-21] MEDS: INSULIN GLARGINE 100 UNIT/ML 3ML PEN 35 UNIT SUBCUT (21:32)
[2024-09-21] MEDS: ASPIRIN EC 81 MG TABLET PO (21:32)
[2024-09-21] MEDS: ATORVASTATIN 20 MG TABLET 80 MG PO (21:32)
[2024-09-22] VITALS (55 sets, daily range): BP systolic 130–202; BP diastolic 64–93; PULSE 66–107; RESP 14–83; TEMP 31–37; O2SAT 86–98
[2024-09-22 05:20] LABS: Add Manual Diff / Slide Review NO; Basophils Absolute Auto 100 /uL (0-100); Basophils Percent Auto 0.9 % (0-2); Eosinophils Absolute Auto 100 /uL (0-450); Eosinophils Percent Auto 0.6 % (2-4); Hematocrit 43.3 % (36-46); Hemoglobin 14.6 g/dL (12.0-16.0); Lymphocytes Absolute Auto 900 /uL (1100-4500); Lymphocytes Percent Auto 9.5 % (25-40); Mean Corpuscular HGB Conc 33.8 % (30-36); Mean Corpuscular Hemoglobin 33.9 PG (26-34); Mean Corpuscular Volume 100.3 fL (80-100); Monocytes Absolute Auto 900 /uL (0-900); Monocytes Percent Auto 9.2 % (3-14); Neutrophils Absolute Auto 8000 /uL (1500-7000); Neutrophils Percent Auto 79.8 % (50-75); Platelet Count 148 X10^3/uL (150-400); Red Blood Cell Count 4.32 X10^6/uL (4.0-5.2); Red Cell Distribution Width 13.2 % (11.6-14.8)
[2024-09-22 05:37] LABS: BUN Creatinine Ratio 29.3 (6-22); Blood Urea Nitrogen 34 mg/dL (7-17); Calcium 10.9 mg/dL (8.4-10.2); Carbon Dioxide 38 mmol/L (22-32); Chloride 98 mmol/L (98-107); Estimated Glomerular Filt Rate 48 mL/min (>60); Glucose 101 mg/dL (80-110); HEMOLYSIS < 15 (0-50); Magnesium 2.3 mg/dL (1.6-2.3); Potassium 3.7 mmol/L (3.4-5.1); Sodium 136 mmol/L (137-145)
--- NOTE | 2024-09-22 05:46 | PC.NURSE ---
Shelter Director Note-Per RT recommendation d/t to shortness of breath and desateration with activity, patient was placed on Bipap. Patient agreeable, wore for 5 hours, tolerated well, PO Ativan given along with oxycodone for back pain.
[2024-09-22] MEDS: LORazepam 0.5 MG TABLET PO ×2 (07:00→21:55)
--- NOTE | 2024-09-22 07:33 | EKG_ITS ---
[place] [id number] [address] [place] [id number] Test Date: 2024-09-22 Pat Name: Angie Swartz Department: [facility] Room: 228 Gender: Female Office Manager Receptionist: [place] : [id number] Requested By: Order Number: [id number] Reading MD: John Pat Measurements Intervals [place] Rate: 78 P: 56 HI: 98 QRS: 72 QRSD: 82 T: 117 QT: 316 QTc: 360 Interpretive Statements Sinus rhythm with short HI with frequent premature ventricular complexes Septal infarct , age undetermined Electronically Signed On 09-22-2024 15:34:13 PST by John Pat
[2024-09-22] MEDS: BUDESONIDE 0.5 MG/2 ML NEB INH ×2 (07:39→19:31)
[2024-09-22] MEDS: ALBUTEROL 2.5 MG/3 ML NEB (ADULT) INH ×3 (07:39→19:31)
[2024-09-22] MEDS: predniSONE 20 MG TABLET 40 MG PO (09:17)
[2024-09-22] MEDS: NICOTINE 21 MG PATCH TOP (09:17)
[2024-09-22] MEDS: METOPROLOL ER 50 MG TABLET PO ×2 (09:17→20:05)
[2024-09-22] MEDS: HEPARIN 5,000 UNIT/ML VIAL 5000 UNIT SUBCUT ×2 (09:17→20:00)
[2024-09-22] MEDS: LORATADINE 10 MG TABLET PO (09:18)
[2024-09-22] MEDS: FUROSEMIDE 40 MG TABLET PO ×2 (09:18→16:53)
[2024-09-22] MEDS: ISOSORBIDE MONONITRATE ER 30 MG TABLET PO ×2 (09:18→20:05)
[2024-09-22] MEDS: cloNIDine 0.1 MG TABLET PO ×2 (09:18→20:00)
[2024-09-22] MEDS: PANTOPRAZOLE DR 20 MG TABLET PO (09:18)
--- NOTE | 2024-09-22 10:43 | PT-IP ANOTE ---
Pt refused PT this morning. She reports just getting back to bed and would like to rest. PT may attempt to see later today.
--- NOTE | 2024-09-22 12:26 | CM.DPC ---
DCP HH Planning: Per MD, pt remains on oxygen and had bipap overnight and making some medication changes today and pt not yet stable for discharge and might need new home oxygen at d/c depending on progress. SW met bedside with pt and explained role and discussed PT recommendation of family assist and HH. Pt confirms she has no hx of HH and SW explained services and frequency and pt agreeable with HH referral and provided the HH Choice list and no preference. SW made [facility] referral based on Vendor Calendar and they are reviewing for likely HH RN/PT to start and F2F completed but not sent yet. Plan: SW to [facility] for plan of home with son and DIL assist and new [facility] referral made. SW to confirm [facility] can accept and to send F2F, HH orders, and d/c summ at discharge. ADEOLA Melvin
--- NOTE | 2024-09-22 13:05 | PT.IPTN ---
Current Diagnoses Chronic obstructive pulmonary disease with (acute) exacerbation (09/19/24) Physical Therapy Treatment Note M2 PT-IP Current Condition Start: 09/20/24 09:04 Freq: NEEDED Status: Active Protocol: Document 09/20/24 10:43 MB (Rec: 09/20/24 11:14 MB [id number]) Physical Therapy Current Condition Current Condition Evaluation Date 09/20/24 Treatment Diagnosis COPD exacerbation, SOB M3 PT-IP Subjective Start: 09/20/24 09:04 Freq: NEEDED Status: Active Protocol: Document 09/22/24 13:05 AB (Rec: 09/22/24 14:08 AB [id number]) Subjective Physical Therapy Visit Type Type Treatment Note Visit Start Time 13:05 Visit Stop Time 13:25 Number of NATIONAL BUSINESS DIRECTOR Visits 0 Physical Therapy Visit Comments Patient Comments agreeable to do PT M4 PT-IP Mobility and Gait Start: 09/20/24 09:04 Freq: NEEDED Status: Active Protocol: Document 09/22/24 13:05 AB (Rec: 09/22/24 14:08 AB [id number]) PT-Bed Mobility Assessment Sit to Supine Sit to Supine Standby Assistance,Head of Bed Elevated,Bedrails PT-Transfer Assessment Sit to and From Stand Sit to and from Stand Standby Assistance,Contact Guard Assistance,1 Person Assistance,Use of Upper Extremities Equipment Transfer Assistive Device Gait Belt,Front Wheeled Walker Orthotic/Prosthetic Devices or Brace: No Transfers Transfer Destination Bed Transfer Technique Stand Step Pivot Transfer Ability Level of Assist Standby Assistance,1 Person Assistance,Use of Upper Extremities Comments Mobility Comments pt sitting on bedside commode. agreed to do ambulation after using the commode. pt refused to use a FWW. stated that she does not need it. pt completed sit to stand from the bedside commode CGA and step transfer to the bed without AD SBA. (+) SOB. cued for PLB. O2 sat with 3L/ min O2: 88%. increased to 92% after PLB. pt rested for a few more minuted. completed sit to stand from the EOB SBA and ambulated in room using SPC SBA to CGA ~ 20 ft. pt tends to reach for wall/door for support. pt sat on EOB. ( +) SOB. O2 sat: 88%. pt needing increase time to rest. pt refused further ambulation and wants to lay back in bed. sit to supine SBA. continues to have SOB. O2 sat: 86%. cued for PLB. pt needed ~ 2-3 minutes to get O2 sat back up to 90%. positioned pt on the bed. call light and table placed within reach. Gait Assessment Gait Gait Assistance Required: Standby Assistance,Contact Guard Assist Distance (Feet) 20 Able to Maintain Weight Bearing Status Yes During Gait Assistive Devices Assistive Device Straight Cane Orthotic/Prosthetic Devices or Brace: No Gait Deviations General Gait Pattern Decreased Stride Length, Decreased Feet Clearance,Step- to Gait Factors Limiting Gait Function Factors Limiting Gait Function Decreased Activity Tolerance, Decreased Strength,Poor Balance,Poor Safety Awareness, Respiratory Distress M5 PT-IP Objective Assessments Start: 09/20/24 09:04 Freq: NEEDED Status: Active Protocol: Document 09/20/24 10:43 MB (Rec: 09/20/24 11:14 MB [id number]) Orientation Orientation/Cognition Level of Alertness Alert Orientation Name,Age,Birthday,Month,Date, Place,Situation Language Function Ability No Deficits Noted Safety Awareness Decreased Safety Awareness Memory Description No Deficits Noted Gross Range of Motion Upper Extremity ROM Impairments Defer to OT Lower Extremity ROM Impairments Decreased hip extension noted in postural changes, functional mobility in stooped posture presentation Strength Comments Strength Comments See ROM comments for LEs Coordination Assessment Assessment Coordination Comments Slow and effort-full mobility and tasks Sensation Assessment Comments Sensation Comments Did not test Muscle Tone Muscle Tone WNL Yes M6 PT-IP Treatment Start: 09/20/24 09:04 Freq: NEEDED Status: Active Protocol: Document 09/22/24 13:05 AB (Rec: 09/22/24 14:08 AB [id number]) Physical Therapy Treatment Education Education Provided Safety M7 PT-IP Assessment and Plan Start: 09/20/24 09:04 Freq: NEEDED Status: Active Protocol: Document 09/22/24 13:05 AB (Rec: 09/22/24 14:08 AB [id number]) PT Summary Assessment and Plan Potential Rehabilitation Potential Fair Summary Impairments Pain,ROM,Strength,Balance, Coordination,Sensation,Tone, Cognition,Bed Mobility, Transfers,Gait,Activity Tolerance Assessment Summary pt requiring SBA to CGA wtih mobility/ambulation using SPC but with decrease activity tolerance and was only able to ambulate ~ 20 ft. pt with (+) SOB and O2 sat decreases to 86-88% with activity. pt needing frequent and increase breaks in between tasks. pt plans to go home with her son to assist her. will continue to assess pt's progress. pt will benefit from HHPT. Goals Bed Mobility Goal Independent Transfer Goal Standby Assistance,Cane,Front Wheeled Walker,Four Wheeled Walker Gait Goal Standby Assistance,Cane,Front Wheel Walker,Four Wheel Walker Gait Distance 50 Other Goals Pt will ascend and descend 3 steps with left rail and LRAD (likely cane) and no more than CGA to allow safe home entry. LRAD training if SPC is not appropriate: RW vs 4WRW given pulmonary presentation Days to Meet Goals 5 Frequency of Treatment Frequency Of Treatment Once a Day Treatment Plan Physical Therapy Treatment Plan Bed Mobility Training,Transfer Training,Gait Training, Therapeutic Exercise,Balance Retraining,Discharge Planning, Hot or Cold Pack,Neuromuscular Re-ed,Coordination Retraining ,Manual Therapy Precautions Other Precautions O2 sat Recommendations To Nursing Amount of Assist Needed 1 Person Assist Discharge Recommendations PT Discharge Recommendations Home with 16/05 Assist Available,Home Health Transportation Needs at Discharge Private Vehicle
--- NOTE | 2024-09-22 14:13 | P.PN_ITS ---
Subjective Subjective Interval history: 79 year old female admitted with acute respiratory failure and COPD exacerbation. She is still on some supplemental oxygen. She gets very anxious moving around, hyperventilates, and feels very short of breath. She was briefly on bipap this morning, now off again and appears comfortable. Exam Vital Signs (past 8 hours): - 09/22/24 07:00 09/22/24 07:39 09/22/24 08:00 Temperature 97.4 F L Pulse Rate 73 83 Respiratory Rate 22 26 H Blood Pressure 173/93 H Pulse Oximetry 95 90 L Oxygen Delivery Method Nasal Cannula Nasal Cannula Oxygen Flow Rate 3 3 Fraction of Inspired Oxygen 32 09/22/24 09:17 09/22/24 09:18 09/22/24 09:47 Temperature Pulse Rate 85 85 80 Respiratory Rate Blood Pressure 173/93 H 173/93 H 168/82 H Pulse Oximetry Oxygen Delivery Method Oxygen Flow Rate Fraction of Inspired Oxygen 09/22/24 13:49 Temperature 96.7 F L Pulse Rate 92 H Respiratory Rate 28 H Blood Pressure 130/87 Pulse Oximetry 94 Oxygen Delivery Method Oxygen Flow Rate 3 Fraction of Inspired Oxygen Fraction of Inspired Oxygen 32 SaO2/FiO2 Ratio 296 Oxygen Delivery Method Nasal Cannula Oxygen Flow Rate 3 Narrative Exam Narrative: GENERAL: The patient is not in any acute distress. Awake and alert. HEENT: Nonicteric sclerae, PERRLA, EOMI. Oropharynx clear. MMM today. Conjunctivae appear well perfused. HEART: Regular rate and rhythm without murmurs. No lower extremities edema. LUNGS: slight diffuse wheezing, improved from yesterday. ABDOMEN: Soft, positive bowel sounds, nontender. SKIN: No rash, no excessive bruising, petechiae, or purpura. NEUROLOGIC: AxO x 3. Cranial nerves II-XII intact without motor/sensory deficit. Objective Labs 09/22/24 04:23 09/22/24 04:23 Labs: Laboratory Results - last 24 hr 09/22/24 04:23 WBC 10.0 RBC 4.32 Hgb 14.6 Hct 43.3 MCV 100.3 H MCH 33.9 MCHC 33.8 RDW 13.2 Plt Count 148 L Neut % (Auto) 79.8 H Lymph % (Auto) 9.5 L [place] % (Auto) 9.2 Eos % (Auto) 0.6 L Baso % (Auto) 0.9 Neut # (Auto) 8000 H Lymph # (Auto) 900 L [place] # (Auto) 900 Eos # (Auto) 100 Baso # (Auto) 100 Sodium 136 L Potassium 3.7 Chloride 98 Carbon Dioxide 38 H BUN 34 H Creatinine 1.16 H Estimated GFR 48 L BUN/Creatinine Ratio 29.3 H Glucose 101 Calcium 10.9 H Magnesium 2.3 PFSH Medical History GERD (gastroesophageal reflux disease) Skin lesion of back Hyperlipidemia Coronary artery disease Tobacco dependency Diabetes type 2, controlled Diabetes COPD (chronic obstructive pulmonary disease) Surgical History History of bilateral inguinal hernia repair History of bowel resection History of coronary artery bypass graft Family History Mother Hypertension Father Heart disease Grandmother Diabetes mellitus Grandfather Cancer Social History household members: children and other Smoking Status: Current every day smoker alcohol intake: never Assessment & Plan Assessment & Plan narrative: COPD w/ exacerbation. - changed IV solumedrol to oral prednisone, continue 40 mg daily. - improving dyspnea, but required BiPAP overnight yesterday and changed to ICU. Briefly back on bipap this morning for tachypnea. Dyspnea is complicated by severe anxiety with ambulation. - sputum culture pending. - PT / OT to continue, recommending home with assistance. - CTA negative for PE. Does show emphesematous changes. Possible acute on chronic diastolic heart failure. - s/p IV Lasix in ER though patient appeared dehydrated after. Cr slightly up again today again. - Will resume home furosemide today. - probnp elevation likely due to chronic atrial dilatation from underlying COPD. Hypercalcemia - mild with calcium 11.1, likely slight dehydration. Essentially stable the last few days. - continue to follow. Elevated creatinine - unknown baseline Cr currently. 1.16 today - held furosemide as above, monitor with resumption of furosemide today. - continue to follow BMP. Acute on Chronic respiratory failure with hypoxia. - titrate oxygen to 89-96% while on supplemental therapy. Incidental lung nodule 1.5cm. Follow up with repeat imaging as reccomended in 3 months. Hyperlipidemia resume Home statin. Dependent diabetes insulin. Continue home glargine 35 U nightly, sliding scale. DVT prophylaxis heparin sub Code status is full code. Disosition, likely home in 1-2 more days. I spent 30 minutes providing critical care management this patient. This excludes time spent in performing separately billed procedures. Time-Based Coding :: [TOTAL MINUTES] spent with patient and on the chart (including review of chart, obtaining history, exam, reviewing outside data, placing orders, documenting exam and treatment plan, and counseling patient) on [DATE]. Quality VTE Deep Vein Thrombosis/Pulmonary Embolism Present on Admission: No
[2024-09-22] MEDS: CODEINE/GUAIFENESIN LIQUID 5ML UDC 10 ML PO (20:00)
[2024-09-22] MEDS: ASPIRIN EC 81 MG TABLET PO (20:00)
[2024-09-22] MEDS: levoFLOXacin 250 MG/50 ML PIGGYBACK 50 MG IV (20:05)
[2024-09-22] MEDS: ATORVASTATIN 20 MG TABLET 80 MG PO (21:54)
[2024-09-22] MEDS: INSULIN GLARGINE 100 UNIT/ML 3ML PEN 35 UNIT SUBCUT (21:55)
[2024-09-22] MEDS: EZETIMIBE 10 MG TABLET PO (21:55)
[2024-09-22] MEDS: OXYCODONE IR 5 MG TABLET PO (21:55)
[2024-09-23] VITALS (28 sets, daily range): BP systolic 121–154; BP diastolic 56–81; PULSE 71–96; RESP 16–40; TEMP 31–36.9; O2SAT 90–97
[2024-09-23] MEDS: OXYCODONE IR 5 MG TABLET PO ×2 (04:21→20:38)
[2024-09-23] MEDS: LORazepam 0.5 MG TABLET PO ×2 (04:21→21:40)
[2024-09-23 05:30] LABS: Add Manual Diff / Slide Review NO; Basophils Absolute Auto 0 /uL (0-100); Basophils Percent Auto 0.4 % (0-2); Eosinophils Absolute Auto 100 /uL (0-450); Eosinophils Percent Auto 0.6 % (2-4); Hematocrit 44.4 % (36-46); Hemoglobin 14.9 g/dL (12.0-16.0); Lymphocytes Absolute Auto 800 /uL (1100-4500); Lymphocytes Percent Auto 9.1 % (25-40); Mean Corpuscular HGB Conc 33.6 % (30-36); Mean Corpuscular Hemoglobin 33.8 PG (26-34); Mean Corpuscular Volume 100.6 fL (80-100); Monocytes Absolute Auto 1000 /uL (0-900); Monocytes Percent Auto 11.3 % (3-14); Neutrophils Absolute Auto 7200 /uL (1500-7000); Neutrophils Percent Auto 78.6 % (50-75); Platelet Count 151 X10^3/uL (150-400); Red Blood Cell Count 4.41 X10^6/uL (4.0-5.2); Red Cell Distribution Width 13.1 % (11.6-14.8); White Blood Cell Count 9.1 X10^3/uL (4.5-11.0)
[2024-09-23 05:53] LABS: BUN Creatinine Ratio 33.1 (6-22); Blood Urea Nitrogen 39 mg/dL (7-17); Calcium 10.8 mg/dL (8.4-10.2); Carbon Dioxide 38 mmol/L (22-32); Chloride 100 mmol/L (98-107); Estimated Glomerular Filt Rate 47 mL/min (>60); Glucose 76 mg/dL (80-110); HEMOLYSIS < 15 (0-50); Magnesium 2.4 mg/dL (1.6-2.3); Potassium 3.7 mmol/L (3.4-5.1); Sodium 139 mmol/L (137-145)
[2024-09-23] MEDS: BUDESONIDE 0.5 MG/2 ML NEB INH ×2 (07:40→19:27)
[2024-09-23] MEDS: ALBUTEROL 2.5 MG/3 ML NEB (ADULT) INH ×4 (07:53→19:27)
[2024-09-23] MEDS: cloNIDine 0.1 MG TABLET PO ×2 (08:59→20:29)
[2024-09-23] MEDS: FUROSEMIDE 40 MG TABLET PO ×2 (08:59→17:52)
[2024-09-23] MEDS: predniSONE 20 MG TABLET 40 MG PO (09:00)
[2024-09-23] MEDS: ISOSORBIDE MONONITRATE ER 30 MG TABLET PO ×2 (09:00→20:31)
[2024-09-23] MEDS: LORATADINE 10 MG TABLET PO (09:00)
[2024-09-23] MEDS: METOPROLOL ER 50 MG TABLET PO ×2 (09:00→20:30)
[2024-09-23] MEDS: PANTOPRAZOLE DR 20 MG TABLET PO (09:00)
[2024-09-23] MEDS: NICOTINE 21 MG PATCH TOP (09:01)
[2024-09-23] MEDS: HEPARIN 5,000 UNIT/ML VIAL 5000 UNIT SUBCUT ×2 (09:01→20:30)
--- NOTE | 2024-09-23 10:51 | PM.PN.1 ---
Subjective Subjective Interval history: 79 year old female admitted with acute respiratory failure and COPD exacerbation. She is still on some supplemental oxygen, uses 3L at home. She gets very anxious moving around, hyperventilates, and feels very short of breath. Off of bipap today but on for approx 5 hours overnight per RT. Exam Vital Signs (past 8 hours): - 09/23/24 07:41 09/23/24 08:00 09/23/24 08:59 Temperature 98.3 F Pulse Rate 72 74 89 Respiratory Rate 22 28 H Blood Pressure 154/69 H 154/69 H Pulse Oximetry 96 95 Oxygen Delivery Method Nasal Cannula Oxygen Flow Rate 3 3 Fraction of Inspired Oxygen 32 09/23/24 09:00 Temperature Pulse Rate 89 Respiratory Rate Blood Pressure 154/69 H Pulse Oximetry Oxygen Delivery Method Oxygen Flow Rate Fraction of Inspired Oxygen Fraction of Inspired Oxygen 32 SaO2/FiO2 Ratio 300 Oxygen Delivery Method Nasal Cannula Oxygen Flow Rate 3 Narrative Exam Narrative: GENERAL: The patient is not in any acute distress. Awake and alert. HEENT: Nonicteric sclerae, PERRLA, EOMI. Oropharynx clear. MMM today. Conjunctivae appear well perfused. HEART: Regular rate and rhythm without murmurs. No lower extremities edema. LUNGS: slight diffuse wheezing, improved from yesterday. ABDOMEN: Soft, positive bowel sounds, nontender. SKIN: No rash, no excessive bruising, petechiae, or purpura. NEUROLOGIC: AxO x 3. Cranial nerves II-XII intact without motor/sensory deficit. Objective Labs 09/23/24 04:17 09/23/24 04:17 Labs: Laboratory Results - last 24 hr 09/23/24 04:17 WBC 9.1 RBC 4.41 Hgb 14.9 Hct 44.4 MCV 100.6 H MCH 33.8 MCHC 33.6 RDW 13.1 Plt Count 151 Neut % (Auto) 78.6 H Lymph % (Auto) 9.1 L [place] % (Auto) 11.3 Eos % (Auto) 0.6 L Baso % (Auto) 0.4 Neut # (Auto) 7200 H Lymph # (Auto) 800 L [place] # (Auto) 1000 H Eos # (Auto) 100 Baso # (Auto) 0 Sodium 139 Potassium 3.7 Chloride 100 Carbon Dioxide 38 H BUN 39 H Creatinine 1.18 H Estimated GFR 47 L BUN/Creatinine Ratio 33.1 H Glucose 76 L Calcium 10.8 H Magnesium 2.4 H PFSH Medical History GERD (gastroesophageal reflux disease) Skin lesion of back Hyperlipidemia Coronary artery disease Tobacco dependency Diabetes type 2, controlled Diabetes COPD (chronic obstructive pulmonary disease) Surgical History History of bilateral inguinal hernia repair History of bowel resection History of coronary artery bypass graft Family History Mother Hypertension Father Heart disease Grandmother Diabetes mellitus Grandfather Cancer Social History household members: children and other Smoking Status: Current every day smoker alcohol intake: never Assessment & Plan Assessment & Plan narrative: COPD w/ exacerbation. - changed IV solumedrol to oral prednisone, continue 40 mg daily. - improving dyspnea at rest. Dyspnea is complicated by anxiety with ambulation. - sputum culture with mold and yeast, not likely contributing to current symptoms. - PT / OT to continue, recommending home with assistance. - CTA negative for PE. Does show emphesematous changes. - consider evaluation for home PiPAP at night. Possible acute on chronic diastolic heart failure. - s/p IV Lasix in ER though patient appeared dehydrated after. Cr improved the last couple of days. - Continue home furosemide today, consider IV diuresis if still severely dyspnic in the next few days. - probnp elevation likely due to chronic atrial dilatation from underlying COPD. Hypercalcemia - mild with calcium 11.1, likely slight dehydration. Essentially stable the last few days. - continue to follow. Elevated creatinine - unknown baseline Cr currently. 1.16 today - held furosemide as above, monitor with resumption of furosemide today. - continue to follow BMP. Acute on Chronic respiratory failure with hypoxia. - titrate oxygen to 89-96% while on supplemental therapy. Incidental lung nodule 1.5cm. Follow up with repeat imaging as reccomended in 3 months. Hyperlipidemia - continue home statin Tobacco use - continue nicotine patch, counseled on cessation Dependent diabetes insulin. Continue home glargine 35 U nightly, sliding scale. DVT prophylaxis heparin sub Code status is full code. Disosition, likely home in 1-2 more days. Time-Based Coding :: [TOTAL MINUTES] spent with patient and on the chart (including review of chart, obtaining history, exam, reviewing outside data, placing orders, documenting exam and treatment plan, and counseling patient) on [DATE]. Quality VTE Deep Vein Thrombosis/Pulmonary Embolism Present on Admission: No
--- NOTE | 2024-09-23 12:42 | PT-IP ANOTE ---
PT checks in on pt. Pt is sitting up in chair eating and she is severely dyspneic. Will con't PT efforts at another time, which may be next date.
[2024-09-23] MEDS: levoFLOXacin 250 MG TABLET PO (20:29)
[2024-09-23] MEDS: ASPIRIN EC 81 MG TABLET PO (20:30)
[2024-09-23] MEDS: INSULIN LISPRO 100 UNIT/ML 3ML VIAL SUBCUT (20:31)
[2024-09-23] MEDS: CODEINE/GUAIFENESIN LIQUID 5ML UDC 10 ML PO (20:40)
[2024-09-23] MEDS: EZETIMIBE 10 MG TABLET PO (21:40)
[2024-09-23] MEDS: ATORVASTATIN 20 MG TABLET 80 MG PO (21:40)
[2024-09-23] MEDS: INSULIN GLARGINE 100 UNIT/ML 3ML PEN 35 UNIT SUBCUT (21:40)
[2024-09-24] VITALS (66 sets, daily range): BP systolic 136–165; BP diastolic 61–81; PULSE 68–96; RESP 17–60; TEMP 36.1–36.5; O2SAT 88–99
[2024-09-24] MEDS: ALBUTEROL 2.5 MG/3 ML NEB (ADULT) INH ×6 (00:17→22:00)
[2024-09-24 05:21] LABS: Add Manual Diff / Slide Review NO; Basophils Absolute Auto 0 /uL (0-100); Basophils Percent Auto 0.5 % (0-2); Eosinophils Absolute Auto 100 /uL (0-450); Eosinophils Percent Auto 0.8 % (2-4); Hematocrit 42.3 % (36-46); Hemoglobin 14.4 g/dL (12.0-16.0); Lymphocytes Absolute Auto 600 /uL (1100-4500); Lymphocytes Percent Auto 7.4 % (25-40); Mean Corpuscular Volume 100.1 fL (80-100); Monocytes Absolute Auto 900 /uL (0-900); Monocytes Percent Auto 10.7 % (3-14); Neutrophils Absolute Auto 6900 /uL (1500-7000); Neutrophils Percent Auto 80.6 % (50-75); Platelet Count 137 X10^3/uL (150-400); Red Blood Cell Count 4.23 X10^6/uL (4.0-5.2); Red Cell Distribution Width 12.8 % (11.6-14.8); White Blood Cell Count 8.6 X10^3/uL (4.5-11.0)
[2024-09-24 05:34] LABS: BUN Creatinine Ratio 38.7 (6-22); Blood Urea Nitrogen 43 mg/dL (7-17); Calcium 10.5 mg/dL (8.4-10.2); Carbon Dioxide 36 mmol/L (22-32); Chloride 99 mmol/L (98-107); Estimated Glomerular Filt Rate 50 mL/min (>60); Glucose 140 mg/dL (80-110); HEMOLYSIS 17 (0-50); Potassium 3.8 mmol/L (3.4-5.1); Sodium 137 mmol/L (137-145)
[2024-09-24] MEDS: BUDESONIDE 0.5 MG/2 ML NEB INH ×2 (06:19→22:01)
[2024-09-24] MEDS: CODEINE/GUAIFENESIN LIQUID 5ML UDC 10 ML PO ×2 (08:15→18:48)
[2024-09-24] MEDS: PANTOPRAZOLE DR 20 MG TABLET PO (08:15)
[2024-09-24] MEDS: LORazepam 0.5 MG TABLET PO ×2 (08:15→18:48)
[2024-09-24] MEDS: NICOTINE 21 MG PATCH TOP (08:16)
[2024-09-24] MEDS: ISOSORBIDE MONONITRATE ER 30 MG TABLET PO ×2 (08:20→21:29)
[2024-09-24] MEDS: HEPARIN 5,000 UNIT/ML VIAL 5000 UNIT SUBCUT ×2 (08:20→21:27)
[2024-09-24] MEDS: cloNIDine 0.1 MG TABLET PO ×2 (08:20→21:27)
[2024-09-24] MEDS: predniSONE 20 MG TABLET 40 MG PO (08:21)
[2024-09-24] MEDS: METOPROLOL ER 50 MG TABLET PO ×2 (08:21→21:29)
[2024-09-24] MEDS: LORATADINE 10 MG TABLET PO (08:21)
[2024-09-24] MEDS: FUROSEMIDE 40 MG TABLET PO (08:25)
--- NOTE | 2024-09-24 10:32 | DIET.CONS ---
Dietary Consultation Note Admission Date: 09/19/2024 20:53 Assessment: 79 y F admitted for SOB. RD screened for LOS. Pt sleeping soundly upon attempted visit, did not wake to name being called. EMR reviewed. 75-100% recorded PO intakes. DFM reviewed. No nutritional interventions needed at this time. Will continue to monitor PO intakes. Ht: 177.8 cm Wt: 91.5 kg BMI: 29.4 UBW: limited wt hx, 103.2 kg 06/20/20 Last BM: 09/19/24 (09/19/24 21:21) MNA: Truman Score: 21 Diet: 09/20/24 Breakfast Carbohydrate Consistent Diet Diet Modifications: Carbohydrate level: Medium (3 CHO) Reflex DM orders: No Food Texture: Level 7 - Regular Liquid Consistency: Level 0 - Thin Nutrition Percent Meal Consumed 100% 09/24/24 09:43 Percent Meal Consumed 100% 09/23/24 18:00 Percent Meal Consumed 75% 09/23/24 15:00 Percent Meal Consumed 75% 09/22/24 18:00 Labs: RBC 4.23 X10^6/uL (4.0-5.2) 09/24/24 04:19 Hgb 14.4 g/dL (12.0-16.0) 09/24/24 04:19 Hct 42.3 % (36-46) 09/24/24 04:19 Creatinine 1.11 mg/dL (0.52-1.04) H 09/24/24 04:19 Lactate 1.1 mmol/L (0.7-2.1) 09/19/24 17:32 NT-Pro-B Natriuret Pep 1720 pg/mL (<450) H 09/19/24 17:32 Nutrition Diagnosis: Interventions: EER: Monitoring/Evaluations: Electronically Signed by: Vinita Agrawal 09/24/24 10:32 Clinical Dietitian [address] [address]
--- NOTE | 2024-09-24 11:55 | PM.PN.1 ---
Subjective Subjective Interval history: 79 year old female admitted with acute respiratory failure and COPD exacerbation. She is still on some supplemental oxygen, uses 3L at home. She did not need BiPAP overnight last night. Given lack of improvement with dyspnea, will attempt slight diuresis today to see if improvement. Exam Vital Signs (past 8 hours): - 09/24/24 05:37 09/24/24 06:21 09/24/24 08:00 Temperature 97.4 F L Pulse Rate 68 73 Respiratory Rate 22 26 H Blood Pressure 136/61 Pulse Oximetry 96 97 Oxygen Delivery Method Nasal Cannula Nasal Cannula Oxygen Flow Rate 3 3.5 Fraction of Inspired Oxygen 09/24/24 08:20 09/24/24 10:52 Temperature Pulse Rate 81 84 Respiratory Rate 22 Blood Pressure 159/73 H Pulse Oximetry 94 Oxygen Delivery Method Nasal Cannula Oxygen Flow Rate 3 Fraction of Inspired Oxygen 32 Fraction of Inspired Oxygen 32 SaO2/FiO2 Ratio 293 Oxygen Delivery Method Nasal Cannula Oxygen Flow Rate 3 Narrative Exam Narrative: GENERAL: The patient is not in any acute distress. Awake and alert. HEENT: Nonicteric sclerae, PERRLA, EOMI. Oropharynx clear. MMM today. Conjunctivae appear well perfused. HEART: Regular rate and rhythm without murmurs. No lower extremities edema. LUNGS: slight diffuse wheezing, improved from yesterday. ABDOMEN: Soft, positive bowel sounds, nontender. SKIN: No rash, no excessive bruising, petechiae, or purpura. NEUROLOGIC: AxO x 3. Cranial nerves II-XII intact without motor/sensory deficit. Objective Labs 09/24/24 04:19 09/24/24 04:19 Labs: Laboratory Results - last 24 hr 09/24/24 04:19 WBC 8.6 RBC 4.23 Hgb 14.4 Hct 42.3 MCV 100.1 H MCH 34.0 MCHC 34.0 RDW 12.8 Plt Count 137 L Neut % (Auto) 80.6 H Lymph % (Auto) 7.4 L [place] % (Auto) 10.7 Eos % (Auto) 0.8 L Baso % (Auto) 0.5 Neut # (Auto) 6900 Lymph # (Auto) 600 L [place] # (Auto) 900 Eos # (Auto) 100 Baso # (Auto) 0 Sodium 137 Potassium 3.8 Chloride 99 Carbon Dioxide 36 H BUN 43 H Creatinine 1.11 H Estimated GFR 50 L BUN/Creatinine Ratio 38.7 H Glucose 140 H Calcium 10.5 H PFSH Medical History GERD (gastroesophageal reflux disease) Skin lesion of back Hyperlipidemia Coronary artery disease Tobacco dependency Diabetes type 2, controlled Diabetes COPD (chronic obstructive pulmonary disease) Surgical History History of bilateral inguinal hernia repair History of bowel resection History of coronary artery bypass graft Family History Mother Hypertension Father Heart disease Grandmother Diabetes mellitus Grandfather Cancer Social History household members: children and other Smoking Status: Current every day smoker alcohol intake: never Assessment & Plan Assessment & Plan narrative: COPD w/ exacerbation. - changed IV solumedrol to oral prednisone, continue 40 mg daily. - improving dyspnea at rest. Dyspnea is complicated by anxiety with ambulation. - sputum culture with mold and yeast, not likely contributing to current symptoms. - PT / OT to continue, recommending home with assistance. - CTA negative for PE. Does show emphesematous changes. - consider evaluation for home PiPAP at night. Possible acute on chronic diastolic heart failure. - s/p IV Lasix in ER though patient appeared dehydrated after. Cr improved the last couple of days. - Continued home furosemide today, will try IV diuresis again today with 40 mg IV BID to see if any improvement in dyspnea on exertion. - probnp elevation likely due to chronic atrial dilatation from underlying COPD. Hypercalcemia - mild with calcium 11.1, likely slight dehydration and now improved slightly. Essentially stable the last few days. - continue to follow. Elevated creatinine - unknown baseline Cr currently. 1.11 today - held furosemide as above, monitor with resumption of furosemide and now increase today. - continue to follow BMP. Acute on Chronic respiratory failure with hypoxia. - titrate oxygen to 89-96% while on supplemental therapy. Incidental lung nodule 1.5cm. Follow up with repeat imaging as reccomended in 3 months. Hyperlipidemia - continue home statin Tobacco use - continue nicotine patch, counseled on cessation Dependent diabetes insulin. Continue home glargine 35 U nightly, sliding scale. High sugars at mealtimes, consider addition of meal-time insulin depending on glucose levels today. DVT prophylaxis heparin sub Code status is full code. Disosition, likely home in 1-2 more days. Time-Based Coding :: [TOTAL MINUTES] spent with patient and on the chart (including review of chart, obtaining history, exam, reviewing outside data, placing orders, documenting exam and treatment plan, and counseling patient) on [DATE]. Quality VTE Deep Vein Thrombosis/Pulmonary Embolism Present on Admission: No
[2024-09-24] MEDS: INSULIN LISPRO 100 UNIT/ML 3ML VIAL SUBCUT ×3 (12:17→21:30)
[2024-09-24] MEDS: FUROSEMIDE 40 MG/4 ML VIAL 20 MG IV (12:21)
--- NOTE | 2024-09-24 14:57 | PT.IPTN ---
Current Diagnoses Chronic obstructive pulmonary disease with (acute) exacerbation (09/19/24) Physical Therapy Treatment Note M2 PT-IP Current Condition Start: 09/20/24 09:04 Freq: NEEDED Status: Active Protocol: Document 09/20/24 10:43 MB (Rec: 09/20/24 11:14 MB [id number]) Physical Therapy Current Condition Current Condition Evaluation Date 09/20/24 Treatment Diagnosis COPD exacerbation, SOB M3 PT-IP Subjective Start: 09/20/24 09:04 Freq: NEEDED Status: Active Protocol: Document 09/24/24 14:41 MB (Rec: 09/24/24 14:57 MB [id number]) Subjective Physical Therapy Visit Type Type Treatment Note Visit Start Time 14:41 Visit Stop Time 14:50 Number of TAFE TEACHER Visits 0 Physical Therapy Visit Comments Patient Comments Pt agreeable to work with PT as she needs to get up to the [facility]. M4 PT-IP Mobility and Gait Start: 09/20/24 09:04 Freq: NEEDED Status: Active Protocol: Document 09/24/24 14:41 MB (Rec: 09/24/24 14:57 MB [id number]) PT-Bed Mobility Assessment Supine to Sit Supine to Sit Standby Assistance,Head of Bed Elevated,Bedrails Scooting Scooting to Edge of Bed Standby Assistance PT-Transfer Assessment Sit to and From Stand Sit to and from Stand Standby Assistance,Use of Upper Extremities Equipment Orthotic/Prosthetic Devices or Brace: No Transfers Transfer Destination Chair,Bedside Commode Transfer Technique Stand Step Pivot and pt takes some steps Transfer Ability Level of Assist Standby Assistance,1 Person Assistance,Use of Upper Extremities Comments Mobility Comments Pt on 3L O2 and she becomes severely dyspneic, scale 4/4, with stepping from BSC to the chair and O2 sats drop to the mid 80s and her HR is between 95-125 BPM. Pt requires set-up assistance for urination and hygiene and standby assist for stepping. Cannot move further d/t severe dyspnea. Gait Assessment Gait Gait Assistance Required: Standby Assistance Distance (Feet) 3 Able to Maintain Weight Bearing Status Yes During Gait Assistive Devices Orthotic/Prosthetic Devices or Brace: No Gait Deviations General Gait Pattern Decreased Stride Length, Decreased Feet Clearance, Flexed Trunk Factors Limiting Gait Function Factors Limiting Gait Function Decreased Activity Tolerance, Poor Balance,Poor Safety Awareness,Respiratory Distress Comments Gait Comments Pt adamantly refuses AD today when PT brings over cane and walker PT-Balance Assessment Sitting Balance and Reactions Static Sitting Balance Ability Good Dynamic Sitting Balance Ability Good Standing Balance and Reactions Static Standing Balance Ability Fair Dynamic Standing Balance Ability Fair M5 PT-IP Objective Assessments Start: 09/20/24 09:04 Freq: NEEDED Status: Active Protocol: Document 09/20/24 10:43 MB (Rec: 09/20/24 11:14 MB [id number]) Orientation Orientation/Cognition Level of Alertness Alert Orientation Name,Age,Birthday,Month,Date, Place,Situation Language Function Ability No Deficits Noted Safety Awareness Decreased Safety Awareness Memory Description No Deficits Noted Gross Range of Motion Upper Extremity ROM Impairments Defer to OT Lower Extremity ROM Impairments Decreased hip extension noted in postural changes, functional mobility in stooped posture presentation Strength Comments Strength Comments See ROM comments for LEs Coordination Assessment Assessment Coordination Comments Slow and effort-full mobility and tasks Sensation Assessment Comments Sensation Comments Did not test Muscle Tone Muscle Tone WNL Yes M6 PT-IP Treatment Start: 09/20/24 09:04 Freq: NEEDED Status: Active Protocol: Document 09/24/24 14:41 MB (Rec: 09/24/24 14:57 MB [id number]) Physical Therapy Treatment Education Education Provided Safety M7 PT-IP Assessment and Plan Start: 09/20/24 09:04 Freq: NEEDED Status: Active Protocol: Document 09/24/24 14:41 MB (Rec: 09/24/24 14:57 MB [id number]) PT Summary Assessment and Plan Potential Rehabilitation Potential Poor Status of Condition at Evaluation Unstable Summary Impairments Balance,Bed Mobility,Transfers ,Gait,Activity Tolerance Progress Towards Goals Slow Progress due to Medical Issues,Slow Progress due to Activity Tolerance Assessment Summary Pt con't with severe BYRD with minimal activity and this limits progress with PT. Her O2 sats drop on 3L O2 and she becomes tachycardic. Unsure goals for d/c as functional mobility and I are severely limited by pulmonary status. Goals Bed Mobility Goal Independent Transfer Goal Standby Assistance,Cane,Front Wheeled Walker,Four Wheeled Walker Gait Goal Standby Assistance,Cane,Front Wheel Walker,Four Wheel Walker Gait Distance 50 Other Goals Pt will ascend and descend 3 steps with left rail and LRAD (likely cane) and no more than CGA to allow safe home entry. LRAD training if SPC is not appropriate: RW vs 4WRW given pulmonary presentation Days to Meet Goals 5 Frequency of Treatment Frequency Of Treatment Once a Day Treatment Plan Physical Therapy Treatment Plan Bed Mobility Training,Transfer Training,Gait Training, Balance Retraining,Discharge Planning Precautions Other Precautions O2 desaturation Recommendations To Nursing Amount of Assist Needed Standby Assistance Discharge Recommendations PT Discharge Recommendations Home with 24/7 Assist Available,Home Health Transportation Needs at Discharge Private Vehicle
--- NOTE | 2024-09-24 15:28 | CM.DPC ---
DCP Cont: Per MD, pt making progress and did not need bipap overnight but still very dyspnic with exertion and not medically stable for discharge yet today but possibly tomorrow if remains off bipap. May still need RT assess for new home O2 pending progress. Per PT, continue to recommend home with family assist and HH. [facility] has accepted referral. ADEOLA Melvin
--- NOTE | 2024-09-24 16:01 | OT.IP.TRT ---
Current Diagnoses Chronic obstructive pulmonary disease with (acute) exacerbation (09/19/24) Occupational Therapy Treatment Note M2 OT-IP Current Condition Start: 09/20/24 13:23 Freq: Status: Active Protocol: Document 09/20/24 13:23 CGR (Rec: 09/20/24 13:44 CGR [id number]) Occupational Therapy Current Condition Current Condition Evaluation Date 09/20/24 Treatment Diagnosis COPD exacerbation, Mild CHF Diagnosis Onset Date 09/19/24 M3 OT- IP Subjective and Pain Start: 09/20/24 13:23 Freq: Status: Active Protocol: Document 09/24/24 20:02 CGR (Rec: 09/24/24 20:14 CGR [id number]) OT- Subjective Occupational Therapy Visit Type Type Treatment Note Visit Start Time 15:50 Visit Stop Time 16:01 Notes In todays session, pt declined any activity stating that she had just returned to the bed but was agreeable in going over the energy conservation handout that was provided last week. OT Pain Assessment Pain When Pain Assessed At Rest Pain Present Pain Present Denied Pain M4 OT- IP ADL's Start: 09/20/24 13:23 Freq: Status: Active Protocol: Document 09/24/24 20:02 CGR (Rec: 09/24/24 20:14 CGR [id number]) OT ADL-Grooming Comments OT Grooming Comments discussed sitting for simple ADLs to conserve energy from standing OT ADL-Oral Care Comments Oral Care Comments discussed sitting for simple ADLs to conserve energy from standing OT ADL-Dressing Comments OT Dressing Comments Discussed sitting for dressing and splitting up the gathering of clothing from the dressing to allow for rest. Also discussed positioning of body in regard to breathing and that bending over typically makes breathing harder. OT ADL-Bathing Comments OT Bathing Comments Discussed showering in the morning when she is feling fresh and with more energy, having a chair in the bathroom to sit on after bathing, and preparing for the shower then taking a rest break before taking a shower. M5 OT- IP IADL's Start: 09/20/24 13:23 Freq: Status: Active Protocol: Document 09/20/24 13:23 CGR (Rec: 09/20/24 13:44 CGR [id number]) OT-Instrumental Activities of Daily Living Deficits IADL Deficits Identified No Deficits Home Safety Awareness Awareness of Need for Assistance at Home Good Awareness Ability to Problem Solve Emergency Able to Problem Solve Situations Medication Management Medication Management No Deficits Identified Money Management Money Management No Deficits Identified Meal Preparation Meal Preparation Caregiver Provides Assist Freelance Programmer/App Developer Freelance Programmer/App Developer Caregiver Provides Assist Driving Driving Comments Pt does not drive. M6 OT- IP Functional Cognition Start: 09/20/24 13:23 Freq: Status: Active Protocol: Document 09/20/24 13:23 CGR (Rec: 09/20/24 13:44 CGR [id number]) Cognitive Factors Limiting Selfcare Function Cognitive Ability Level of Alertness Alert Patient Orientation Name,Age,Birthday,Month,Date, Year,Day of Week,Place, Situation Attention Span Ability Capable of Focused Attention, Capable of Sustained Attention OT- Vision and Hearing OT- Hearing Assessment OT- Hearing Assessment WFL OT- Vision Assessment Visual Acuity Glasses All The Time Visual Attentiveness WFL Occular Pursuits WFL Visual Convergence WFL M7 OT- IP Mobility and Balance Start: 09/20/24 13:23 Freq: Status: Active Protocol: Document 09/24/24 20:02 CGR (Rec: 09/24/24 20:14 CGR [id number]) OT-Transfer Assessment Comments Mobility Comments Discussed that pt might benefit from using her 4ww at home to have a seat where ever she goes. OT- Balance Assessment Sitting Balance and Reactions Static Sitting Balance Ability Good Dynamic Sitting Balance Ability Good Standing Balance and Reactions Static Standing Balance Ability Fair Dynamic Standing Balance Ability Fair M8 OT- IP Objective Assessments Start: 09/20/24 13:23 Freq: Status: Active Protocol: Document 09/20/24 13:23 CGR (Rec: 09/20/24 13:44 CGR [id number]) OT Gross Range of Motion Upper Extremity Range of Motion Assessment Within Functional Limits OT Strength Comments Strength Comments not tested d/t dyspnea OT- Coordination Assessment Upper Extremity Finger to Nose Test Within Functional Limits Finger Tapping Test Within Functional Limits OT-Muscle Tone Assessment Muscle Tone WNL Yes OT Sensation Assessment Edema Edema Absent M9 OT- IP Assessment and Plan Start: 09/20/24 13:23 Freq: Status: Active Protocol: Document 09/24/24 20:02 CGR (Rec: 09/24/24 20:14 CGR [id number]) OT Summary Assessment and Plan Potential Rehabilitation Potential Good Analytic Complexity at Evaluation Low Summary OT Impairments Functional Mobility,Grooming, Dressing,Toileting,Bathing, Toilet Transfers,Shower Transfers,Activity Tolerance Progress Towards Goals Slow Progress due to Activity Tolerance Assessment Summary Pt presents as a low complexity evaluation s/p admit for dyspnea. Pt is significantly labored in breathing after minimal activity and requires significant time to catch her breath. Today pt states that she feels about the same as the last few days. Pt is agreeable to discussing energy conservation strategies and states that she does a lot of those thing already. Pt will continue to benefit from therapy services. Goals Grooming Goal Independent Dressing Goal Independent Toileting Goal Independent Bathing Goal Independent Toilet Transfer Goal Independent Shower Transfer Goal Independent Days to Meet Goals 10 Frequency of Treatment Other frequency 5x per week. Treatment Plan OT Treatment Plan ADL Training,Functional Mobility,Patient/Family Education,Discharge Planning Other Treatment Recommendations and Next energy conservation education. Treatment Focus Discharge Recommendations OT Discharge Recommendations Home with Assistance Transportation Needs at Discharge Private Vehicle
[2024-09-24] MEDS: FUROSEMIDE 40 MG/4 ML VIAL IV (18:43)
[2024-09-24] MEDS: SODIUM CHLORIDE 0.9% FLUSH 10 ML IV (21:27)
[2024-09-24] MEDS: SENNOSIDES 8.6 MG TABLET 17.2 MG PO (21:28)
[2024-09-24] MEDS: ATORVASTATIN 20 MG TABLET 80 MG PO (21:28)
[2024-09-24] MEDS: EZETIMIBE 10 MG TABLET PO (21:29)
[2024-09-24] MEDS: levoFLOXacin 250 MG TABLET PO (21:29)
[2024-09-24] MEDS: INSULIN GLARGINE 100 UNIT/ML 3ML PEN 35 UNIT SUBCUT (21:29)
[2024-09-24] MEDS: ASPIRIN EC 81 MG TABLET PO (21:29)
[2024-09-24] MEDS: DOCUSATE 100 MG CAPSULE PO (21:29)
[2024-09-24] MEDS: OXYCODONE IR 5 MG TABLET PO (23:18)
[2024-09-25] VITALS (64 sets, daily range): BP systolic 130–175; BP diastolic 60–107; PULSE 67–107; RESP 16–44; TEMP 36–36.2; O2SAT 88–98
[2024-09-25] MEDS: ALBUTEROL/IPRATROPIUM 3 ML AMPUL INH (04:28)
[2024-09-25 05:05] LABS: Add Manual Diff / Slide Review NO; Basophils Absolute Auto 100 /uL (0-100); Basophils Percent Auto 0.7 % (0-2); Eosinophils Absolute Auto 100 /uL (0-450); Eosinophils Percent Auto 1.5 % (2-4); Hematocrit 43.6 % (36-46); Hemoglobin 14.4 g/dL (12.0-16.0); Lymphocytes Absolute Auto 600 /uL (1100-4500); Lymphocytes Percent Auto 6.5 % (25-40); Mean Corpuscular HGB Conc 32.9 % (30-36); Mean Corpuscular Hemoglobin 33.4 PG (26-34); Mean Corpuscular Volume 101.4 fL (80-100); Monocytes Absolute Auto 600 /uL (0-900); Monocytes Percent Auto 7.3 % (3-14); Neutrophils Absolute Auto 7300 /uL (1500-7000); Platelet Count 138 X10^3/uL (150-400); Red Cell Distribution Width 12.9 % (11.6-14.8); White Blood Cell Count 8.7 X10^3/uL (4.5-11.0)
[2024-09-25 05:24] LABS: BUN Creatinine Ratio 36.6 (6-22); Blood Urea Nitrogen 41 mg/dL (7-17); Calcium 10.5 mg/dL (8.4-10.2); Carbon Dioxide 39 mmol/L (22-32); Chloride 96 mmol/L (98-107); Estimated Glomerular Filt Rate 50 mL/min (>60); Glucose 164 mg/dL (80-110); HEMOLYSIS 17 (0-50); Potassium 3.7 mmol/L (3.4-5.1); Sodium 136 mmol/L (137-145)
[2024-09-25] MEDS: BUDESONIDE 0.5 MG/2 ML NEB INH ×2 (08:59→17:52)
[2024-09-25] MEDS: ALBUTEROL 2.5 MG/3 ML NEB (ADULT) INH ×4 (08:59→23:42)
[2024-09-25] MEDS: FUROSEMIDE 40 MG/4 ML VIAL IV ×2 (09:12→17:48)
[2024-09-25] MEDS: NICOTINE 21 MG PATCH TOP (09:12)
[2024-09-25] MEDS: CODEINE/GUAIFENESIN LIQUID 5ML UDC 10 ML PO ×2 (09:13→17:47)
[2024-09-25] MEDS: SODIUM CHLORIDE 0.9% FLUSH 10 ML IV ×2 (09:13→21:14)
[2024-09-25] MEDS: predniSONE 20 MG TABLET 40 MG PO (09:13)
[2024-09-25] MEDS: cloNIDine 0.1 MG TABLET PO ×2 (09:13→21:12)
[2024-09-25] MEDS: PANTOPRAZOLE DR 20 MG TABLET PO (09:14)
[2024-09-25] MEDS: DOCUSATE 100 MG CAPSULE PO ×2 (09:14→21:12)
[2024-09-25] MEDS: LORATADINE 10 MG TABLET PO (09:14)
[2024-09-25] MEDS: METOPROLOL ER 50 MG TABLET PO ×2 (09:14→21:13)
[2024-09-25] MEDS: ISOSORBIDE MONONITRATE ER 30 MG TABLET PO ×2 (09:14→21:13)
[2024-09-25] MEDS: HEPARIN 5,000 UNIT/ML VIAL 5000 UNIT SUBCUT ×2 (09:14→21:12)
--- NOTE | 2024-09-25 10:55 | OT.IP.TRT ---
Current Diagnoses Chronic obstructive pulmonary disease with (acute) exacerbation (09/19/24) Occupational Therapy Treatment Note M2 OT-IP Current Condition Start: 09/20/24 13:23 Freq: Status: Active Protocol: Document 09/20/24 13:23 [facility] (Rec: 09/20/24 13:44 [facility] [id number]) Occupational Therapy Current Condition Current Condition Evaluation Date 09/20/24 Treatment Diagnosis COPD exacerbation, Mild CHF Diagnosis Onset Date 09/19/24 M3 OT- IP Subjective and Pain Start: 09/20/24 13:23 Freq: Status: Active Protocol: Document 09/25/24 10:57 [facility] (Rec: 09/25/24 11:04 [facility] [id number]) OT- Subjective Occupational Therapy Visit Type Type Treatment Note Visit Start Time 10:23 Visit Stop Time 10:55 Occupational Therapy Visit Comments Patient Comments Pt agreed to use the BSC and refused to shower at this time . Patient/Caregiver Goals Pt is very adamant of going home. OT Pain Assessment Pain When Pain Assessed At Rest Pain Present Pain Present Pain Reported Location Back Intensity 6 Scale Used Numeric (0 - 10) M4 OT- IP ADL's Start: 09/20/24 13:23 Freq: Status: Active Protocol: Document 09/25/24 10:57 [facility] (Rec: 09/25/24 11:04 [facility] [id number]) OT [id number] Comments OT Self-Feeding Comments Not at meal time. OT ADL-Grooming Comments OT Grooming Comments Pt states did earlier. OT ADL-Oral Care Comments Oral Care Comments Pt refused. OT ADL-Dressing General Eval Lower Body Dressing Ability Standby Assistance Areas Needing Assistance Underpants/Brief,Pants/Shorts Comments OT Dressing Comments Pt able to mayra her underwear and pants while seated on the BSC with SBA. Pt O2 drops to 88% and able deep breaths and time increases to over 90% on O2. OT ADL-Toileting General Evaluation Toileting Ability Standby Assistance Devices Toileting Assistive Devices Commode Comments OT Toileting Comments SBA with all toileting needs. M5 OT- IP IADL's Start: 09/20/24 13:23 Freq: Status: Active Protocol: Document 09/20/24 13:23 [facility] (Rec: 09/20/24 13:44 [facility] [id number]) OT-Instrumental Activities of Daily Living Deficits IADL Deficits Identified No Deficits Home Safety Awareness Awareness of Need for Assistance at Home Good Awareness Ability to Problem Solve Emergency Able to Problem Solve Situations Medication Management Medication Management No Deficits Identified Money Management Money Management No Deficits Identified Meal Preparation Meal Preparation Caregiver Provides Assist Prescription Clerk Prescription Clerk Caregiver Provides Assist Driving Driving Comments Pt does not drive. M6 OT- IP Functional Cognition Start: 09/20/24 13:23 Freq: Status: Active Protocol: Document 09/20/24 13:23 [facility] (Rec: 09/20/24 13:44 [facility] [id number]) Cognitive Factors Limiting Selfcare Function Cognitive Ability Level of Alertness Alert Patient Orientation Name,Age,Birthday,Month,Date, Year,Day of Week,Place, Situation Attention Span Ability Capable of Focused Attention, Capable of Sustained Attention OT- Vision and Hearing OT- Hearing Assessment OT- Hearing Assessment WFL OT- Vision Assessment Visual Acuity Glasses All The Time Visual Attentiveness WFL Occular Pursuits WFL Visual Convergence WFL M7 OT- IP Mobility and Balance Start: 09/20/24 13:23 Freq: Status: Active Protocol: Document 09/25/24 10:57 [facility] (Rec: 09/25/24 11:04 [facility] [id number]) OT- Bed Mobility Assessment Supine to Sit Supine to Sit Assist Standby Assistance Sit to Supine Sit to Supine Assist Standby Assistance Scooting Scooting to Edge of Bed Standby Assistance OT-Transfer Assessment Sit to and From Stand Sit to and from Stand Standby Assistance Transfers Transfer Ability Standby Assistance Technique Transfer Destination Bed,Bedside Commode Transfer Technique Stand Step Pivot Devices Transfer Assistive Devices None Comments Mobility Comments Pt adamant of not using the FWW or belt. Pt SBA with transfer and mainly just needing assist to help move the tubing. OT- Balance Assessment Sitting Balance and Reactions Static Sitting Balance Ability Good Dynamic Sitting Balance Ability Good Standing Balance and Reactions Static Standing Balance Ability Good Dynamic Standing Balance Ability Fair M8 OT- IP Objective Assessments Start: 09/20/24 13:23 Freq: Status: Active Protocol: Document 09/20/24 13:23 [facility] (Rec: 09/20/24 13:44 [facility] [id number]) OT Gross Range of Motion Upper Extremity Range of Motion Assessment Within Functional Limits OT Strength Comments Strength Comments not tested d/t dyspnea OT- Coordination Assessment Upper Extremity Finger to Nose Test Within Functional Limits Finger Tapping Test Within Functional Limits OT-Muscle Tone Assessment Muscle Tone WNL Yes OT Sensation Assessment Edema Edema Absent M9 OT- IP Assessment and Plan Start: 09/20/24 13:23 Freq: Status: Active Protocol: Document 09/25/24 10:57 [facility] (Rec: 09/25/24 11:04 [facility] [id number]) OT Summary Assessment and Plan Potential Rehabilitation Potential Good Analytic Complexity at Evaluation Low Summary OT Impairments Functional Mobility,Grooming, Dressing,Toileting,Bathing, Toilet Transfers,Shower Transfers,Activity Tolerance Assessment Summary Pt able to do toileting needs on her own with just SBA for tubing management needs. Pt adamant of going home and not to SNF at this time. Pt still gets significantly SOB after activity performed. Pt to go home with assist and home health. Goals Grooming Goal Independent Dressing Goal Independent Toileting Goal Independent Bathing Goal Independent Toilet Transfer Goal Independent Shower Transfer Goal Independent Days to Meet Goals 10 Frequency of Treatment Other frequency 5x per week. Treatment Plan OT Treatment Plan ADL Training,Functional Mobility,Patient/Family Education,Discharge Planning Other Treatment Recommendations and Next Shower versus sponge bath Treatment Focus Discharge Recommendations OT Discharge Recommendations Home with Assistance,Home Health Transportation Needs at Discharge Private Vehicle
--- NOTE | 2024-09-25 11:06 | P.PN_ITS ---
Subjective Subjective Interval history: 79 year old female admitted with acute respiratory failure and COPD exacerbation. She is still on some supplemental oxygen, uses 3L at home. She did not need BiPAP overnight last night. She feels a bit better today with diuresis, changed to IV furosemide yesterday. Will continue today. Exam Vital Signs (past 8 hours): - 09/25/24 03:30 09/25/24 04:00 09/25/24 04:00 Temperature 96.9 F L Pulse Rate 69 78 69 Respiratory Rate 19 22 17 Blood Pressure 130/60 Pulse Oximetry 95 91 95 Oxygen Delivery Method Oxygen Flow Rate 2 09/25/24 04:15 09/25/24 04:15 09/25/24 04:30 Temperature Pulse Rate 76 75 Respiratory Rate 36 H 28 H Blood Pressure 130/60 Pulse Oximetry 93 95 Oxygen Delivery Method Nasal Cannula Oxygen Flow Rate 3 09/25/24 04:30 09/25/24 05:00 09/25/24 05:30 Temperature Pulse Rate 74 76 73 Respiratory Rate 33 H 22 17 Blood Pressure Pulse Oximetry 94 96 95 Oxygen Delivery Method Oxygen Flow Rate 09/25/24 06:00 09/25/24 06:30 09/25/24 07:00 Temperature Pulse Rate 72 78 71 Respiratory Rate 17 40 H 17 Blood Pressure Pulse Oximetry 95 95 95 Oxygen Delivery Method Oxygen Flow Rate 09/25/24 07:30 09/25/24 08:00 09/25/24 08:00 Temperature Pulse Rate 70 75 Respiratory Rate 16 19 Blood Pressure Pulse Oximetry 98 94 93 Oxygen Delivery Method Oxygen Flow Rate 09/25/24 08:12 09/25/24 08:12 09/25/24 08:30 Temperature Pulse Rate 78 84 Respiratory Rate 28 H 34 H Blood Pressure 159/70 H Pulse Oximetry 94 92 Oxygen Delivery Method Oxygen Flow Rate 09/25/24 08:59 09/25/24 09:13 09/25/24 09:14 Temperature Pulse Rate 100 H Respiratory Rate Blood Pressure 159/70 H Pulse Oximetry 91 Oxygen Delivery Method Room Air Oxygen Flow Rate 3 09/25/24 10:05 Temperature 96.9 F L Pulse Rate Respiratory Rate Blood Pressure Pulse Oximetry Oxygen Delivery Method Oxygen Flow Rate Fraction of Inspired Oxygen 32 SaO2/FiO2 Ratio 293 Oxygen Delivery Method Room Air Oxygen Flow Rate 3 Narrative Exam Narrative: GENERAL: The patient is not in any acute distress. Awake and alert. HEENT: Nonicteric sclerae, PERRLA, EOMI. Oropharynx clear. MMM today. Conjunctivae appear well perfused. HEART: Regular rate and rhythm without murmurs. No lower extremities edema. LUNGS: slight diffuse wheezing, improved from yesterday. ABDOMEN: Soft, positive bowel sounds, nontender. SKIN: No rash, no excessive bruising, petechiae, or purpura. NEUROLOGIC: AxO x 3. Cranial nerves II-XII intact without motor/sensory deficit. Objective Labs 09/25/24 04:13 09/25/24 04:13 Labs: Laboratory Results - last 24 hr 09/25/24 04:13 WBC 8.7 RBC 4.30 Hgb 14.4 Hct 43.6 MCV 101.4 H MCH 33.4 MCHC 32.9 RDW 12.9 Plt Count 138 L Neut % (Auto) 84.0 H Lymph % (Auto) 6.5 L [place] % (Auto) 7.3 Eos % (Auto) 1.5 L Baso % (Auto) 0.7 Neut # (Auto) 7300 H Lymph # (Auto) 600 L [place] # (Auto) 600 Eos # (Auto) 100 Baso # (Auto) 100 Sodium 136 L Potassium 3.7 Chloride 96 L Carbon Dioxide 39 H BUN 41 H Creatinine 1.12 H Estimated GFR 50 L BUN/Creatinine Ratio 36.6 H Glucose 164 H Calcium 10.5 H PFSH Medical History GERD (gastroesophageal reflux disease) Skin lesion of back Hyperlipidemia Coronary artery disease Tobacco dependency Diabetes type 2, controlled Diabetes COPD (chronic obstructive pulmonary disease) Surgical History History of bilateral inguinal hernia repair History of bowel resection History of coronary artery bypass graft Family History Mother Hypertension Father Heart disease Grandmother Diabetes mellitus Grandfather Cancer Social History household members: children and other Smoking Status: Current every day smoker alcohol intake: never Assessment & Plan Assessment & Plan narrative: COPD w/ exacerbation. - changed IV solumedrol to oral prednisone, continue 40 mg daily. - improving dyspnea at rest. Dyspnea is complicated by anxiety with ambulation. - sputum culture with mold and yeast, not likely contributing to current symptoms. - PT / OT to continue, recommending home with assistance. - CTA negative for PE. Does show emphesematous changes. - consider evaluation for home PiPAP at night. Possible acute on chronic diastolic heart failure. - s/p IV Lasix in ER though patient appeared dehydrated after. Cr improved the last couple of days. - Held furosemide initially. Then restarted home PO dose. Tried IV diuresis yesterday given continued dyspnea on exertion. Given some improvement today, continue to try IV diuresis again today with 40 mg IV BID to see if any improvement in dyspnea on exertion. - probnp elevation likely due to chronic atrial dilatation from underlying COPD. Hypercalcemia - mild with calcium 11.1, likely slight dehydration initially and now improved slightly. Essentially stable the last few days. - continue to follow with diuresis. Elevated creatinine - unknown baseline Cr currently. 1.12 today. Likely represents baseline. - held furosemide as above, monitor with diuresis. - continue to follow BMP. Acute on Chronic respiratory failure with hypoxia. - titrate oxygen to 89-96% while on supplemental therapy. Incidental lung nodule 1.5cm. Follow up with repeat imaging as reccomended in 3 months. Hyperlipidemia - continue home statin Tobacco use - continue nicotine patch, counseled on cessation Dependent diabetes insulin. Continue home glargine 35 U nightly, sliding scale. High sugars at mealtimes, consider addition of meal-time insulin depending on glucose levels today. DVT prophylaxis heparin sub Code status is full code. Disosition, likely home in 1-2 more days. Time-Based Coding :: [TOTAL MINUTES] spent with patient and on the chart (including review of chart, obtaining history, exam, reviewing outside data, placing orders, documenting exam and treatment plan, and counseling patient) on [DATE]. Quality VTE Deep Vein Thrombosis/Pulmonary Embolism Present on Admission: No
--- NOTE | 2024-09-25 11:59 | CM.DPC ---
DCP Cont. Reviewed EMR and team rounds for status updates. Pt continues to be SOB with any exertion, and is pursed lip breathing at rest. PT/OT recommending SNF rehab, however when this [employer] met w/her to discuss this, she outright stated that she will not be going to rehab, and will go home w/HH. Per Hospitalist, likely another 1-2 days before being medically ready to d/c home.
[2024-09-25] MEDS: INSULIN LISPRO 100 UNIT/ML 3ML VIAL SUBCUT ×3 (12:45→21:16)
--- NOTE | 2024-09-25 13:23 | PC.NURSE ---
Patient has not had BM, encouraged stool softners today which patient agrees to take. Patient declines miralax (states she is unable to tolerate) and suppository or enema. Patient states she has prunes for breakfast and is drinking water. Patient denies abdominal pain, n/v, continue to monitor for BM.
--- NOTE | 2024-09-25 15:45 | PT.IPTN ---
Current Diagnoses Chronic obstructive pulmonary disease with (acute) exacerbation (09/19/24) Physical Therapy Treatment Note M2 PT-IP Current Condition Start: 09/20/24 09:04 Freq: NEEDED Status: Active Protocol: Document 09/20/24 10:43 [facility] (Rec: 09/20/24 11:14 [facility] [id number]) Physical Therapy Current Condition Current Condition Evaluation Date 09/20/24 Treatment Diagnosis COPD exacerbation, SOB M3 PT-IP Subjective Start: 09/20/24 09:04 Freq: NEEDED Status: Active Protocol: Document 09/25/24 15:45 [facility] (Rec: 09/25/24 17:14 [facility] [id number]) Subjective Physical Therapy Visit Type Type Treatment Note Visit Start Time 15:45 Visit Stop Time 15:55 Number of ELECTRICIAN STATION ASSISTANT Visits 0 Physical Therapy Visit Comments Patient Comments checked on pt and initially refusing PT; checked back after ~ 1 hour and agreed to do PT M4 PT-IP Mobility and Gait Start: 09/20/24 09:04 Freq: NEEDED Status: Active Protocol: Document 09/25/24 15:45 [facility] (Rec: 09/25/24 17:14 AB [id number]) PT-Bed Mobility Assessment Supine to Sit Supine to Sit Standby Assistance,Head of Bed Elevated,Bedrails PT-Transfer Assessment Sit to and From Stand Sit to and from Stand Standby Assistance,1 Person Assistance,Use of Upper Extremities Equipment Transfer Assistive Device Gait Belt,Straight Cane Orthotic/Prosthetic Devices or Brace: No Transfers Transfer Destination Bedside Commode Transfer Technique Stand Step Pivot Transfer Ability Level of Assist Standby Assistance,1 Person Assistance,Use of Upper Extremities Comments Mobility Comments pt supine in bed. completed supine to sit SBA with HOB elevated. pt wants to use the toilet but wants to walk first . offered walking to the toilet but pt refused and wants to use the bedside commode. pt completed sit to stand SBA and amb[place] in [place] [facility] [place] ~ 35 ft. presents with unsteady slow paced gait but without LOB. pt needing stand rest breaks in between walking. O2 sat 88 -94% with 3L/min O2. TN: 110- 112 after ambulation. pt sat on EOB and rested. encouraged to walk again but declined and wants to use the toilet. completed sit to stand and step transfer to the bedside commode using FWW SBA. pt wants to sit on the commode for a little while. call light and table next to pt. informed nurse. Gait Assessment Gait Gait Assistance Required: Standby Assistance Distance (Feet) 35 Able to Maintain Weight Bearing Status Yes During Gait Assistive Devices Assistive Device Gait Belt,Straight Cane Orthotic/Prosthetic Devices or Brace: No Gait Deviations General Gait Pattern Antalgic,Decreased Stride Length,Decreased Feet Clearance Factors Limiting Gait Function Factors Limiting Gait Function Decreased Activity Tolerance, Decreased Strength,Limited Range of Motion,Poor Balance, Poor Safety Awareness M5 PT-IP Objective Assessments Start: 09/20/24 09:04 Freq: NEEDED Status: Active Protocol: Document 09/20/24 10:43 [facility] (Rec: 09/20/24 11:14 [facility] [id number]) Orientation Orientation/Cognition Level of Alertness Alert Orientation Name,Age,Birthday,Month,Date, Place,Situation Language Function Ability No Deficits Noted Safety Awareness Decreased Safety Awareness Memory Description No Deficits Noted Gross Range of Motion Upper Extremity ROM Impairments Defer to OT Lower Extremity ROM Impairments Decreased hip extension noted in postural changes, functional mobility in stooped posture presentation Strength Comments Strength Comments See ROM comments for LEs Coordination Assessment Assessment Coordination Comments Slow and effort-full mobility and tasks Sensation Assessment Comments Sensation Comments Did not test Muscle Tone Muscle Tone WNL Yes M6 PT-IP Treatment Start: 09/20/24 09:04 Freq: NEEDED Status: Active Protocol: Document 09/25/24 15:45 [facility] (Rec: 09/25/24 17:14 [facility] [id number]) Physical Therapy Treatment Education Education Provided Safety M7 PT-IP Assessment and Plan Start: 09/20/24 09:04 Freq: NEEDED Status: Active Protocol: Document 09/25/24 15:45 [facility] (Rec: 09/25/24 17:14 [facility] [id number]) PT Summary Assessment and Plan Potential Rehabilitation Potential Fair Summary Impairments Pain,ROM,Strength,Balance, Coordination,Sensation,Tone, Cognition,Bed Mobility, Transfers,Gait,Activity Tolerance Progress Towards Goals Slow Progress due to Activity Tolerance Assessment Summary pt requiring SBA with mobility using SPC and continues to have decrease activity tolerance with (+) SOB but O2 sat 88-94% with O2 on. pt plans to go home with son to assist. will complete stair climbing training when appropriate as pt has steps to enter the house. Goals Bed Mobility Goal Independent Transfer Goal Standby Assistance,Cane,Front Wheeled Walker,Four Wheeled Walker Gait Goal Standby Assistance,Cane,Front Wheel Walker,Four Wheel Walker Gait Distance 50 Other Goals Pt will ascend and descend 3 steps with left rail and LRAD (likely cane) and no more than CGA to allow safe home entry. LRAD training if SPC is not appropriate: RW vs 4WRW given pulmonary presentation Days to Meet Goals 5 Frequency of Treatment Frequency Of Treatment Once a Day Treatment Plan Physical Therapy Treatment Plan Bed Mobility Training,Transfer Training,Gait Training, Therapeutic Exercise,Balance Retraining,Discharge Planning Other Recommendations and Next Treatment stair climbing when Focus appropriate Precautions Other Precautions O2 sat Recommendations To Nursing Amount of Assist Needed 1 Person Assist Discharge Recommendations PT Discharge Recommendations Home with 16/05 Assist Available,Home Health Transportation Needs at Discharge Private Vehicle
[2024-09-25] MEDS: OXYCODONE IR 5 MG TABLET PO (16:10)
[2024-09-25] MEDS: LORazepam 0.5 MG TABLET PO (16:11)
[2024-09-25] MEDS: ASPIRIN EC 81 MG TABLET PO (21:12)
[2024-09-25] MEDS: SENNOSIDES 8.6 MG TABLET 17.2 MG PO (21:13)
[2024-09-25] MEDS: levoFLOXacin 250 MG TABLET PO (21:16)
[2024-09-25] MEDS: INSULIN GLARGINE 100 UNIT/ML 3ML PEN 35 UNIT SUBCUT (21:17)
[2024-09-25] MEDS: EZETIMIBE 10 MG TABLET PO (21:19)
[2024-09-25] MEDS: ATORVASTATIN 20 MG TABLET 80 MG PO (21:19)
[2024-09-26] VITALS (45 sets, daily range): BP systolic 127–148; BP diastolic 60–86; PULSE 69–99; RESP 19–23; TEMP 36–36.4; O2SAT 90–97
[2024-09-26 05:58] LABS: BUN Creatinine Ratio 37.9 (6-22); Blood Urea Nitrogen 44 mg/dL (7-17); Calcium 10.8 mg/dL (8.4-10.2); Carbon Dioxide 37 mmol/L (22-32); Chloride 95 mmol/L (98-107); Estimated Glomerular Filt Rate 48 mL/min (>60); Glucose 162 mg/dL (80-110); HEMOLYSIS 18 (0-50); Potassium 3.8 mmol/L (3.4-5.1); Sodium 134 mmol/L (137-145)
[2024-09-26 06:06] LABS: Add Manual Diff / Slide Review NO; Basophils Absolute Auto 100 /uL (0-100); Basophils Percent Auto 1.1 % (0-2); Eosinophils Absolute Auto 100 /uL (0-450); Eosinophils Percent Auto 0.8 % (2-4); Hematocrit 42.8 % (36-46); Hemoglobin 14.4 g/dL (12.0-16.0); Lymphocytes Absolute Auto 400 /uL (1100-4500); Mean Corpuscular HGB Conc 33.6 % (30-36); Mean Corpuscular Hemoglobin 33.6 PG (26-34); Mean Corpuscular Volume 100.1 fL (80-100); Monocytes Absolute Auto 700 /uL (0-900); Neutrophils Absolute Auto 9000 /uL (1500-7000); Neutrophils Percent Auto 87.1 % (50-75); Platelet Count 148 X10^3/uL (150-400); Red Blood Cell Count 4.28 X10^6/uL (4.0-5.2); Red Cell Distribution Width 13.2 % (11.6-14.8); White Blood Cell Count 10.3 X10^3/uL (4.5-11.0)
[2024-09-26] MEDS: ALBUTEROL 2.5 MG/3 ML NEB (ADULT) INH ×4 (07:28→19:00)
[2024-09-26] MEDS: BUDESONIDE 0.5 MG/2 ML NEB INH ×2 (07:28→19:00)
--- NOTE | 2024-09-26 07:49 | PM.PN.1 ---
Subjective Subjective Interval history: Interval history: 79 year old female admitted with acute respiratory failure and COPD exacerbation. She is still on some supplemental oxygen, uses 3L at home. She did not need BiPAP overnight last night. She feels a bit better today with diuresis, changed to IV furosemide yesterday. Will continue today. S: She feels a bit better, is on 3 L of oxygen would like to go home tomorrow. She was DNR and declines any intubation. She continues to smoke 4 packs cigarettes a day. She was a deep cough and difficulty pulling the phlegm out. She notes a personal expectation of time left in her life to be about 1 month. We discussed hospice, and she was open to this and we will set up a informational. Exam Vital Signs (past 8 hours): - 09/26/24 00:00 09/26/24 04:00 09/26/24 07:30 Temperature 96.8 F L 97.4 F L Pulse Rate 83 73 Respiratory Rate 23 20 Blood Pressure 139/62 127/61 Pulse Oximetry 94 94 92 Oxygen Delivery Method Nasal Cannula Oxygen Flow Rate 2 2 3 Fraction of Inspired Oxygen 32 SaO2/FiO2 Ratio 293 Oxygen Delivery Method Nasal Cannula Oxygen Flow Rate 3 Narrative Exam Narrative: NAD, alert and oriented. Fluent speech. Lungs are with globally diminished breath sounds of 1/4 and prolonged expiratory phase. Intermittent wheezing and rhonchi. She was on 3 L of oxygen. She was normal rate and effort of respiration. Heart is regular, no murmur gallop or rub. Abdomen is soft, non distended. Extremities are free of edema. Objective Labs 09/26/24 04:15 09/26/24 04:15 Labs: Laboratory Results - last 24 hr 09/26/24 04:15 WBC 10.3 RBC 4.28 Hgb 14.4 Hct 42.8 MCV 100.1 H MCH 33.6 MCHC 33.6 RDW 13.2 Plt Count 148 L Neut % (Auto) 87.1 H Lymph % (Auto) 4.0 L [place] % (Auto) 7.0 Eos % (Auto) 0.8 L Baso % (Auto) 1.1 Neut # (Auto) 9000 H Lymph # (Auto) 400 L [place] # (Auto) 700 Eos # (Auto) 100 Baso # (Auto) 100 Sodium 134 L Potassium 3.8 Chloride 95 L Carbon Dioxide 37 H BUN 44 H Creatinine 1.16 H Estimated GFR 48 L BUN/Creatinine Ratio 37.9 H Glucose 162 H Calcium 10.8 H [facility] Medical History GERD (gastroesophageal reflux disease) Skin lesion of back Hyperlipidemia Coronary artery disease Tobacco dependency Diabetes type 2, controlled Diabetes COPD (chronic obstructive pulmonary disease) Surgical History History of bilateral inguinal hernia repair History of bowel resection History of coronary artery bypass graft Family History Mother Hypertension Father Heart disease Grandmother Diabetes mellitus Grandfather Cancer Social History household members: children and other Smoking Status: Current every day smoker alcohol intake: never Assessment & Plan Assessment & Plan narrative: 1. COPD w/ exacerbation. Present on admission and improving. - changed IV solumedrol to oral prednisone, continue 40 mg daily. - improving dyspnea at rest. Dyspnea is complicated by anxiety with ambulation. - sputum culture with mold and yeast, not likely contributing to current symptoms. - PT / OT to continue, recommending home with assistance. - CTA negative for PE. Does show emphesematous changes. - consider evaluation for home PiPAP at night. 2. Acute on chronic diastolic heart failure. Present on admission and active. - s/p IV Lasix in ER though patient appeared dehydrated after. Cr improved the last couple of days. 3. Hypercalcemia, Present on admission and active. 4. PATRICA, Present on admission and active. 5. Acute on Chronic respiratory failure with hypoxia. Present on admission and improved. - titrate oxygen to 89-96% while on supplemental therapy. 6. Incidental lung nodule 1.5cm. Present on admission and active. - Follow up with repeat imaging as reccomended in 3 months. 7. Hyperlipidemia, Present on admission and active. - continue home statin 8. Tobacco dependence, Present on admission and active. - continue nicotine patch, counseled on cessation 9. DM 2, insulin requiring. Present on admission and active. PLAN: Continue current measures. Hospice informational and referral Anticipate discharge home September 27 with 3 L of oxygen and pending consideration of hospice opening. DVT prophylaxis heparin sub Code status is DNR. LOC: [facility]. MIC: home 09/27. Time-Based Coding :: [TOTAL MINUTES] spent with patient and on the chart (including review of chart, obtaining history, exam, reviewing outside data, placing orders, documenting exam and treatment plan, and counseling patient) on [DATE]. Quality VTE Deep Vein Thrombosis/Pulmonary Embolism Present on Admission: No
[2024-09-26] MEDS: INSULIN LISPRO 100 UNIT/ML 3ML VIAL SUBCUT ×3 (08:42→17:42)
[2024-09-26] MEDS: NICOTINE 21 MG PATCH TOP (08:43)
[2024-09-26] MEDS: FUROSEMIDE 40 MG/4 ML VIAL IV ×2 (08:44→17:42)
[2024-09-26] MEDS: SODIUM CHLORIDE 0.9% FLUSH 10 ML IV ×2 (08:45→21:06)
[2024-09-26] MEDS: DOCUSATE 100 MG CAPSULE PO ×2 (08:45→21:05)
[2024-09-26] MEDS: HEPARIN 5,000 UNIT/ML VIAL 5000 UNIT SUBCUT ×2 (08:45→21:03)
[2024-09-26] MEDS: ISOSORBIDE MONONITRATE ER 30 MG TABLET PO ×2 (08:49→21:04)
[2024-09-26] MEDS: PANTOPRAZOLE DR 20 MG TABLET PO (08:49)
[2024-09-26] MEDS: predniSONE 20 MG TABLET 40 MG PO (08:49)
[2024-09-26] MEDS: cloNIDine 0.1 MG TABLET PO ×2 (08:49→21:06)
[2024-09-26] MEDS: METOPROLOL ER 50 MG TABLET PO ×2 (08:49→21:05)
[2024-09-26] MEDS: LORATADINE 10 MG TABLET PO (08:49)
[2024-09-26] MEDS: OXYCODONE IR 5 MG TABLET PO ×2 (13:00→21:07)
--- NOTE | 2024-09-26 13:43 | OT.IPNOTE ---
Pt just wanting to rest at this time, not seen.
--- NOTE | 2024-09-26 13:53 | CM.DPC ---
DCP Cont. Reviewed EMR and team rounds for status updates. Per Hospitalist, pt is now open to having hospice services post-d/c at home. [facility]. MIC: 09/27/24. Her son will provide transport home. Cont. to monitor for final hospice plan and will communicate this to pt once confirmed.
--- NOTE | 2024-09-26 14:10 | PT.IPTN ---
Current Diagnoses Chronic obstructive pulmonary disease with (acute) exacerbation (09/19/24) Physical Therapy Treatment Note M2 PT-IP Current Condition Start: 09/20/24 09:04 Freq: NEEDED Status: Active Protocol: Document 09/20/24 10:43 MB (Rec: 09/20/24 11:14 MB [id number]) Physical Therapy Current Condition Current Condition Evaluation Date 09/20/24 Treatment Diagnosis COPD exacerbation, SOB M3 PT-IP Subjective Start: 09/20/24 09:04 Freq: NEEDED Status: Active Protocol: Document 09/26/24 14:10 AB (Rec: 09/26/24 14:59 AB [id number]) Subjective Physical Therapy Visit Type Type Treatment Note Visit Start Time 14:10 Visit Stop Time 14:25 Number of TV PRODUCTION ASSISTANT Visits 0 Physical Therapy Visit Comments Patient Comments agreeable to do PT M4 PT-IP Mobility and Gait Start: 09/20/24 09:04 Freq: NEEDED Status: Active Protocol: Document 09/26/24 14:10 AB (Rec: 09/26/24 14:59 AB [id number]) PT-Bed Mobility Assessment Supine to Sit Supine to Sit Independent,Head of Bed Elevated Sit to Supine Sit to Supine Independent,Head of Bed Elevated PT-Transfer Assessment Sit to and From Stand Sit to and from Stand Standby Assistance,1 Person Assistance,Use of Upper Extremities Equipment Transfer Assistive Device None Orthotic/Prosthetic Devices or Brace: No Comments Mobility Comments pt supine in bed and agreed to do PT. pt with 6 steps to enter the house. pt stated that she can do stairs and does not want to do stair climbing training but agreed to do up/down step stool using FWW. pt completed supine to sit mod i with HOB elevated. completed up/down step stool using FWW SBA. pt sat back on EOB. (+) SOB. O2 sat 85% but increased to 87% in <15 sec. pt wanting to sit on EOB for a few minutes. O2 sat increased to 91% after ~ 2 min with O2 supplement. pt agreed to ambulate and completed ~ 20 ft using SPC SBA. pt requested to go back to bed afterwards. sit to supine mod I. call light and table placed within reach. Gait Assessment Gait Gait Assistance Required: Standby Assistance Distance (Feet) 20 Able to Maintain Weight Bearing Status Yes During Gait Assistive Devices Assistive Device None Orthotic/Prosthetic Devices or Brace: No Gait Deviations General Gait Pattern Ataxic,Decreased Stride Length ,Decreased Feet Clearance Factors Limiting Gait Function Factors Limiting Gait Function Decreased Activity Tolerance, Decreased Strength,Limited Range of Motion,Poor Balance, Poor Safety Awareness M5 PT-IP Objective Assessments Start: 09/20/24 09:04 Freq: NEEDED Status: Active Protocol: Document 09/20/24 10:43 MB (Rec: 09/20/24 11:14 MB [id number]) Orientation Orientation/Cognition Level of Alertness Alert Orientation Name,Age,Birthday,Month,Date, Place,Situation Language Function Ability No Deficits Noted Safety Awareness Decreased Safety Awareness Memory Description No Deficits Noted Gross Range of Motion Upper Extremity ROM Impairments Defer to OT Lower Extremity ROM Impairments Decreased hip extension noted in postural changes, functional mobility in stooped posture presentation Strength Comments Strength Comments See ROM comments for LEs Coordination Assessment Assessment Coordination Comments Slow and effort-full mobility and tasks Sensation Assessment Comments Sensation Comments Did not test Muscle Tone Muscle Tone WNL Yes M6 PT-IP Treatment Start: 09/20/24 09:04 Freq: NEEDED Status: Active Protocol: Document 09/26/24 14:10 AB (Rec: 09/26/24 14:59 AB [id number]) Physical Therapy Treatment Education Education Provided Safety M7 PT-IP Assessment and Plan Start: 09/20/24 09:04 Freq: NEEDED Status: Active Protocol: Document 09/26/24 14:10 AB (Rec: 09/26/24 14:59 AB [id number]) PT Summary Assessment and Plan Potential Rehabilitation Potential Fair Summary Impairments Pain,ROM,Strength,Balance, Coordination,Sensation,Tone, Cognition,Bed Mobility, Transfers,Gait,Activity Tolerance Progress Towards Goals Slow Progress due to Activity Tolerance Assessment Summary pt continues to have decrease activity tolerance with (+) SOB and needing increase rest breaks in between activities. pt lives with her family and will have assistance at home. pt may go home when medically stable. Goals Bed Mobility Goal Independent Transfer Goal Standby Assistance,Cane,Front Wheeled Walker,Four Wheeled Walker Gait Goal Standby Assistance,Cane,Front Wheel Walker,Four Wheel Walker Gait Distance 50 Other Goals Pt will ascend and descend 3 steps with left rail and LRAD (likely cane) and no more than CGA to allow safe home entry. LRAD training if SPC is not appropriate: RW vs 4WRW given pulmonary presentation Days to Meet Goals 5 Frequency of Treatment Frequency Of Treatment Once a Day Treatment Plan Physical Therapy Treatment Plan Bed Mobility Training,Transfer Training,Gait Training, Therapeutic Exercise,Balance Retraining,Discharge Planning Other Recommendations and Next Treatment stair climbing when Focus appropriate Precautions Other Precautions O2 sat Recommendations To Nursing Amount of Assist Needed 1 Person Assist Discharge Recommendations PT Discharge Recommendations Home with 24/7 Assist Available,Home Health Transportation Needs at Discharge Private Vehicle
[2024-09-26] MEDS: SENNOSIDES 8.6 MG TABLET 17.2 MG PO (21:04)
[2024-09-26] MEDS: levoFLOXacin 250 MG TABLET PO (21:05)
[2024-09-26] MEDS: ASPIRIN EC 81 MG TABLET PO (21:05)
[2024-09-26] MEDS: EZETIMIBE 10 MG TABLET PO (21:07)
[2024-09-26] MEDS: ATORVASTATIN 20 MG TABLET 80 MG PO (21:07)
[2024-09-26] MEDS: CODEINE/GUAIFENESIN LIQUID 5ML UDC 10 ML PO (21:20)
[2024-09-26] MEDS: INSULIN GLARGINE 100 UNIT/ML 3ML PEN 35 UNIT SUBCUT (21:21)
[2024-09-27] VITALS (10 sets, daily range): BP systolic 122–168; BP diastolic 60–72; PULSE 68–91; RESP 19–22; TEMP 36.1–36.6; O2SAT 91–97
[2024-09-27] MEDS: ALBUTEROL 2.5 MG/3 ML NEB (ADULT) INH ×3 (00:01→11:22)
[2024-09-27] MEDS: LORazepam 0.5 MG TABLET PO (02:50)
[2024-09-27] MEDS: BUDESONIDE 0.5 MG/2 ML NEB INH (07:03)
--- NOTE | 2024-09-27 07:45 | PC.NURSE ---
Addendum entered by Lori Lowry R.N. 09/27/24 15:28: 1530 Patient off unit via wheelchair. Belongings in possession. IV previously removed and band-aid applied. Oxygen tank with patient. 1505 Discharge paperwork signed at this time. MD at the bedside, updating patient on plan of care post discharge. Patient with no questions or complaints at this time. Patient to go home with oxygen. RT at the bedside. Addendum entered by Lori Lowry R.N. 09/27/24 14:24: 1424 Discharge paperwork provided to patient. Patient requesting to speak to MD. MD to come to bedside. Patient requesting friend Claudia Longo to be called to pepper picker patient. Call placed to Claudia. Friend to come at 1500. Addendum entered by Lori Lowry R.N. 09/27/24 08:54: 0807 Pharmacy speaking to RN regarding glucose tube. Pharmacy communicated with MD regarding glucose options. Lantus dosage to be reduced for AM. Patient receiving breakfast at this time. Will recheck glucose post meal. 0854 Patient finished eating at this time. Glucose recheck 80. Patient remains with no complaints. Addendum entered by Lori Lowry R.N. 09/27/24 07:54: 0750 Call placed to pharmacy to send oral glucose. Per pharmacy, will send. Patient refusing oral food intake. Original Note: 1580 Report received from nightshift RN. 4818 Patient reported BS 57. Patient with no complaints of dizziness. Patient AAO x's 3. Offered juice to increased BS, patient refused. Educated on the importance of increasing BS patient preferring own glucose tablet over juice/snack. Nasal cannula noted infusing 3L. Denies pain, numbness and tingling. Able to ROWELL. Call light within reach and bed in lowest position.
[2024-09-27] MEDS: LORATADINE 10 MG TABLET PO (08:52)
[2024-09-27] MEDS: DOCUSATE 100 MG CAPSULE PO (08:52)
[2024-09-27] MEDS: predniSONE 20 MG TABLET 40 MG PO (08:52)
[2024-09-27] MEDS: PANTOPRAZOLE DR 20 MG TABLET PO (08:53)
[2024-09-27] MEDS: NICOTINE 21 MG PATCH TOP (08:53)
[2024-09-27] MEDS: polyethylene glycoL 3350 17 GM POWD.PACK PO (08:54)
[2024-09-27] MEDS: HEPARIN 5,000 UNIT/ML VIAL 5000 UNIT SUBCUT (08:54)
[2024-09-27] MEDS: SODIUM CHLORIDE 0.9% FLUSH 10 ML IV (08:54)
[2024-09-27] MEDS: METOPROLOL ER 50 MG TABLET PO (09:00)
[2024-09-27] MEDS: cloNIDine 0.1 MG TABLET PO (09:02)
[2024-09-27] MEDS: ISOSORBIDE MONONITRATE ER 30 MG TABLET PO (09:02)
[2024-09-27] MEDS: FUROSEMIDE 40 MG/4 ML VIAL IV (09:09)
[2024-09-27] MEDS: INSULIN GLARGINE 100 UNIT/ML 3ML PEN 16 UNIT SUBCUT (09:11)
--- NOTE | 2024-09-27 12:42 | PM.DS.1 ---
History of Present Illness History of Present Illness Chief complaint: SOB Narrative: 79-year-old female with past medical history of COPD on 3 L of oxygen at baseline, hyperlipidemia, CHF, insulin-dependent diabetes and GERD presents with complain a shortness of breath. Per the patient's report, over the last few weeks, the patient has been having progressively increasing shortness of breath. The patient was diagnosed with pneumonia and started on amoxicillin a week ago. The patient was told that she had a incidental nodule on chest x-ray and needed a follow up with a CT scan of a chest. Despite taking the antibiotic and her home inhalers the patient continues to have a productive cough with increasing shortness of breath and wheezing. The patient denies any lower extremities edema. Denies any fever, chills, nausea, vomiting or diarrhea. In our emergency room, the patient was hemodynamically stable. Chest x-ray did not show a clear sign of pneumonia. CT of the chest shows a pulmonary nodule but again did not show any clear sign of pneumonia or pulmonary edema. BMP however was elevated at 1700. IV Solumedrol well as IV Lasix 40 mg times x1 was given. Levaquin given. Patient was still saturating relatively well on 3 to 4L of oxygen. Discharge Providers Provider Date of admission: 09/19/24 20:53 Discharge Date: 09/27/24 Primary care physician: LAURE Tay Consults: 09/19/24 21:40 Consult to Occupational Therapy Evaluate & Treat Comment: Physician Instructions: Evaluate and treat Consult to Physical Therapy Evaluate & Treat Comment: Physician Instructions: Evaluate and Treat Discharge provider: Nakul Holloway MD Summary Hospital Course Discharge Diagnosis: 1. COPD w/ exacerbation. Present on admission and improving. 2. Acute on chronic diastolic heart failure. Present on admission and active. 3. Hypercalcemia, Present on admission and active. 4. PATRICA, Present on admission and improved. 5. Acute on Chronic respiratory failure with hypoxia. Present on admission and improved. - back to chronic 3 liters. 6. Incidental lung nodule 1.5cm. Present on admission and active. - Follow up with repeat imaging as reccomended in 3 months. 7. Hyperlipidemia, Present on admission and active. 8. Tobacco dependence, Present on admission and active. 9. DM 2, insulin requiring. Present on admission and active. Hospital Course: She was admitted with evidence of acute COPD exacerbation and acute on chronic hypoxic respiratory failure. She was initially treated with oxygen and IV steroids. There was a question of acute on chronic heart failure and she was given IV diuretics and had some evidence of secondary volume depletion and PATRICA. No further diuresis followed and she was continued on measures for COPD exacerbation. Her steroids were transitioned to oral and she would slow but constant improvement of her symptoms. On the day before discharge I asked her how long she thought she would left to live and she would guess about 1 month. I talked to her about initiating hospice for additional support at home and she was open to this. We did a hospice informational prior to her discharge home. She was at home with family members. She continues to smoke about 4 packs of cigarettes a day. She did have labile sugars here with hyperglycemia and hypoglycemia. We elected after discussing her regimen to change her Lantus from 34 daily to 16 units b.i.d.. The patient was open to this change. Status at Discharge Functional status at discharge: uses cane/walker Overall status at discharge: patient is progressing back to baseline Time Spent with Patient Time spent: Greater than 30 minutes Exam Vital Signs (past 8 hours): - 09/27/24 07:00 09/27/24 07:05 09/27/24 08:00 Temperature 97.8 F Pulse Rate 77 Respiratory Rate 21 Blood Pressure 162/71 H Pulse Oximetry 96 95 Oxygen Delivery Method Nasal Cannula Nasal Cannula Oxygen Flow Rate 3 09/27/24 09:00 09/27/24 09:02 09/27/24 12:05 Temperature 97.9 F Pulse Rate 91 H 91 H 82 Respiratory Rate 22 Blood Pressure 168/72 H 168/72 H 145/65 H Pulse Oximetry 91 Oxygen Delivery Method Oxygen Flow Rate 2 Fraction of Inspired Oxygen 32 SaO2/FiO2 Ratio 300 Oxygen Delivery Method Nasal Cannula Oxygen Flow Rate 2 Narrative Exam Narrative: NAD, alert and oriented. Fluent speech. Lungs are with diminished breath sounds and prolonged expiratory phase. She has less in terms of rhonchi and wheezing and has a normal rate and effort of breathing. Heart is regular, no murmur gallop or rub. Abdomen is soft, non distended. Extremities are free of edema. Objective ECG Impression: Sinus rhythm with occasional premature ventricular complexes Minimal voltage criteria for LVH, may be normal variant ( Sokolow-Mathew ) Nonspecific ST and T wave abnormality Imaging Multiple studies:: Radiologist's impression: ECHO: The left ventricle is normal in size. Left ventricular systolic function is low normal. The ejection fraction is estimated to be 50-55%. Diastolic parameters suggest a pseudonormalization pattern, consistent with probable elevated filling pressures. Borderline right ventricular enlargement. Right ventricular systolic function is borderline reduced. The right ventricular systolic pressure is estimated to be at least 46 mmHg based on an estimated right atrial pressure of 8 mm Hg. The left atrium is borderline dilated. There is mild mitral regurgitation. There is mild to moderate tricuspid regurgitation. The aortic root is normal size. CXR: Stable left pleural effusion or pleural plaquing. Stable borderline cardiomegaly. Chest CTA: No acute pulmonary embolism. No dense airspace consolidation or pleural effusions. A pulmonary nodular region at the left costophrenic angle with adjacent atelectasis is seen, probably round atelectasis, consider 3 month follow-up to ensure stability. This measures up to 1.5 cm. Partially visualized adrenal nodules, probably larger than prior, consider dedicated adrenal protocol follow-up non urgently. Partially seen abdominal aortic stent graft. 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 Labs 09/26/24 04:15 09/26/24 04:15 [facility] Medical History GERD (gastroesophageal reflux disease) Skin lesion of back Hyperlipidemia Coronary artery disease Tobacco dependency Diabetes type 2, controlled Diabetes COPD (chronic obstructive pulmonary disease) Surgical History History of bilateral inguinal hernia repair History of bowel resection History of coronary artery bypass graft Family History Mother Hypertension Father Heart disease Grandmother Diabetes mellitus Grandfather Cancer Social History household members: children and other Smoking Status: Current every day smoker alcohol intake: never Discharge Assessment & Plan Assessment and Plan Assessment: 1. COPD w/ exacerbation. Present on admission and improving. 2. Acute on chronic diastolic heart failure. Present on admission and active. 3. Hypercalcemia, Present on admission and active. 4. PATRICA, Present on admission and improved. 5. Acute on Chronic respiratory failure with hypoxia. Present on admission and improved. - back to chronic 3 liters. 6. Incidental lung nodule 1.5cm. Present on admission and active. - Follow up with repeat imaging as reccomended in 3 months. 7. Hyperlipidemia, Present on admission and active. 8. Tobacco dependence, Present on admission and active. 9. DM 2, insulin requiring. Present on admission and active. Plan of Treatment: Discharge home with a hospice informational. She will continue use 3 L of oxygen and all her chronic medications. She was done with steroids and antibiotics. She also we will split dose her Lantus 16 units twice a day to avoid low and high blood sugars. Recommend PCP follow up within 6 days. Discharge Plan Discharge Plan Patient Disposition: Home Provider Discharge Comment: Stable for discharge home on her usual oxygen 3 L, and hospice informational has been initiated. Discharge orders & Medications Prescriptions: New insulin glargine [Lantus Solostar U-100 Insulin] 100 unit/mL (3 mL) Insulin Pen 16 unit SUBCUT BID Qty: 30 0RF Continued ezetimibe [Zetia] 10 mg tablet 10 mg PO 2200 Symbicort 160-4.5 mcg/actuation HFA aerosol inhaler 2 puff INHALATION BID furosemide 40 mg tablet 40 mg PO BID metoprolol succinate 50 mg cap,[facility],ER 24hr dose pack 50 mg PO BID isosorbide mononitrate 30 mg tablet extended release 24 hr 30 mg PO BID Patient Comments: 10 pm atorvastatin 80 mg tablet 80 mg PO 2200 lorazepam 0.5 mg tablet 0.5 mg PO QD-BID PRN (Reason: Anxiety) Patient Comments: Rarely use. aspirin 81 mg tablet,delayed release (DR/EC) 81 mg PO BEDTIME cetirizine 10 mg capsule 10 mg PO DAILY omeprazole 20 mg capsule,delayed release(DR/EC) 1 tab PO DAILY nitroglycerin 0.4 mg Tablet, Sublingual 0.4 mg SUBLINGUAL Q5-15M PRN (Reason: Chest Pain) levalbuterol tartrate [Xopenex HFA] 45 mcg/actuation HFA aerosol inhaler 2 puff inhalation PRN PRN (Reason: Dyspnea) insulin aspart U-100 [Novolog FlexPen U-100 Insulin] 100 unit/mL (3 mL) Insulin Pen 3 unit SUBCUT 1500 clonidine HCl 0.1 mg tablet 0.1 mg PO BID montelukast 5 mg tablet,chewable 5 mg PO DAILY Discontinued Lantus Solostar U-100 Insulin 100 unit/mL (3 mL) insulin pen 35 unit SUBCUT 2200 Patient Comments: glucose dropped, pt hasn't taken med since 05/20 Follow up/Referrals: Deb Martin ARNP [Primary Care Provider] - Discharge Health Status Multidrug resistant organism: No MDRO Diet/Activity/Treatments Diet: Carb-consistent/Diabetic Activity: As tolerated. Visit Report/Discharge Packet Instructions: DI for Chronic Obstructive Pulmonary Disease Stand Alone Forms: Patient Portal/API, Stroke Signs & Symptoms Discharge Data Primary Care Provider: Deb Martin Quality VTE Deep Vein Thrombosis/Pulmonary Embolism Present on Admission: No
--- NOTE | 2024-09-27 12:57 | PT-IP ANOTE ---
Per rounds, pt to d/c home with hospice, likely today. Will d/c PT.
--- NOTE | 2024-09-27 15:31 | CM.DPC ---
DCP Discharge Home with HH Per MD, pt is medically stable to d/c home with oxygen and agreeable with HH. Per RT, will contact [facility] and provide a concentrator to the patient for transport home as she now is using oxygen during the day rather than just at night as was her baseline. RT updating [facility] on pt's oxygen needs. SW met bedside with pt and confirmed that she spoke with Saige at [facility] today via phone for Info Visit and decision to consider Hospice but did not sign consents yet and [facility] will reach out to patient in about a week to follow up. Pt confirms she remains agreeable to [facility] and SW provided brochure and updated [facility] that pt will d/c home today and faxed discharge summary and F2F. Pt states her neighbor friend will grab her car and provide transport home today as pt's son is legally blind and cannot drive due to macular degeneration. RN updated and bedside. Jeanie Rios, [employer]
--- NOTE | 2024-10-01 09:17 | CM.DPNOTE ---
Call from Saige at [facility] inquiring if pt already discharged the hospital as they have not been able to get ahold of her via pt's cell phone. SW faxed d/c summary to [facility] to review as Saige and pt had confirmed that pt was interested in a follow up call from [facility] this week to determine if she is agreeable to Hospice yet at this time. Saige will continue to try to contact pt at home as pt discharged a few days ago. ADEOLA Melvin
== END 2024-09-27 15:10 | disposition home health service (06) | DRG 190 ==
LOC: ED 20:34 → AC 20:54 → ICU 21:32
PROVIDERS: Emergency Medicine; Internal Medicine; Admitting Provider Internal Medicine; Emergency Provider Emergency Medicine; Family Provider Nurse Practitioner Gerontology; PCP Nurse Practitioner Gerontology; Referring Provider Emergency Medicine; Visit Provider Internal Medicine
DX: J44.1 Chronic obstructive pulmonary disease with (acute) exacerbation (principal); I50.33 Acute on chronic diastolic (congestive) heart failure; J96.21 Acute and chronic respiratory failure with hypoxia; N17.9 Acute kidney failure, unspecified; R91.1 Solitary pulmonary nodule; E78.5 Hyperlipidemia, unspecified; E83.52 Hypercalcemia; F17.210 Nicotine dependence, cigarettes, uncomplicated; E86.9 Volume depletion, unspecified; E11.65 Type 2 diabetes mellitus with hyperglycemia; E11.649 Type 2 diabetes mellitus with hypoglycemia without coma; K21.9 Gastro-esophageal reflux disease without esophagitis; I25.10 Atherosclerotic heart disease of native coronary artery without angina pectoris; Z99.81 Dependence on supplemental oxygen; Z79.4 Long term (current) use of insulin
CPT/HCPCS: 36415; 71045; 71275; 80048; 80053; 82805; 82962; 83605; 83735; 83880; 84484; 85025; 85610; 87070; 87077; 87107; 87205; 87633; 87797; 93005; 93306; 94640; 94660; 94762; 96365; 96375; 97161; 97165; 97530; 97535; 99284; 99285; 99406; J1644; J1815; J1940; J1956; J2060; J2919; J7613; Q9967